=== PATIENT | male | born 1940 | race Caucasian/White ===

== ENCOUNTER 2017-08-30 12:01 | Observation (INO) | payer BC ==
[2017-08-30 12:25] LABS: #Basophils 0.1 thou/uL (0.0-0.2); #Eosinphils 0.2 thou/uL (0.0-0.7); #Monocytes 0.5 thou/uL (0.11-0.59); #Neutrophils 6.6 thou/uL (1.40-6.50); %Basophils 0.6 % (0.0-1.0); %Eosinophils 2.2 % (0.0-10.0); %Lymphocytes 21.6 % (21.0-51.0); %Monocytes 5.6 % (0.0-10.0); Hemoglobin 16.2 g/dL (14.0-18.0); Mean Corpuscular HGB CONC 33.7 g/dL (32.0-36.0); Mean Corpuscular Hemoglobin 30.6 pg (27.0-31.0); Mean Corpuscular Volume 90.7 fl (80.0-94.0); Mean Platelet Volume 7.7 fL (7.4-10.4); Platelet Count 285 thou/uL (130-400); Red Blood Cell (RBC) Count 5.31 mill/uL (4.70-6.10); White Blood Cell (WBC) Count 9.5 thou/uL (4.8-10.8)
[2017-08-30 12:39] LABS: ALT (SGPT) 15 U/L (8-55); AST (SGOT) 17 U/L (5-34); Albumin 4.5 g/dL (3.4-4.8); Alkaline Phosphatase 105 U/L (40-150); Anion Gap 14 mmol/L (10-20); BUN (Urea Nitrogen) 13 mg/dL (8.4-25.7); Bilirubin, Total 0.4 mg/dL (0.2-1.2); Calc. Creatinine Clearance 0 mL/min (70-130); Calcium 9.6 mg/dL (7.8-10.44); Carbon Dioxide 23 mmol/L (23-31); Chloride 103 mmol/L (98-107); Estimated GFR-MDRD 71; Globulin 2.9 g/dL (2.4-3.5); Glucose 206 mg/dL (83-110); Potassium 4.3 mmol/L (3.5-5.1); Protein, Total 7.4 g/dL (5.8-8.1); Sodium 136 mmol/L (136-145)
[2017-08-30 12:43] LABS: CKMB 0.6 ng/mL (0-6.6); Troponin I Less than 0.010 ng/mL (< 0.028)
--- NOTE | 2017-08-30 12:43 | RAD ---
CHEST 1 VIEW: HISTORY: Chest pain. FINDINGS: Cardiac silhouette and pulmonary vasculature are unremarkable. Mediastinum midline with aortic calci fication. No lobar consolidation or evidence of pneumothorax. activity therapist leads overlie the joanie st. IMPRESSION: Atherosclerosis. No active cardiopulmonary abnormalities are otherwise demonstrated. POS: H
--- NOTE | 2017-08-30 13:08 | CT ---
CT BRAIN: HISTORY: Left-sided chest pain, neck pain, tingling, and numbness. FINDINGS: Noncontrast-enhanced CT images of the brain were obtained. The brain is unremarkable. No evidence of intracranial masses, hemorrhages, strokes, or contusions s een. IMPRESSION: Normal CT brain. POS: ALEX
[2017-08-30] MEDS ORDERED: Mag-Al 1200 mg/1200 mg/30 ML UDCUP PO PRN (15:04)
[2017-08-30] MEDS ORDERED: Diabetic Tussin 200 MG/10 ML UDCUP PO PRN (15:04)
[2017-08-30] MEDS ORDERED: Loperamide HCl 2 MG CAP PO PRN (15:04)
[2017-08-30] MEDS ORDERED: hydrALAZINE 20 MG/ML VIAL SLOW IVP PRN (15:04)
[2017-08-30] MEDS ORDERED: Artificial Tears 18 DROP/0.9 ML EA EYE PRN (15:04)
[2017-08-30] MEDS ORDERED: Acetaminophen 325 MG TAB PO PRN (15:04)
[2017-08-30] MEDS ORDERED: Zolpidem Tartrate 5 MG TAB PO PRN (15:04)
[2017-08-30] MEDS ORDERED: Senokot 8.6 MG TAB PO PRN (15:04)
[2017-08-30] MEDS ORDERED: Sodium Chloride 0.65% Nasal 44 ML BOT EA NARE PRN (15:04)
[2017-08-30] MEDS ORDERED: Milk Of Magnesia 30 ML UDCUP PO PRN (15:04)
[2017-08-30] MEDS ORDERED: Ondansetron HCl/PF 4 MG/2 ML Vial IVP PRN (15:04)
[2017-08-30] MEDS ORDERED: Nitroglycerin 0.4 MG TAB (25 Tab Bottle) SL PRN (15:04)
[2017-08-30] MEDS ORDERED: Ondansetron ODT 4 MG TAB PO PRN (15:04)
[2017-08-30] MEDS ORDERED: Eucerin (Mineral Oil/Petrolatum,White) 30 gm Jar TOP PRN (15:04)
[2017-08-30] MEDS ORDERED: Loratadine 10 MG TAB PO PRN (15:04)
[2017-08-30] MEDS ORDERED: HYDROcodone/Acetaminophen 5/325 mg Tablet PO PRN (15:04)
--- NOTE | 2017-08-30 15:32 | HP ---
PRIMARY CARE PHYSICIAN: [facility] call admission. REASON FOR ADMISSION: Chest pain and paraesthesia left upper and lower extremity. HISTORY OF PRESENT ILLNESS: This is a 76-year-old male, who has no significant medical history, who has not seen doctors, never been hospitalized for the last 50 years. This morning around 10:00, he was at home, he was feeling weak. He started having occipital headache , throbbing in nature. Subsequently, he was experiencing left-sided chest pain with paresthesia in t he left upper extremity as well as left lower extremity. He denied any motor weakness. He denied an y facial asymmetry. He denied any associated nausea, vomiting, diaphoresis. He denies any fall, los s of consciousness, seizure, or speech problem. His chest pain subsided, but his paresthesia in left upper and lower extremity was persisted. His he adache intensity was also reduced. He never had this type of problem. He took 2 baby aspirin at [facility], and subsequently, he came to emergency room for evaluation. In the emergency room, he was still complaining of mild headache, paresthesia in left upper and lower extremity as well as some neck discomfort. He denies any right-sided symptoms. He denies any relat ion of chest pain with food, respiration, or activity. He denies any constipation, diarrhea, melena, or hematochezia. He denies any UTI symptoms. In the emergency room, this patient had CT brain and CT [place] both were negative. Routine blood test was also unremarkable. The patient was able to walk to the bathroom by himself. He was feeling some funny sensation on left upper and lower extremity. REVIEW OF SYSTEMS: The following complete review of systems was negative, unless otherwise mentioned in the HPI or below: Constitutional: Weight loss or gain, ability to conduct usual activities. Sk in: Rash, itching. Eyes: Double vision, pain. ENT/Mouth: Nose bleeding, neck stiffness, pain, te nderness. Cardiovascular: Palpitations, dyspnea on exertion, orthopnea. Respiratory: Shortness of breath, wheezing, cough, hemoptysis, fever, or night sweats. Gastrointestinal: Poor appetite, abdo mukul pain, heartburn, nausea, vomiting, constipation, or diarrhea. Genitourinary: Urgency, frequen cy, dysuria, nocturia. Musculoskeletal: Pain, swelling. Neurologic/Psychiatric: Anxiety, depressi on. Allergy/Immunologic: Skin rash, bleeding tendency. Please see my HPI for pertinent positive an d negative. All other review of systems reviewed and negative except as mentioned in the HPI. PAST MEDICAL HISTORY: The patient denies any previous medical history, never been in hospital, never been to the doctor's. Does not know his cholesterol status and never checked his blood pressure in the past. PAST SURGICAL HISTORY: Bilateral cataract surgery. PAST PSYCHIATRIC HISTORY: Reviewed and negative. SOCIAL HISTORY: Patient is and lives at home with family. He is still working with computer -related work. He denies any smoking. He denies any alcohol abuse. He denies any other illicit roland g abuse. He quit smoking 30 years ago. FAMILY HISTORY: Positive for hypertension, diabetes, heart disease among several family members incl uding brother and parents. ALLERGIES: Patient is not taking IBUPROFEN, NAPROXEN, because of hives. CURRENT HOME MEDICATIONS: Patient is not taking any prescribed or non-prescribed medication on regul ar basis. EMERGENCY ROOM COURSE: Reviewed. PHYSICAL EXAMINATION: VITAL SIGNS: On arrival, blood pressure 184/85, pulse 77, respiratory rate 17, temperature 97.5, sat uration 98% on room air, weight 80.2 kilograms. GENERAL: Patient is currently alert, awake, in no obvious acute distress. HEENT: Head: Normocephalic, atraumatic. Eyes: Pupils round, reactive to light. Extraocular muscl e intact. ENT: Oropharynx within normal limits. Moist mucous membranes, no oral lesion, no pharyng eal erythema, no exudate. NECK: Supple, no JVD, no thyromegaly, no carotid bruit, no jugular venous distention. LUNGS: Clear to auscultation without any rhonchi or rales. CARDIAC: S1 and S2 regular. No murmur, no gallop, no rub. ABDOMEN: Soft, bowel sounds present, nontender, nondistended. No organomegaly, no mass, no suprapub ic tenderness. BACK EXAMINATION: Unremarkable, no CVA tenderness. EXTREMITIES: Upper extremities, passive movement of all joints are normal. Lower extremities, no ed suzi. Good peripheral pulsation. SKIN: No skin rash. HEMATOLOGICAL SYSTEM: No lymphadenopathy. PSYCHIATRIC: Normal affect. NEUROLOGIC: The patient is alert, oriented x3. Cranial nerves II-XII intact. Speech, normal. Gait normal. Motor 5/5 in all 4 limbs. Sensation reduced on the left upper and lower extremity. No cer ebellar sign. Plantar bilateral flexor. IMAGING: EKG showing normal sinus rhythm without any ischemic changes. CT brain, based on my review , no acute intracranial process. CT cervical spine with a CT [place] negative for any abnor mality. Chest x-ray normal. SIGNIFICANT LABORATORY DATA: CBC: WBC 9.5, hemoglobin 16.2, platelet 285. BMP: Sodium 136, potass ium 4.3, chloride 103, carbon dioxide 23, anion gap 14, BUN 13, creatinine 1.02, glucose 206, calcium 9.6. LFT: AST 17, ALT 15, alkaline phosphatase 105, albumin 4.5. CK-MB 0.6, troponin I less than 0.010. ASSESSMENT AND PLAN: 1. Acute chest pain. Cardiac enzymes are negative. EKG is normal. Description is atypical. He green s new diagnosis of hypertension. We will keep this patient in the hospital for observation. We will do serial cardiac enzymes and rule out acute coronary syndrome. We will continue with aspirin 325 m g p.o. daily, nitro patch q.8 hourly, check lipid profile for risk stratification, and we will perfor m Cardiolite stress test tomorrow morning for diagnostic reason. 2. Left upper and lower extremity paraesthesia, rule out cerebrovascular accident. The patient's pr esentation with occipital headache and left-sided upper and lower extremity paraesthesia is not entir jen explained by one thing. We need to rule out cerebrovascular accident. We will do neuro check q. 4 hourly. We will keep him on stroke floor. We will obtain MRI brain, echocardiography, as a part o f stroke workup. We will also obtain carotid Doppler to rule out any carotid stenosis. We are going to check a lipid profile, homocysteine level tomorrow, and we will continue with Lipitor 20 mg p.o. at bedtime and we will start lisinopril 5 mg p.o. daily. 3. New onset hypertension, undiagnosed. We will start lisinopril 5 mg p.o. daily and we will monito r vital signs more frequently and adjust blood pressure medication. 4. Deep venous thrombosis prophylaxis. Lovenox 40 mg subcutaneous daily. 5. Gastrointestinal prophylaxis. Pepcid 20 mg p.o. b.i.d. 6. Code status: The patient is FULL CODE. The patient's is surrogate decision maker. Disposition plan based on clinical course. We are expecting patient's stay in hospital [address] of care discussed with the patient and family member at bedside in the emergency room. ADDENDUM: The patient had CT angio, head and neck, in the emergency room and that is why we will can subhash carotid Doppler.
[2017-08-30 16:13] LABS: Troponin I 0.017 ng/mL (< 0.028)
[2017-08-30] MEDS ORDERED: ISOVUE-370 76%-LOCM 1 ML ONE (16:39)
[2017-08-30 17:26] VITALS: BMI 26.6
[2017-08-30 18:58] LABS: Troponin I Less than 0.010 ng/mL (< 0.028)
[2017-08-30 20:01] LABS: Bilirubin Negative (Negative); Blood, Urine Negative (Negative); Clarity CLEAR (Clear); Glucose, Urine (Dipstick) 250 mg/dL (Negative); Leukocyte Negative (Negative); Nitrite Negative (Negative); Protein, Urine (Dipstick) Negative (Neg-Trace); Specific Gravity, Urine 1.015 (1.002-1.036)
[2017-08-30 20:03] LABS: Bacteria/HPF None Seen HPF (None Seen); Hyaline Casts/LPF 0-3 HYALINE CAST LPF (0-3 Hyaline); Pathc Cast-AUWi Flag 0.43 (0-2.49); RBC/HPF 0-3 HPF (0-3); Squamous Epithelial None Seen HPF (0-3); WBC/HPF 0-3 HPF (0-3)
[2017-08-30] MEDS: Nitroglycerin 2% Ointment 1 INCH/1 GM Packet TOP SCH (20:37)
[2017-08-30] MEDS: Famotidine 20 MG TAB PO SCH (20:37)
[2017-08-30] MEDS ORDERED: Atorvastatin Calcium 20 MG TAB PO SCH (21:00)
[2017-08-31 04:53] LABS: Hemoglobin A1c 8.2 % (4.0-6.0)
[2017-08-31 05:15] LABS: Cardiac Risk 4.8 (Less than 4.5)
[2017-08-31] MEDS ORDERED: Dextrose 5% in Water 1,000 ML IV PRN (06:04)
[2017-08-31] MEDS ORDERED: HumaLOG 300 UNITS/3 ML VIAL SC PRN ×2 (06:04)
[2017-08-31] MEDS ORDERED: Dextrose 50% Abboject 50 ML SYRINGE SLOW IVP PRN (06:04)
[2017-08-31] MEDS: Nitroglycerin 2% Ointment 1 INCH/1 GM Packet TOP SCH ×2 (06:23→14:04)
--- NOTE | 2017-08-31 08:21 | PDOC.PN ---
- Subjective Encounter Start Date: 08/31/17 Encounter Start Time: 06:40 -: old records requested/rev Patient seen and examined for parasthesia, no chest pain. No new complaints. No overnight events - Objective Resuscitation Status: Resuscitation Status FULL:Full Resuscitation MAR Reviewed: Yes Vital Signs & Weight: Vital Signs (12 hours) Temp Pulse Resp BP Pulse Ox 08/31/17 07:04 97 08/31/17 03:27 98.6 F 87 20 100/58 L 97 08/30/17 23:43 98.6 F 79 18 120/64 96 08/30/17 21:00 98.2 F 79 18 Weight Weight 180 lb 6.4 oz I&O: 08/30/17 08/31/17 09/01/17 06:59 06:59 06:59 Intake Total 10 Balance 10 Result Diagrams: 08/30/17 12:12 08/30/17 12:12 EKG Reviewed by me: Yes (nsr) Phys Exam - Physical Examination Constitutional: NAD HEENT: PERRLA, moist MMs, sclera anicteric Neck: no JVD, supple Respiratory: no wheezing, no rales, no rhonchi Cardiovascular: RRR, no significant murmur, no rub Gastrointestinal: soft, non-tender, no distention, positive bowel sounds Musculoskeletal: no edema, pulses present Neurological: non-focal, moves all 4 limbs Lymphatic: no nodes Psychiatric: normal affect, A&O x 3 Skin: no rash, normal turgor Dx/Plan (1) Arm paresthesia, left Code(s): R20.2 - PARESTHESIA OF SKIN Status: Acute (2) Chest pain Code(s): R07.9 - CHEST PAIN, UNSPECIFIED Status: Acute (3) Hypertension Code(s): I10 - ESSENTIAL (PRIMARY) HYPERTENSION Status: Acute (4) New onset type 2 diabetes mellitus Code(s): E11.9 - TYPE 2 DIABETES MELLITUS WITHOUT COMPLICATIONS Status: Acute (5) Dyslipidemia Code(s): E78.5 - HYPERLIPIDEMIA, UNSPECIFIED Status: Acute - Plan cont current plan of care, plan discussed w/ family * start metformin 1000 mg po bid * lisinopril, lipitor and aspirine on discharge * today MRI, echo and stress test, if all negative, will discharge later today * if e/o stroke or abnormal stress test, will change to inpt and monitor in hospital * start hyperglycemia protocol treatment * consult dietary for ada diet * discussed with . Review of Systems - Review of Systems Constitutional: negative: fever, chills, sweats, weakness, malaise, other Eyes: negative: Pain, Vision Change, Conjunctivae Inflammation, Eyelid Inflammation, Redness, Other ENT: negative: Ear Pain, Ear Discharge, Nose Pain, Nose Discharge, Nose Congestion, Mouth Pain, Mouth Swelling, Throat Pain, Throat Swelling, Other Respiratory: negative: Cough, Dry, Shortness of Breath, Hemoptysis, SOB with Excertion, Pleuritic Pain, Sputum, Wheezing Gastrointestinal: negative: Nausea, Vomiting, Abdominal Pain, Diarrhea, Constipation, Melena, Hematochezia, Other Genitourinary: negative: Dysuria, Frequency, Incontinence, Hematuria, Retention , Other Musculoskeletal: negative: Neck Pain, Shoulder Pain, Arm Pain, Back Pain, Hand Pain, Leg Pain, Foot Pain, Other Skin: negative: Rash, Lesions, Reza, Bruising, Other Neurological: Numbness. negative: Weakness, Incoordination, Change in Speech, Confusion, Seizures, Other - Medications/Allergies Allergies/Adverse Reactions: Allergies Allergy/AdvReac Type Severity Reaction Status Date / Time ibuprofen Allergy Verified 08/30/17 17:02 Medications: Current Medications Acetaminophen (Tylenol) 650 mg PO Q4H PRN PRN Reason: Headache/Fever or Pain Hydrocodone Bitart/Acetaminophen ([place] 5/325) 1 tab PO Q4H PRN PRN Reason: Moderate Pain (4-6) Al Hydroxide/Mg Hydroxide (Maalox) 30 ml PO Q6H PRN PRN Reason: Heartburn or Indigestion Artificial Tears (Tears Naturale) 0 drop EA EYE PRN PRN PRN Reason: Dry Eyes Aspirin (Ecotrin) 325 mg PO DAILY [facility] Atorvastatin Calcium (Lipitor) 20 mg PO HS [facility] Last Admin: 08/30/17 20:37 Dose: 20 mg Dextrose/Water (Dextrose 50%) 25 gm SLOW IVP PRN PRN PRN Reason: Hypoglycemia Enoxaparin Sodium (Lovenox) 40 mg SC 0900 [facility] Famotidine (Pepcid) 20 mg PO BID [facility] Last Admin: 08/30/17 20:37 Dose: 20 mg Glucagon (Glucagon) 1 mg IM PRN PRN PRN Reason: Hypoglycemia Guaifenesin (Robitussin Sf) 200 mg PO Q4H PRN PRN Reason: Cough Hydralazine HCl (Apresoline) 10 mg SLOW IVP Q4H PRN PRN Reason: Systolic BP > 180 Last Admin: 08/30/17 15:59 Dose: 10 mg Dextrose/Water (D5w) 1,000 mls @ 0 mls/hr IV .Q0M PRN; As Directed PRN Reason: Hypoglycemia Insulin Human Lispro (Humalog) 0 units SC .MODERATE SLIDING SC PRN PRN Reason: Moderate Correctional Scale Insulin Human Lispro (Humalog) 0 units SC .BEDTIME SLIDING SC PRN PRN Reason: Bedtime Correctional Scale Lisinopril (Zestril) 5 mg PO DAILY JAELYN Loperamide HCl (Imodium) 2 mg PO PRN PRN PRN Reason: Diarrhea/Loose Stools Loratadine (Claritin) 10 mg PO DAILYPRN PRN PRN Reason: Sinus Symptoms Magnesium Hydroxide (Milk Of Magnesium) 30 ml PO DAILYPRN PRN PRN Reason: Constipation Mineral Oil/White Petrolatum (Eucerin Cream) 0 gm TOP BIDPRN PRN PRN Reason: Dry Skin Nitroglycerin (Nitro-Bid 2% Ointment) 0.5 inch TOP Q8HR JAELYN Last Admin: 08/31/17 06:23 Dose: Not Given Nitroglycerin (Nitrostat) 0.4 mg SL Q5MIN PRN PRN Reason: Chest Pain Ondansetron HCl (Zofran Odt) 4 mg PO Q6H PRN PRN Reason: Nausea/Vomiting Ondansetron HCl (Zofran) 4 mg IVP Q6H PRN PRN Reason: Nausea/Vomiting Senna (Senokot) 2 tab PO HSPRN PRN PRN Reason: Constipation Sodium Chloride ([place] Nasal [place] 0.65%) 0 ml EA NARE QIDPRN PRN PRN Reason: Nasal Congestion Zolpidem Tartrate (Ambien) 5 mg PO HSPRN PRN PRN Reason: Insomnia
[2017-08-31] MEDS ORDERED: Aspirin 325 mg Enteric Coated Tablet PO SCH (09:00)
[2017-08-31] MEDS ORDERED: Enoxaparin Sodium 40 MG/0.4 ML SYRINGE SC SCH (09:00)
[2017-08-31] MEDS ORDERED: Lisinopril 5 MG TAB PO SCH (09:00)
[2017-08-31] MEDS ORDERED: ADENOSINE 60 MG/20 ML VIAL ONE (09:51)
--- NOTE | 2017-08-31 10:35 | MRI ---
NONCONTRAST ENHANCED MRI IMAGES BRAIN: HISTORY: Left-sided weakness since yesterday. FINDINGS: Multiplanar, multisequence noncontrast enhanced MRI images of the brain obtained. Images demonstrate diffuse cortical atrophy and deep white matter ischemic changes. The patient has had previous bilateral cataract surgeries. No evidence of acute intracranial masses, hemorrhages, st rokes, or contusions seen. Ventricles are of normal size. IMPRESSION: Unremarkable MRI of brain. POS: GREGORY
--- NOTE | 2017-08-31 10:37 | DIS ---
DATE OF ADMISSION: 08/30/2017 DATE OF DISCHARGE: 08/31/2017 PRIMARY CARE PHYSICIAN: [facility] call admission. DISCHARGE DISPOSITION: Home. PRIMARY DISCHARGE DIAGNOSES: 1. Chest pain, ruled out acute coronary syndrome. 2. Sensory paraesthesia, left upper and lower extremity. 3. New onset diabetes type 2. 4. Dyslipidemia. 5. Hypertension. PRIMARY PROCEDURE AND OPERATION: None. RADIOLOGICAL INVESTIGATION: CT [place] including CT angiography head and neck negative. CT brain negative. Chest x-ray normal. SIGNIFICANT LABORATORY DATA: WBC 9.5, hemoglobin 16.2, platelet 285. Sodium 136, creatinine 1.02. LFT normal. Cardiac enzymes negative. LDL 107. Homocysteine 10.12, hemoglobin A1c 8.2. Urinalysis , glucose present. DISCHARGE MEDICATIONS: Lisinopril 5 mg p.o. daily, aspirin 325 mg p.o. daily, metformin 1000 mg p.o. b.i.d. CONTRAINDICATIONS: None. CODE STATUS: FULL CODE. INPATIENT CONSULTANTS: None. ALLERGIES: IBUPROFEN. DISCHARGE PLAN: Post hospital, the patient will make appointment with primary care physician. He wa nts to make appointment with Dr. Cote. TEST RESULTS PENDING ON DISCHARGE: Echocardiography, stress test and MRI brain. HOSPITAL COURSE: A 76-year-old male with no medical problem who was admitted by me. Please see my H PI for further detail. He was having chest pain and subsequently he was experiencing left upper and lower extremity paraesthesia and that is why he was admitted to the hospital for observation. We did serial cardiac enzyme and ruled out acute coronary syndrome. We were suspecting stroke and that is why we did MRI brain. His initial CT brain and CT angiography head and neck was negative. MRI is pe nding by the time of dictation. He had chest pain and that is why we did stress test and the result is pending by the time of dictation. We are also doing echocardiography, result is pending by the ti me of dictation. He has new onset of diabetes and that is why we provided diabetes education and we started metformin therapy. We started lisinopril for hypertension, Lipitor for cholesterol and aspir in is instructed to take every day basis. Overall, this patient is stable for discharge if all investigation is negative later on today. Plan of care discussed with the family member. The patient is seen and examined at bedside today. Please see my progress note from today for further detail.
[2017-08-31] MEDS: Famotidine 20 MG TAB PO SCH (14:00)
--- NOTE | 2017-08-31 14:38 | NM ---
RADIONUCLIDE STRESS REST MYOCARDIAL PERFUSION SCAN WITH CT ATTENUATION CORRECTION AND SPECT IMAGING LEFT VENTRICULAR WALL MOTION EVALUATION AND EJECTION FRACTION: HISTORY: Chest pain. FINDINGS: Adenosine protocol was used. There is homogeneous uptake of radiotracer throughout the left ventricu lar myocardium. No focal perfusion defect or reversibility. QGS analysis of gated SPECT images show s no focal wall motion abnormalities. Ejection fraction is calculated at 70%. IMPRESSION: Normal myocardial perfusion scan. Normal left ventricular ejection fraction. POS: GREGORY
[2017-08-31 16:16] VITALS: BP 145/68; TEMP 98.4
--- NOTE | 2017-09-01 07:27 | CT ---
CT ARTERIOGRAM NECK WITH IV CONTRAST AND 3D MIP IMAGING CT ARTERIOGRAM HEAD WITH IV CONTRAST AND 3D MIP IMAGING CT BRAIN WITH IV CONTRAST: HISTORY: Headache. TIA. FINDINGS: Emphysematous changes are present at the lung apices. There are degenerative changes of the cervical spine. Calcification within the aortic arch with normal branching of the great vessels. Good flow into each carotid artery and vertebral artery with a dominant right vertebral artery. At each carotid bifurcation, there is mild plaque and calcification without significant stenosis. Pr ominent calcifications are present within each carotid siphon. No evidence of stenosis. [place] is patent. No focal aneurysm or filling defect. No abnormal areas of intracranial enhancement are evident. IMPRESSION: Atherosclerosis. No evidence of significant stenosis. No acute intracranial abnormalities are demon strated. POS: GREGORY
== END 2017-08-31 18:13 | disposition home or self-care (01) ==
LOC: ERS 12:01 → INTOOBSV 14:14 → 2SE 14:14
PROVIDERS: ADMIT Internal Medicine; ATTEND Internal Medicine
DX: R07.89 Other chest pain (principal); R20.2 Paresthesia of skin; R51 Headache; I10 Essential (primary) hypertension; E11.9 Type 2 diabetes mellitus without complications; E78.5 Hyperlipidemia, unspecified; Z87.891 Personal history of nicotine dependence; Z88.6 Allergy status to analgesic agent
CPT/HCPCS: 36415; 36416; 70450; 70496; 70498; 70551; 71045; 78452; 80053; 80061; 81001; 82553; 83036; 83090; 84484; 85025; 93005; 93017; 93306; 94760; 96372; 96374; A9500; G0378; J0153; J0360; J1650

== ENCOUNTER 2017-09-04 11:32 | Emergency (ER) | payer BC ==
[2017-09-04 12:14] LABS: #Basophils 0.1 thou/uL (0.0-0.2); #Eosinphils 0.1 thou/uL (0.0-0.7); #Lymphocytes 1.4 thou/uL (1.20-3.40); #Monocytes 0.7 thou/uL (0.11-0.59); #Neutrophils 10.8 thou/uL (1.40-6.50); %Basophils 0.5 % (0.0-1.0); %Eosinophils 0.5 % (0.0-10.0); %Lymphocytes 10.6 % (21.0-51.0); %Monocytes 5.5 % (0.0-10.0); Mean Corpuscular HGB CONC 35.1 g/dL (32.0-36.0); Mean Corpuscular Hemoglobin 31.4 pg (27.0-31.0); Mean Corpuscular Volume 89.4 fl (80.0-94.0); Mean Platelet Volume 7.3 fL (7.4-10.4); Platelet Count 283 thou/uL (130-400); RBC Distribution Width 11.9 % (11.5-14.5)
[2017-09-04 12:41] LABS: ALT (SGPT) 16 U/L (8-55); AST (SGOT) 21 U/L (5-34); Albumin 4.3 g/dL (3.4-4.8); Alkaline Phosphatase 75 U/L (40-150); Anion Gap 15 mmol/L (10-20); BUN (Urea Nitrogen) 16 mg/dL (8.4-25.7); Bilirubin, Total 0.8 mg/dL (0.2-1.2); CK (CPK) 122 U/L (30-200); Calc. Creatinine Clearance 0 mL/min (70-130); Calcium 9.5 mg/dL (7.8-10.44); Carbon Dioxide 20 mmol/L (23-31); Chloride 96 mmol/L (98-107); Estimated GFR-MDRD 70; Globulin 2.7 g/dL (2.4-3.5); Glucose 120 mg/dL (83-110); Potassium 4.4 mmol/L (3.5-5.1); Sodium 127 mmol/L (136-145)
[2017-09-04 12:42] LABS: CKMB 1.9 ng/mL (0-6.6); Troponin I Less than 0.010 ng/mL (< 0.028)
[2017-09-04 13:12] LABS: Bilirubin Negative (Negative); Blood, Urine Negative (Negative); Clarity CLEAR (Clear); Glucose, Urine (Dipstick) Negative (Negative); Leukocyte Negative (Negative); Nitrite Negative (Negative); Protein, Urine (Dipstick) Negative (Neg-Trace); Specific Gravity, Urine 1.024 (1.002-1.036); Urobilinogen 0.2 mg/dL (0.2-1.0)
== END 2017-09-04 16:54 | disposition home or self-care (01) ==
LOC: ERS 11:32
DX: E86.0 Dehydration (principal); E11.9 Type 2 diabetes mellitus without complications; I10 Essential (primary) hypertension; Z79.82 Long term (current) use of aspirin; Z79.899 Other long term (current) drug therapy; Z79.84 Long term (current) use of oral hypoglycemic drugs
CPT/HCPCS: 36416; 80053; 81003; 82553; 84484; 85025; 87086; 93005; 96360; 96361

== ENCOUNTER 2017-09-09 13:30 | Outpatient (CLI) | payer BC | END 2017-09-09 13:31 | disposition home or self-care (01) | LOC: MWLC DTY 13:30 | PROVIDERS: ATTEND Internal Medicine Geriatric Medicine | DX: E11.9 Type 2 diabetes mellitus without complications (principal); Z71.3 Dietary counseling and surveillance | CPT/HCPCS: 97802 ==

== ENCOUNTER 2019-10-22 23:28 | Inpatient (IN) | payer MEDICARE, OTHER ==
[2019-10-23 00:16] LABS: #Basophils 0.1 thou/uL (0.0-0.2); #Eosinphils 0.3 thou/uL (0.0-0.7); #Lymphocytes 1.1 thou/uL (1.20-3.40); #Monocytes 0.9 thou/uL (0.11-0.59); #Neutrophils 8.1 thou/uL (1.40-6.50); %Eosinophils 2.5 % (0.0-10.0); %Lymphocytes 10.8 % (21.0-51.0); %Monocytes 8.6 % (0.0-10.0); %Neutrophils 77.2 % (42.0-75.0); Hemoglobin 15.5 g/dL (14.0-18.0); Mean Corpuscular HGB CONC 36.3 g/dL (32.0-36.0); Mean Corpuscular Hemoglobin 31.8 pg (27.0-31.0); Mean Corpuscular Volume 87.7 fL (78.0-98.0); Mean Platelet Volume 7.8 fL (7.4-10.4); Platelet Count 254 thou/uL (130-400); RBC Distribution Width 11.5 % (11.5-14.5); Red Blood Cell (RBC) Count 4.87 mill/uL (4.70-6.10); White Blood Cell (WBC) Count 10.5 thou/uL (4.8-10.8)
[2019-10-23 00:42] LABS: ALT (SGPT) 21 U/L (8-55); AST (SGOT) 32 U/L (5-34); Albumin 4.2 g/dL (3.4-4.8); Alkaline Phosphatase 95 U/L (40-110); Anion Gap 13 mmol/L (10-20); BUN (Urea Nitrogen) 9 mg/dL (8.4-25.7); Calc. Creatinine Clearance 0 mL/min (70-130); Calcium 9.3 mg/dL (7.8-10.44); Carbon Dioxide 21 mmol/L (23-31); Chloride 78 mmol/L (98-107); Estimated GFR-MDRD Greater than 90; Globulin 2.5 g/dL (2.4-3.5); Glucose 150 mg/dL (83-110); Potassium 4.7 mmol/L (3.5-5.1); Protein, Total 6.7 g/dL (5.8-8.1)
[2019-10-23 00:56] LABS: Sodium 107 mmol/L (136-145)
[2019-10-23 01:05] LABS: Acetaminophen Less than 6.0 mcg/mL (10.0-30.0); Alcohol Less than 10 mg/dL (Less than 10); Salicylate Less than 8.0 mg/dL (15.0-30.0)
[2019-10-23 01:08] LABS: CKMB 9.4 ng/mL (0-6.6)
[2019-10-23 01:19] LABS: Bacteria/HPF None Seen HPF (None Seen); Bilirubin Negative (Negative); Blood, Urine 1+ (Negative); Clarity Clear (Clear); Glucose, Urine (Dipstick) 500 mg/dL (Negative); Ketone, Urine Trace mg/dL (Negative); Leukocyte 75 Leu/uL (Negative); Nitrite Negative (Negative); Protein, Urine (Dipstick) Negative (Neg-Trace); Specific Gravity, Urine 1.016 (1.002-1.036); Squamous Epithelial 0-3 HPF (0-3); Urobilinogen Normal mg/dL (Less than 2); pH, Urine 6.5 (5.0-9.0)
[2019-10-23 02:09] LABS: Amphetamine Not Detected (NotDetected); Barbiturates Screen Not Detected (NotDetected); Benzodiazepine Screen Not Detected (NotDetected); Cocaine Metabolite Screen Not Detected (NotDetected); Medtox Control Line Valid? VALID (VALID); Medtox Reader # READER 4; Methadone Not Detected (NotDetected); Methamphetamine Not Detected (NotDetected); Opiate Screen Not Detected (NotDetected); Oxycodone Screen Not Detected (NotDetected); Phencyclidine (PCP) Not Detected (NotDetected); THC/Cannabinoid Screen Not Detected (NotDetected); Tricyclic Screen Not Detected (NotDetected)
[2019-10-23] MEDS ORDERED: Guaifenesin DM 100-10/5 ML UDCUP PO PRN (03:24)
[2019-10-23] MEDS ORDERED: Labetalol HCl 100 MG/20 ML VIAL SLOW IVP PRN (03:24)
[2019-10-23] MEDS ORDERED: Ondansetron PF 4 MG/2 ML Vial IVP PRN (03:24)
[2019-10-23] MEDS ORDERED: cloNIDine 0.1 MG TAB PO PRN (03:24)
[2019-10-23] MEDS ORDERED: Promethazine HCl 12.5 MG in Sodium Chloride 0.9% 50 ML IVPB PRN (03:24)
[2019-10-23] MEDS ORDERED: Morphine 2 MG/ML VIAL SLOW IVP PRN (03:24)
[2019-10-23] MEDS ORDERED: HYDROcodone/Acetaminophen 5/325 mg Tablet PO PRN (03:24)
[2019-10-23] MEDS ORDERED: Bisacodyl 10 MG SUPP PR PRN (03:26)
--- NOTE | 2019-10-23 03:27 | PDOC.HHP ---
Hospitalist HPI - History of Present Illness Altered mental status History of Present Illness: Patient is a 78 year old male with PMH T2DM, HTN who presents to ED for weakness , altered mental status x 5-6 days. Patient reports he has become weaker, less able to ambulate (normally fully ambulatory), he reports fuzzy thinking, he fell in closet the other day, denies seizures, denies LOC or head trauma, he had a CT head in ED concerning for old stroke but no acute findings. In ED, sodium 107 which is new for patient. He reports attempts to stay hydrated and drinks a few water bottles a day, but is drinking much less than a gallon of water a day. UDS negative in ED. Denies fever, nausea, vomiting, covid exposure , no pain. he is slow to answer but talkative and oriented and able to answer questions. PAtient to be admitted for symptomatic hyponatremia. Hospitalist ROS - Review of Systems Constitutional: reports: other (altered mental status). denies: fever, chills, sweats, weakness, malaise Eyes: denies: pain, vision change, conjunctivae inflammation, eyelid inflammation, redness, other ENT: denies: ear pain, ear discharge, nose pain, nose discharge, nose congestion , mouth pain, mouth swelling, throat pain, throat swelling, other Respiratory: denies: cough, dry, shortness of breath, hemoptysis, SOB with excertion, pleuritic pain, sputum, wheezing, other Cardiovascular: denies: chest pain, palpitations, orthopnea, paroxysmal noc. dyspnea, edema, light headedness, other Gastrointestinal: denies: nausea, vomiting, abdominal pain, diarrhea, constipation, melena, hematochezia, other Genitourinary: denies: dysuria, frequency, incontinence, hematuria, retention, other Musculoskeletal: denies: neck pain, shoulder pain, arm pain, back pain, hand pain, leg pain, foot pain, other Skin: denies: rash, lesions, hortensia, bruising, other Neurological: reports: confusion. denies: weakness, numbness, incoordination, change in speech, seizures, other All other systems reviewed; all pertinent +/- noted in HPI/Subj - Medication Medications: metFORMIN Sat Oct 23, 2019 01:26 ANNABEL Morgan, Kelly TABLET : Strength - 1,000 mg : ORAL Patient Dose: 500 mg once a day (in the evening). atorvastatin Sat Oct 23, 2019 01:26 ANNABEL Morgan Amanda TABLET : Strength - 20 mg : ORAL Patient Dose: 1 tab(s) once a day (at bedtime). Vitamin D2 Sat Oct 23, 2019 01:27 ANNABEL Morgan Amanda capsule : Strength - 50,000 unit : ORAL Patient Dose: 1 tab(s) once a month. aspirin oral Sat Oct 23, 2019 01:30 ANNABEL Morgan Amanda tablet : Strength - 81 mg : ORAL Patient Dose: once a day. Hospitalist History - Past Medical History Other Medical History: T2DM, HTN - Past Surgical History Other Surgical History: cataract surgery - Family History Family History: reports: no pertinent history - Social History Smoking Status: Former smoker Alcohol: reports: None Drugs: reports: none - Exam General Appearance: NAD, awake alert General - other findings: altered mental status, confused Eye: PERRL, anicteric sclera ENT: normocephalic atraumatic, no oropharyngeal lesions, moist mucosa Neck: supple, symmetric, no JVD, no thyromegaly, no lymphadenopathy, no carotid bruit Heart: RRR, no murmur, no gallops, no rubs, normal peripheral pulses Respiratory: CTAB, no wheezes, no rales, no ronchi, normal chest expansion, no tachypnea, normal percussion Gastrointestinal: soft, non-tender, non-distended, normal bowel sounds, no palpable masses, no hepatomegaly, no splenomegaly, no bruit Extremities: no cyanosis, no clubbing, no edema Skin: normal turgor, no lesions, no rashes Neurological: cranial nerve grossly intact, normal sensation to touch, no weakness, no focal deficits, no new deficit Musculoskeletal: normal tone, normal strength, no muscle wasting Psychiatric: normal affect, normal behavior, A&O x 3 Hospitalist Results - Labs Result Diagrams: 10/23/19 04:16 10/23/19 00:07 Lab results: WBC 10.5 thou/uL (4.8-10.8) 10/23/19 00:07 Hgb 15.5 g/dL (14.0-18.0) 10/23/19 00:07 Hct 42.7 % (42.0-52.0) 10/23/19 00:07 MCV 87.7 fL (78.0-98.0) 10/23/19 00:07 Plt Count 254 thou/uL (130-400) 10/23/19 00:07 Neutrophils % 77.2 % (42.0-75.0) H 10/23/19 00:07 Sodium 107 mmol/L (136-145) L* 10/23/19 00:07 Potassium 4.7 mmol/L (3.5-5.1) 10/23/19 00:07 Chloride 78 mmol/L (98-107) L 10/23/19 00:07 Carbon Dioxide 21 mmol/L (23-31) L 10/23/19 00:07 BUN 9 mg/dL (8.4-25.7) 10/23/19 00:07 Creatinine 0.73 mg/dL (0.7-1.3) 10/23/19 00:07 Glucose 150 mg/dL (83-110) H 10/23/19 00:07 Lactic Acid 2.0 mmol/L (0.5-2.2) 10/23/19 00:22 Calcium 9.3 mg/dL (7.8-10.44) 10/23/19 00:07 Total Bilirubin 1.0 mg/dL (0.2-1.2) 10/23/19 00:07 AST 32 U/L (5-34) 10/23/19 00:07 ALT 21 U/L (8-55) 10/23/19 00:07 Alkaline Phosphatase 95 U/L (40-110) 10/23/19 00:07 CK-MB (CK-2) 9.4 ng/mL (0-6.6) H* 10/23/19 00:07 Troponin I 0.030 ng/mL (< 0.028) H 10/23/19 00:07 Serum Total Protein 6.7 g/dL (5.8-8.1) 10/23/19 00:07 Albumin 4.2 g/dL (3.4-4.8) 10/23/19 00:07 Urine Ketones Trace mg/dL (Negative) A 10/23/19 00:55 Urine Blood 1+ (Negative) A 10/23/19 00:55 Urine Nitrite Negative (Negative) 10/23/19 00:55 Ur Leukocyte Esterase 75 Rohith/uL (Negative) A 10/23/19 00:55 Urine RBC 7-10 HPF (0-3) A 10/23/19 00:55 Urine WBC 11-20 HPF (0-3) A 10/23/19 00:55 Ur Squamous Epith Cells 0-3 HPF (0-3) 10/23/19 00:55 Urine Bacteria None Seen HPF (None Seen) 10/23/19 00:55 Additional comment: VITAL SIGNS Sat Oct 23, 2019 02:50 ANNABEL Morgan, Nicasio BP: 147/89 MAP: 108 Pulse: 84 Resp: 21 Temp: 98.3 (Oral) Pain: 0 O2 sat: 99 on (Room Air) Time: 10/23/2019 02:50. Hospitalist H&P A/P - Plan Plan: 78M with PMH HTN, DM2 who presents to ED for AMS found to have profound hyponatremia # altered mental status # hyponatremia # UTI Patient presents for progressive confusion and altered mental status. Denies seizures. No focal neuro deficits appreciated on exam. Generally weak and slow to answer questions, but oriented X 4. Labs notable for marked hyponatremia. CT brain is unremarkable. IVF started in ED. No obvious polydyspsia or medication that would cause this. - admit to IMCU - BMP q6h - PT/OT consult - IVF - consult nephrology in AM - monitor mental status, neurochecks q8h - ceftriaxone for UTI, follow cultures # DM - SSI # HTN - PRNs ordered DVT/GI ppx Full code
[2019-10-23] MEDS ORDERED: Electrolyte Replacement Protoc 1 EACH EACH FS SCH (03:30)
[2019-10-23] MEDS ORDERED: Albuterol 200 PUFF (6.7GM INHALER) INH PRN (03:37)
[2019-10-23] MEDS: Sodium Chloride 0.9% 1,000 ML IV SCH ×2 (03:38→17:15)
[2019-10-23] MEDS ORDERED: Electrolyte Replacement Protocol FS PRN (03:45)
[2019-10-23 04:29] LABS: #Eosinphils 0.3 thou/uL (0.0-0.7); #Lymphocytes 1.3 thou/uL (1.20-3.40); #Neutrophils 6.4 thou/uL (1.40-6.50); %Basophils 0.5 % (0.0-1.0); %Lymphocytes 14.2 % (21.0-51.0); %Monocytes 11.6 % (0.0-10.0); %Neutrophils 70.8 % (42.0-75.0); Hemoglobin 13.1 g/dL (14.0-18.0); Mean Corpuscular Hemoglobin 30.4 pg (27.0-31.0); Mean Corpuscular Volume 86.7 fL (78.0-98.0); Mean Platelet Volume 7.8 fL (7.4-10.4); Platelet Count 238 thou/uL (130-400); RBC Distribution Width 11.5 % (11.5-14.5); Red Blood Cell (RBC) Count 4.33 mill/uL (4.70-6.10)
[2019-10-23 04:46] LABS: Magnesium 1.5 mg/dL (1.6-2.6); Phosphorus 2.4 mg/dL (2.3-4.7)
[2019-10-23] MEDS ORDERED: Dextrose 5% in Water 1,000 ML IV PRN (05:08)
[2019-10-23] MEDS ORDERED: Dextrose 50% Abboject 50 ML SYRINGE SLOW IVP PRN (05:08)
[2019-10-23] MEDS ORDERED: HumaLOG 300 UNITS/3 ML VIAL SC PRN (05:08)
[2019-10-23] MEDS ORDERED: Vancomycin 1 GM/200 ML BAG ONE (05:18)
[2019-10-23] MEDS: cefTRIAXone\\ROCEPHIN 1 GM in Sodium Chloride 0.9% 100 ML IVPB SCH (05:27)
[2019-10-23 06:34] LABS: Anion Gap 10 mmol/L (10-20); BUN (Urea Nitrogen) 8 mg/dL (8.4-25.7); Calc. Creatinine Clearance 0 mL/min (70-130); Calcium 8.2 mg/dL (7.8-10.44); Carbon Dioxide 20 mmol/L (23-31); Chloride 82 mmol/L (98-107); Estimated GFR-MDRD Greater than 90; Glucose 94 mg/dL (83-110); Potassium 4.2 mmol/L (3.5-5.1)
[2019-10-23 06:41] LABS: Sodium 108 mmol/L (136-145)
--- NOTE | 2019-10-23 07:39 | RAD ---
XR Chest 1 View Portable History: Weakness Comparison: Radiograph 2018 Findings: Lungs are clear. No pneumothorax or effusion. Cardiac silhouette and mediastinal contours a re within normal limits. Impression: No acute intrathoracic abnormality.
--- NOTE | 2019-10-23 07:51 | CT ---
PRELIMINARY REPORT/[facility]/EMERGENCY AFTER HOURS PROCEDURE EXAM: CT Head Without Intravenous Contrast. CLINICAL HISTORY: WEAKNESS X COUPLE DAYS AND PROGRESSIVELY GOTTEN WORSE. PT UNABLE TO STAND. TECHNIQUE: Axial computed tomography images of the head/brain without intravenous contrast. COMPARISON: None provided. FINDINGS: BRAIN: Moderate diffuse bilateral patchy periventricular and subcortical white matter low-density changes ar e present, without associated mass-effect; these are nonspecific, may likely be related to microvascular ischemic disease. 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 Consider MRI to exclude acute changes. VENTRICLES: No hydrocephalus. ORBITS: The orbits are unremarkable. SINUSES AND MASTOIDS: Mild sinus mucosal disease. SOFT TISSUES: No significant facial or scalp soft tissue swelling evident. No radiopaque foreign body is seen. BONES: No acute skull fracture. 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 Consider MRI to exclude acute changes. ELECTRONICALLY SIGNED BY: Nate Bowman MD Oct 23, 2019 1:48:07 AM CDT This report is intended for review by the ordering physician only, in accordance of law. If you recei ve this report in error, please call [facility] at [phone]. FINAL REPORT CT Brain WO Con History: Altered mental status Comparison: CT brain 2018 Findings/impression: Concordant with the preliminary report. Transcribed Date/Time: 10/23/2019 8:45 AM
[2019-10-23] MEDS ORDERED: Magnesium 2 GM/50 ML 2 GM in Premix Bag 1 BAG IVPB SCH (08:00)
[2019-10-23] MEDS ORDERED: Magnesium 2 GM/50 ML BAG (IN WATER) ONE (09:49)
[2019-10-23] MEDS ORDERED: Enoxaparin Sodium 40 MG/0.4 ML SYRINGE ONE (09:49)
[2019-10-23 10:17] LABS: Anion Gap 9 mmol/L (10-20); BUN (Urea Nitrogen) 6 mg/dL (8.4-25.7); Calc. Creatinine Clearance 0 mL/min (70-130); Calcium 8.2 mg/dL (7.8-10.44); Carbon Dioxide 22 mmol/L (23-31); Chloride 83 mmol/L (98-107); Estimated GFR-MDRD Greater than 90; Glucose 95 mg/dL (83-110); Potassium 4.3 mmol/L (3.5-5.1)
[2019-10-23 10:21] LABS: Sodium 110 mmol/L (136-145)
[2019-10-23] MEDS: Enoxaparin Sodium 40 MG/0.4 ML SYRINGE SC SCH (10:30)
[2019-10-23] MEDS ORDERED: hydrALAZINE 20 MG/ML VIAL ONE (10:54)
[2019-10-23] MEDS: hydrALAZINE 20 MG/ML VIAL SLOW IVP PRN ×2 (10:58→19:07)
[2019-10-23 12:30] LABS: Anion Gap 9 mmol/L (10-20); BUN (Urea Nitrogen) 6 mg/dL (8.4-25.7); Calc. Creatinine Clearance 0 mL/min (70-130); Carbon Dioxide 20 mmol/L (23-31); Chloride 83 mmol/L (98-107); Estimated GFR-MDRD Greater than 90; Glucose 96 mg/dL (83-110); Potassium 4.1 mmol/L (3.5-5.1)
[2019-10-23 12:33] LABS: Sodium 108 mmol/L (136-145)
[2019-10-23] MEDS: Polyethylene Glycol 3350 17 GM Packet PO SCH (12:44)
[2019-10-23] MEDS ORDERED: Tolvaptan 15 MG TAB PO SCH (13:00)
--- NOTE | 2019-10-23 14:34 | PDOC.HOSPP ---
- Subjective Encounter Date: 10/23/19 Encounter Time: 12:35 Subjective: Mr. Moore was seen today in follow-up of hyponatremia, and metabolic encephalopathy. He is awake and alert X4 when I went to see him. He says he has been fatigued over the past few days, and has had poor appetite. Prior to this he felt fine. He does not know of having a prior diagnosis of hyponatremia. - Objective Vital Signs & Weight: Vital Signs (12 hours) BP 10/23/19 10:58 188/80 H Result Diagrams: 10/23/19 04:16 10/23/19 12:03 Additional Labs: Accuchecks 10/23/19 10/23/19 10/23/19 09:36 06:13 00:01 POC Glucose 115 H 129 H 166 H Hospitalist ROS - Medication Medications: Active Medications Generic Name Dose Route Start Last Admin Trade Name Freq PRN Reason Stop Dose Admin Enoxaparin Sodium 40 mg 10/23/19 09:00 10/23/19 10:30 Lovenox SC 40 mg 0900 JAELYN Administration Hydralazine HCl 10 mg 10/23/19 03:24 10/23/19 10:58 Apresoline SLOW IVP 10 mg Q6H PRN Administration SBP GREATER THAN 160 Ceftriaxone Sodium 1 gm/ 100 mls @ 200 mls/hr 10/23/19 06:00 10/23/19 05:27 Sodium Chloride IVPB 100 mls 0600 JAELYN Administration Polyethylene Glycol 17 gm 10/23/19 09:00 10/23/19 12:44 Miralax PO 17 gm DAILY JAELYN Administration - Exam Eye: PERRL, anicteric sclera Heart: RRR, no murmur, no gallops, no rubs, normal peripheral pulses Respiratory: CTAB, no wheezes, no rales, no ronchi, normal chest expansion Gastrointestinal: soft, non-tender, non-distended, normal bowel sounds, no palpable masses, no hepatomegaly Extremities: no cyanosis, no edema Hosp A/P (1) Hyponatremia Code(s): E87.1 - HYPO-OSMOLALITY AND HYPONATREMIA Status: Acute (2) Dyslipidemia Code(s): E78.5 - HYPERLIPIDEMIA, UNSPECIFIED Status: Acute (3) Hypertension Code(s): I10 - ESSENTIAL (PRIMARY) HYPERTENSION Status: Acute (4) Hypomagnesemia Code(s): E83.42 - HYPOMAGNESEMIA Status: Acute (5) Metabolic encephalopathy Code(s): G93.41 - METABOLIC ENCEPHALOPATHY Status: Acute (6) Diabetes mellitus type 2 in nonobese Code(s): E11.9 - TYPE 2 DIABETES MELLITUS WITHOUT COMPLICATIONS Status: Chronic - Plan * Hyponatremia ( profound) with metabolic encephalopathy- 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 Nephrology is managing- will add urine and serum osmols * Hypomagensemia- possibly from poor oral intake- will replace * DM- blood glucose is stable- continue SSI * HTN- blood pressure is elevated- will need to reconcile and re-start home medications
[2019-10-23 15:34] LABS: SARS-CoV-2 MS2 Positive; SARS-CoV-2 N Gene Negative; SARS-CoV-2 S Gene Negative; SARS-CoV-2 by NAA Not Detected (NotDetected); SARS-CoV-2 orf1ab Negative
--- NOTE | 2019-10-23 18:22 | CON ---
DATE OF CONSULTATION: REASON FOR CONSULTATION: Hyponatremia. TIME OF CONSULTATION: 10 a.m. HISTORY OF PRESENT ILLNESS: This is a 78-year-old gentleman, presented to the hospital with weakness and fall. The patient was noted to have altered mental status and a sodium of 108, so I was consulted. The patient was given normal saline and the sodium has stayed at 108. The patient denies any diarrhea, vomiting, or weight loss. The patient denies any diuretic use. PAST MEDICAL HISTORY: Significant for hypertension, anemia, diabetes mellitus. The patient has had cataract surgery. SOCIAL HISTORY: No alcohol or drug abuse. FAMILY HISTORY: Negative for ESRD. ALLERGIES: REVIEWED. HOME MEDICATIONS: List reviewed. HOSPITAL MEDICATIONS: List reviewed. REVIEW OF SYSTEMS: A 15-point review of system was performed, negative except for positives noted above. HEENT: Eyes intact, no diplopia. Ears: No hearing loss or earache. Nose: No discharge or bleeding. Chest: No cough or phlegm. Abdomen: No nausea or vomiting. Genitourinary: No hematuria. No Boyle catheter. Musculoskeletal: No low back pain. No joint swelling or pain. Neurological: No syncope. No seizures. Skin: No complaints of rash or itching. Psychiatric: No depression. Constitutional: No weight loss or loss of appetite. PHYSICAL EXAMINATION: GENERAL: The patient is awake and alert. VITAL SIGNS: Afebrile, pulse 85, breathing at 16, blood pressure 188/80. HEENT: Head normocephalic and atraumatic. Eyes intact, no ulcers. Nose intact, no ulcers. Ears intact, no ulcers. Neck: Supple. No JVD. Chest: Symmetrical and clear. Cardiovascular: Shows S1 and S2, no rub, no murmur. Gastrointestinal: Abdomen is soft, bowel sounds positive. Extremities: Show no edema or ulcers. Skin: Shows no rash or petechiae. Musculoskeletal: Shows no joint swelling or stiffness. Genitourinary: Shows no Boyle or CVA tenderness. Neurologic: Motor intact. Cranial nerves intact. LABORATORY DATA: Show sodium is 108. ASSESSMENT AND RECOMMENDATIONS: 1. Hyponatremia, most likely due to excessive fluid intake as well as syndrome of inappropriate antidiuretic hormone secretion. We would recommend fluid restriction. 2. Anemia, stable. 3. Microscopic hematuria. I would recommend Urology consultation and renal imaging. Medication based on GFR, appropriate. I would recommend checking sodium every 4 hours and admit the patient to ICU. Job ID: [id number]
[2019-10-23 18:56] LABS: Anion Gap 10 mmol/L (10-20); BUN (Urea Nitrogen) 6 mg/dL (8.4-25.7); Calc. Creatinine Clearance 119 mL/min (70-130); Calcium 8.2 mg/dL (7.8-10.44); Carbon Dioxide 21 mmol/L (23-31); Chloride 83 mmol/L (98-107); Estimated GFR-MDRD Greater than 90; Glucose 90 mg/dL (83-110)
[2019-10-23 19:00] LABS: Sodium 110 mmol/L (136-145)
[2019-10-24 00:53] LABS: Anion Gap 12 mmol/L (10-20); BUN (Urea Nitrogen) 6 mg/dL (8.4-25.7); Calc. Creatinine Clearance 111 mL/min (70-130); Calcium 8.5 mg/dL (7.8-10.44); Carbon Dioxide 19 mmol/L (23-31); Chloride 85 mmol/L (98-107); Estimated GFR-MDRD Greater than 90; Glucose 90 mg/dL (83-110); Potassium 4.1 mmol/L (3.5-5.1)
[2019-10-24 01:04] LABS: Sodium 112 mmol/L (136-145)
[2019-10-24 04:01] LABS: #Eosinphils 0.4 thou/uL (0.0-0.7); #Lymphocytes 1.2 thou/uL (1.20-3.40); #Monocytes 1.1 thou/uL (0.11-0.59); %Basophils 0.5 % (0.0-1.0); %Eosinophils 4.1 % (0.0-10.0); %Lymphocytes 13.8 % (21.0-51.0); %Neutrophils 68.5 % (42.0-75.0); Hemoglobin 15.4 g/dL (14.0-18.0); Mean Corpuscular HGB CONC 34.5 g/dL (32.0-36.0); Mean Corpuscular Hemoglobin 30.1 pg (27.0-31.0); Mean Corpuscular Volume 87.2 fL (78.0-98.0); Platelet Count 260 thou/uL (130-400); RBC Distribution Width 11.7 % (11.5-14.5); Red Blood Cell (RBC) Count 5.13 mill/uL (4.70-6.10); White Blood Cell (WBC) Count 8.7 thou/uL (4.8-10.8)
[2019-10-24 04:56] LABS: Magnesium 2.1 mg/dL (1.6-2.6); Phosphorus 3.2 mg/dL (2.3-4.7)
[2019-10-24] MEDS: cefTRIAXone\\ROCEPHIN 1 GM in Sodium Chloride 0.9% 100 ML IVPB SCH (05:14)
[2019-10-24] MEDS: Enoxaparin Sodium 40 MG/0.4 ML SYRINGE SC SCH (09:33)
[2019-10-24] MEDS: Polyethylene Glycol 3350 17 GM Packet PO SCH (09:35)
--- NOTE | 2019-10-24 11:11 | PDOC.HOSPP ---
- Subjective Encounter Date: 10/24/19 Encounter Time: 11:10 Subjective: Mr. Moore was seen today in follow-up of hyponatremia. He says he is beginning to feel better. He does not have any new complaints. - Objective Vital Signs & Weight: Vital Signs (12 hours) Temp 10/24/19 11:06 97.2 F L 10/24/19 07:19 97.6 F 10/24/19 03:55 97.4 F L 10/23/19 23:34 97.4 F L Weight Weight 171 lb 1 oz Most Recent Monitor Data Heart Rate from ECG 82 NIBP 132/74 NIBP BP-Mean 93 Respiration from ECG 15 SpO2 100 I&O: 10/23/19 10/24/19 10/25/19 06:59 06:59 06:59 Intake Total 100 Output Total 775 Balance -675 Result Diagrams: 10/24/19 03:26 10/24/19 00:26 Additional Labs: Accuchecks 10/24/19 10/24/19 10/23/19 10:44 05:34 21:04 POC Glucose 108 95 102 10/23/19 15:59 POC Glucose 100 Hospitalist ROS - Medication Medications: Active Medications Generic Name Dose Route Start Last Admin Trade Name Freq PRN Reason Stop Dose Admin Enoxaparin Sodium 40 mg 10/23/19 09:00 10/24/19 09:33 Lovenox SC 40 mg 0900 JAELYN Administration Hydralazine HCl 10 mg 10/23/19 03:24 10/23/19 19:07 Apresoline SLOW IVP 10 mg Q6H PRN Administration SBP GREATER THAN 160 Ceftriaxone Sodium 1 gm/ 100 mls @ 200 mls/hr 10/23/19 06:00 10/24/19 05:14 Sodium Chloride IVPB 100 mls 0600 JAELYN Administration Polyethylene Glycol 17 gm 10/23/19 09:00 10/24/19 09:35 Miralax PO Not Given DAILY JAELYN - Exam Eye: PERRL, anicteric sclera Heart: RRR, no murmur, no gallops, no rubs, normal peripheral pulses Respiratory: CTAB, no wheezes, no rales, no ronchi, normal chest expansion Gastrointestinal: soft, non-tender, non-distended, normal bowel sounds, no palpable masses Extremities: no cyanosis, 1+ LE edema (trace pedal edema in both lower extemities) Hosp A/P (1) Hyponatremia Code(s): E87.1 - HYPO-OSMOLALITY AND HYPONATREMIA Status: Acute (2) Dyslipidemia Code(s): E78.5 - HYPERLIPIDEMIA, UNSPECIFIED Status: Acute (3) Hypertension Code(s): I10 - ESSENTIAL (PRIMARY) HYPERTENSION Status: Acute (4) Hypomagnesemia Code(s): E83.42 - HYPOMAGNESEMIA Status: Acute (5) Metabolic encephalopathy Code(s): G93.41 - METABOLIC ENCEPHALOPATHY Status: Acute (6) Diabetes mellitus type 2 in nonobese Code(s): E11.9 - TYPE 2 DIABETES MELLITUS WITHOUT COMPLICATIONS Status: Chronic - Plan * Hyponatremia ( profound) with metabolic encephalopathy-urine osmololality was lower than expected for SIADH- continue as per Nephrology Serum sodium is improving * Hypomagensemia- possibly from poor oral intake- will replace * DM- blood glucose is stable- continue SSI * HTN- blood pressure is stable
[2019-10-24 12:17] LABS: Anion Gap 11 mmol/L (10-20); BUN (Urea Nitrogen) 7 mg/dL (8.4-25.7); Calc. Creatinine Clearance 92 mL/min (70-130); Calcium 8.7 mg/dL (7.8-10.44); Carbon Dioxide 23 mmol/L (23-31); Chloride 85 mmol/L (98-107); Estimated GFR-MDRD Greater than 90; Glucose 110 mg/dL (83-110); Potassium 3.8 mmol/L (3.5-5.1)
[2019-10-24 12:27] LABS: Sodium 115 mmol/L (136-145)
--- NOTE | 2019-10-24 15:18 | PRG ---
DATE OF SERVICE: 10/24/2019 SUBJECTIVE: A 78-year-old gentleman, being seen for hyponatremia. The patient denies any nausea, vomiting, or chest pain. OBJECTIVE: General: The patient is awake and alert. Vital Signs: Afebrile, pulse 75, breathing 16, blood pressure 122/62. HEENT: Head normocephalic and atraumatic. Eyes intact, no ulcers. Nose intact, no ulcers. Ears intact, no ulcers. Neck: Supple. No JVD. Chest: Symmetrical and clear. Cardiovascular: Shows S1 and S2, no rub, no murmur. Gastrointestinal: Abdomen is soft, bowel sounds positive. Extremities: Show no edema or ulcers. Skin: Shows no rash or petechiae. Musculoskeletal: Shows no joint swelling or stiffness. Genitourinary: Shows no Boyle or CVA tenderness. Neurologic: Motor intact. Cranial nerves intact. LABORATORY DATA: Sodium is 115. ASSESSMENT AND PLAN: 1. Hyponatremia due to syndrome of inappropriate antidiuretic hormone secretion, improved. We will recheck labs again today. We will give Samsca as needed. 2. Metabolic acidosis, improved. 3. Medication based on GFR appropriate. 4. No indication for hypertonic saline. Job ID: [id number]
[2019-10-24 17:31] LABS: Anion Gap 10 mmol/L (10-20); BUN (Urea Nitrogen) 8 mg/dL (8.4-25.7); Calc. Creatinine Clearance 90 mL/min (70-130); Calcium 8.7 mg/dL (7.8-10.44); Carbon Dioxide 23 mmol/L (23-31); Chloride 87 mmol/L (98-107); Estimated GFR-MDRD Greater than 90; Glucose 99 mg/dL (83-110); Potassium 4.2 mmol/L (3.5-5.1)
[2019-10-24 17:37] LABS: Sodium 116 mmol/L (136-145)
[2019-10-24] MEDS ORDERED: Tolvaptan 15 MG TAB PO SCH (19:15)
[2019-10-24 21:26] LABS: Anion Gap 10 mmol/L (10-20); BUN (Urea Nitrogen) 8 mg/dL (8.4-25.7); Calc. Creatinine Clearance 90 mL/min (70-130); Calcium 8.7 mg/dL (7.8-10.44); Carbon Dioxide 25 mmol/L (23-31); Chloride 87 mmol/L (98-107); Estimated GFR-MDRD Greater than 90; Glucose 99 mg/dL (83-110); Potassium 4.2 mmol/L (3.5-5.1)
[2019-10-24 21:29] LABS: Sodium 118 mmol/L (136-145)
[2019-10-25 04:03] LABS: #Basophils 0.1 thou/uL (0.0-0.2); #Eosinphils 0.4 thou/uL (0.0-0.7); #Lymphocytes 1.4 thou/uL (1.20-3.40); #Monocytes 0.9 thou/uL (0.11-0.59); #Neutrophils 5.2 thou/uL (1.40-6.50); %Basophils 1.2 % (0.0-1.0); %Eosinophils 4.5 % (0.0-10.0); %Lymphocytes 18.1 % (21.0-51.0); %Monocytes 11.5 % (0.0-10.0); %Neutrophils 64.6 % (42.0-75.0); Hemoglobin 15.2 g/dL (14.0-18.0); Mean Corpuscular HGB CONC 36.2 g/dL (32.0-36.0); Mean Corpuscular Hemoglobin 31.8 pg (27.0-31.0); Mean Corpuscular Volume 87.8 fL (78.0-98.0); Mean Platelet Volume 7.8 fL (7.4-10.4); Platelet Count 287 thou/uL (130-400); RBC Distribution Width 11.6 % (11.5-14.5); Red Blood Cell (RBC) Count 4.77 mill/uL (4.70-6.10)
[2019-10-25 04:40] LABS: Magnesium 2.1 mg/dL (1.6-2.6); Phosphorus 4.7 mg/dL (2.3-4.7)
[2019-10-25] MEDS: cefTRIAXone\\ROCEPHIN 1 GM in Sodium Chloride 0.9% 100 ML IVPB SCH (05:03)
[2019-10-25 07:37] LABS: Anion Gap 12 mmol/L (10-20); BUN (Urea Nitrogen) 10 mg/dL (8.4-25.7); Calc. Creatinine Clearance 83 mL/min (70-130); Calcium 8.7 mg/dL (7.8-10.44); Carbon Dioxide 23 mmol/L (23-31); Chloride 89 mmol/L (98-107); Estimated GFR-MDRD Greater than 90; Glucose 95 mg/dL (83-110); Potassium 4.2 mmol/L (3.5-5.1); Sodium 120 mmol/L (136-145)
[2019-10-25] MEDS: Polyethylene Glycol 3350 17 GM Packet PO SCH (09:26)
[2019-10-25] MEDS: Enoxaparin Sodium 40 MG/0.4 ML SYRINGE SC SCH (09:26)
--- NOTE | 2019-10-25 09:36 | PDOC.HOSPP ---
- Subjective Encounter Date: 10/25/19 Encounter Time: 09:34 Subjective: Mr. Moore was seen today in follow-up of hyponatremia. He is feeling fine. He does not have any new complaints. - Objective Vital Signs & Weight: Vital Signs (12 hours) Temp Resp Pulse Ox 10/25/19 07:49 98 10/25/19 07:13 97.3 F L 10/25/19 04:26 12 10/25/19 03:41 97.9 F 10/25/19 00:03 12 10/24/19 23:30 97.4 F L Weight Weight 171 lb Most Recent Monitor Data Heart Rate from ECG 93 NIBP 104/60 NIBP BP-Mean 74 Respiration from ECG 16 SpO2 97 I&O: 10/24/19 10/25/19 10/26/19 06:59 06:59 06:59 Intake Total 100 480 Output Total 775 400 Balance -675 80 Result Diagrams: 10/25/19 03:11 10/25/19 07:04 Additional Labs: Accuchecks 10/24/19 10/24/19 10/24/19 20:27 16:54 10:44 POC Glucose 111 H 113 H 108 Hospitalist ROS - Medication Medications: Active Medications Generic Name Dose Route Start Last Admin Trade Name Freq PRN Reason Stop Dose Admin Enoxaparin Sodium 40 mg 10/23/19 09:00 10/25/19 09:26 Lovenox SC 40 mg 0900 JAELYN Administration Hydralazine HCl 10 mg 10/23/19 03:24 10/23/19 19:07 Apresoline SLOW IVP 10 mg Q6H PRN Administration SBP GREATER THAN 160 Ceftriaxone Sodium 1 gm/ 100 mls @ 200 mls/hr 10/23/19 06:00 10/25/19 05:03 Sodium Chloride IVPB 100 mls 0600 JAELYN Administration Polyethylene Glycol 17 gm 10/23/19 09:00 10/25/19 09:26 Miralax PO 17 gm DAILY JAELYN Administration Sodium Chloride 10 ml 10/25/19 09:00 10/25/19 09:26 Flush - Normal Saline IVF 10 ml Q12HR JAELYN Administration - Exam Eye: PERRL, anicteric sclera Heart: RRR, no murmur, no gallops, no rubs, normal peripheral pulses Respiratory: CTAB, no wheezes, no rales, no ronchi, normal chest expansion, no tachypnea Gastrointestinal: soft, non-tender, non-distended, normal bowel sounds, no palpable masses, no hepatomegaly Extremities: no cyanosis, no edema Hosp A/P (1) Hyponatremia Code(s): E87.1 - HYPO-OSMOLALITY AND HYPONATREMIA Status: Acute (2) Dyslipidemia Code(s): E78.5 - HYPERLIPIDEMIA, UNSPECIFIED Status: Acute (3) Hypertension Code(s): I10 - ESSENTIAL (PRIMARY) HYPERTENSION Status: Acute (4) Hypomagnesemia Code(s): E83.42 - HYPOMAGNESEMIA Status: Acute (5) Metabolic encephalopathy Code(s): G93.41 - METABOLIC ENCEPHALOPATHY Status: Acute (6) Diabetes mellitus type 2 in nonobese Code(s): E11.9 - TYPE 2 DIABETES MELLITUS WITHOUT COMPLICATIONS Status: Chronic - Plan * Hyponatremia -sodium is improving_ Tolvaptan has been ordered * Hypomagensemia- possibly from poor oral intake- will replace * DM- blood glucose is stable- continue SSI * HTN- blood pressure is stable * Can resume PT today * Hopefully home in a few days
--- NOTE | 2019-10-25 13:32 | PRG ---
DATE OF SERVICE: 10/25/2019 SUBJECTIVE: Patient was seen and examined at bedside and overnight events noted. Patient denies any shortness of breath or chest pain or palpitation. No history of nausea or vomiting or diarrhea or fever or chills or cramps. OBJECTIVE: GENERAL: This is a well-built male in no apparent distress. VITAL SIGNS: Temperature 96.6. Heart rate 91. Respiratory rate 18. Blood pressure 107/67. HEENT: Atraumatic, normocephalic. Oral mucosa is moist NECK: Supple. CARDIOVASCULAR: S1, S2 heard. Rate and rhythm regular. RESPIRATORY: Clear to auscultation. GASTROINTESTINAL: Abdomen is soft. MUSCULOSKELETAL: No tenderness. No edema. DERMATOLOGIC: No skin rash. NEUROLOGIC: Alert and awake and oriented X3. No focal neurologic deficits. Moving all the extremities. PSYCHIATRIC: Mood and affect normal. LABORATORY DATA: Sodium 120, potassium is 4.2, BUN is 10, creatinine is 0.8. ASSESSMENT AND PLAN: 1. Hyponatremia, most likely secondary to syndrome of inappropriate anti-diuretic hormone, status was Samsca. Sodium level is much better. Continue on fluid restriction and monitor. We will recommend age-appropriate cancer screening to rule out any cancer etiology. 2. Metabolic acidosis. 3. Hypertension, stable. 4. Anemia. Continue fluid restriction and monitor sodium. Job ID: [id number]
[2019-10-26] MEDS: cefTRIAXone\\ROCEPHIN 1 GM in Sodium Chloride 0.9% 100 ML IVPB SCH (05:59)
--- NOTE | 2019-10-26 07:25 | PDOC.HOSPP ---
- Subjective Encounter Date: 10/26/19 Encounter Time: 11:11 Subjective: Mr. Moore was doing better this morning. He had no new complaints and no overnight events. He reports some muscle weakness in the lower extremities and he has trouble with ambulation. His appetite continues to be suppressed, and he reports no bowel movement for 3-4 days. Patient denies headache, dizziness, lightheadedness, nausea, vomiting, muscle cramps. - Objective Vital Signs & Weight: Vital Signs (12 hours) Temp Pulse Resp BP Pulse Ox 10/26/19 07:10 97.7 F 89 16 120/64 97 10/26/19 04:00 97.7 F 92 16 108/57 L 10/25/19 20:00 98.1 F 99 16 120/58 L 94 L Weight Weight 168 lb Most Recent Monitor Data Heart Rate from ECG 96 NIBP 107/63 NIBP BP-Mean 77 Respiration from ECG 16 SpO2 100 I&O: 10/25/19 10/26/19 10/27/19 06:59 06:59 06:59 Intake Total 480 500 Output Total 400 450 Balance 80 50 Result Diagrams: 10/25/19 03:11 10/26/19 08:09 Additional Labs: Accuchecks 10/26/19 10/25/19 10/25/19 06:17 21:17 16:50 POC Glucose 110 113 H 135 H 10/25/19 10/25/19 10:48 05:45 POC Glucose 128 H 104 Hospitalist ROS - Review of Systems Constitutional: denies: fever, chills Eyes: denies: pain, vision change ENT: denies: ear pain, nose congestion Respiratory: denies: cough, shortness of breath Cardiovascular: denies: chest pain, palpitations, light headedness Gastrointestinal: denies: nausea, vomiting, abdominal pain Genitourinary: denies: dysuria, frequency All other systems reviewed; all pertinent +/- noted in HPI/Subj - Medication Medications: Active Medications Generic Name Dose Route Start Last Admin Trade Name Freq PRN Reason Stop Dose Admin Enoxaparin Sodium 40 mg 10/23/19 09:00 10/25/19 09:26 Lovenox SC 40 mg 0900 JAELYN Administration Hydralazine HCl 10 mg 10/23/19 03:24 10/23/19 19:07 Apresoline SLOW IVP 10 mg Q6H PRN Administration SBP GREATER THAN 160 Ceftriaxone Sodium 1 gm/ 100 mls @ 200 mls/hr 10/23/19 06:00 10/26/19 05:59 Sodium Chloride IVPB 100 mls 0600 JAELYN Administration Polyethylene Glycol 17 gm 10/23/19 09:00 10/25/19 09:26 Miralax PO 17 gm DAILY JAELYN Administration Sodium Chloride 10 ml 10/25/19 09:00 10/25/19 22:48 Flush - Normal Saline IVF Not Given Q12HR JAELYN - Exam General Appearance: NAD, awake alert Eye: PERRL, anicteric sclera ENT: normocephalic atraumatic, moist mucosa Neck: supple, symmetric Heart: RRR, no murmur, no gallops, no rubs, normal peripheral pulses Respiratory: CTAB, no wheezes, no rales, no ronchi Gastrointestinal: soft, non-tender, non-distended Extremities: no cyanosis, no edema Skin: normal turgor Neurological: normal sensation to touch, no new deficit Musculoskeletal: normal tone, normal strength Psychiatric - other findings: improved mentation Hosp A/P (1) Hyponatremia Code(s): E87.1 - HYPO-OSMOLALITY AND HYPONATREMIA Status: Acute (2) Dyslipidemia Code(s): E78.5 - HYPERLIPIDEMIA, UNSPECIFIED Status: Acute (3) Hypertension Code(s): I10 - ESSENTIAL (PRIMARY) HYPERTENSION Status: Acute (4) Hypomagnesemia Code(s): E83.42 - HYPOMAGNESEMIA Status: Acute (5) Metabolic encephalopathy Code(s): G93.41 - METABOLIC ENCEPHALOPATHY Status: Acute (6) Diabetes mellitus type 2 in nonobese Code(s): E11.9 - TYPE 2 DIABETES MELLITUS WITHOUT COMPLICATIONS Status: Chronic - Plan * Hyponatremia -sodium is improving, Na = 124 on 10/25,_ * He was given a dose of Tolvaptan * Hypomagensemia- possibly from poor oral intake- will replace * DM- blood glucose is stable- continue SSI * HTN- blood pressure is stable * Can resume PT today * Hopefully home in a few days * * Patient seen and examined and discussed with Javier Bentley MS-3, and agree with his assessment. Mr. Moore is slowly improving. His major complaint is constipation and some weakness. His exam is unremarkable. He has Hyponatremia due to SIADH. His serum sodium has improved to124. Anticipate home in a few days.
[2019-10-26 08:47] LABS: Anion Gap 13 mmol/L (10-20); BUN (Urea Nitrogen) 15 mg/dL (8.4-25.7); Calc. Creatinine Clearance 78 mL/min (70-130); Calcium 9.1 mg/dL (7.8-10.44); Carbon Dioxide 24 mmol/L (23-31); Chloride 92 mmol/L (98-107); Estimated GFR-MDRD 88; Glucose 114 mg/dL (83-110); Potassium 4.6 mmol/L (3.5-5.1); Sodium 124 mmol/L (136-145)
[2019-10-26] MEDS: Enoxaparin Sodium 40 MG/0.4 ML SYRINGE SC SCH (09:23)
[2019-10-26] MEDS: Polyethylene Glycol 3350 17 GM Packet PO SCH (09:24)
--- NOTE | 2019-10-26 17:08 | PRG ---
DATE OF SERVICE: 10/26/2019 SUBJECTIVE: Patient was seen and examined at bedside and overnight events noted. Patient denies any shortness of breath or chest pain or palpitation. No history of nausea or vomiting or diarrhea or fever or chills or cramps. OBJECTIVE: GENERAL: This is a well-built male, in no apparent distress. VITAL SIGNS: Temperature 97.7. Heart Rate 89. Respiratory rate 16. Blood pressure 120/64. HEENT: Atraumatic, normocephalic. Oral mucosa is moist. NECK: Supple. CARDIOVASCULAR: S1, S2 heard. Rate and rhythm regular. RESPIRATORY: Clear to auscultation. GASTROINTESTINAL: Abdomen is soft. MUSCULOSKELETAL: No tenderness. No edema. DERMATOLOGIC: No skin rash. NEUROLOGIC: Alert and awake and oriented x3. No focal neurologic deficits. Moving all the extremities. PSYCHIATRIC: Mood and affect normal. LABORATORY DATA: Potassium 4.6, BUN is 15, creatinine 0.84, sodium is 124. ASSESSMENT AND PLAN: 1. Hyponatremia, better. Continue fluid restriction. 2. Metabolic acidosis. 3. Hypertension. 4. Anemia of chronic disease. Sodium is getting better. Continue on fluid restriction. Job ID: [id number]
--- NOTE | 2019-10-27 07:39 | PDOC.HOSPP ---
- Subjective Encounter Date: 10/27/19 Encounter Time: 07:00 Subjective: Mr. Moore was doing well this morning. He had no overnight events and no new complaints this morning. He reports no muscle weakness or cramps, and he continues to have trouble with ambulation. Per nurse, patient became minimally lightheaded when attempting to ambulate with PT yesterday. His appetite is improving. He still reports no bowel movement. We will continue to follow sodium, which was 124 on 10/25. Patient denies headache, dizziness, lightheadedness, nausea, vomiting this morning. - Objective Vital Signs & Weight: Vital Signs (12 hours) Temp Pulse Resp BP Pulse Ox 10/27/19 07:17 97.9 F 93 16 122/66 97 10/27/19 04:00 97.5 F L 90 18 142/71 H 97 10/27/19 00:35 97.2 F L 88 18 163/82 H 94 L 10/26/19 21:00 98.3 F 89 20 132/63 96 10/26/19 20:00 97 Weight Weight 170 lb 6 oz Most Recent Monitor Data Heart Rate from ECG 96 NIBP 107/63 NIBP BP-Mean 77 Respiration from ECG 16 SpO2 100 I&O: 10/26/19 10/27/19 10/28/19 06:59 06:59 06:59 Intake Total 500 600 Output Total 450 1175 Balance 50 -575 Result Diagrams: 10/25/19 03:11 10/27/19 08:27 Additional Labs: Accuchecks 10/27/19 10/26/19 10/26/19 06:19 20:39 16:36 POC Glucose 111 H 117 H 140 H 10/26/19 10:38 POC Glucose 101 Hospitalist ROS - Review of Systems Constitutional: denies: fever, chills, weakness Eyes: denies: pain, vision change ENT: denies: ear pain, nose pain, throat pain Respiratory: denies: cough, shortness of breath Cardiovascular: denies: chest pain, palpitations, light headedness Gastrointestinal: denies: nausea, vomiting, abdominal pain, diarrhea, constipation Genitourinary: denies: dysuria, frequency Skin: denies: rash, lesions Neurological: denies: weakness, numbness All other systems reviewed; all pertinent +/- noted in HPI/Subj - Medication Medications: Active Medications Generic Name Dose Route Start Last Admin Trade Name Freq PRN Reason Stop Dose Admin Enoxaparin Sodium 40 mg 10/23/19 09:00 10/26/19 09:23 Lovenox SC 40 mg 0900 JAELYN Administration Hydralazine HCl 10 mg 10/23/19 03:24 10/23/19 19:07 Apresoline SLOW IVP 10 mg Q6H PRN Administration SBP GREATER THAN 160 Polyethylene Glycol 17 gm 10/23/19 09:00 10/26/19 09:24 Miralax PO Not Given DAILY JAELYN Sodium Chloride 10 ml 10/25/19 09:00 10/26/19 21:11 Flush - Normal Saline IVF 10 ml Q12HR JAELYN Administration - Exam General Appearance: NAD, awake alert Eye: PERRL, anicteric sclera ENT: normocephalic atraumatic, moist mucosa Neck: supple, symmetric Heart: RRR, no murmur, no gallops, no rubs, normal peripheral pulses Respiratory: CTAB, no wheezes, no rales, no ronchi Gastrointestinal: soft, non-tender, non-distended Extremities: no cyanosis, no edema Skin: normal turgor, no lesions Neurological: normal sensation to touch, no weakness, no new deficit Musculoskeletal: normal tone, normal strength Psychiatric: normal behavior, A&O x 3 Hosp A/P (1) Hyponatremia Code(s): E87.1 - HYPO-OSMOLALITY AND HYPONATREMIA Status: Acute (2) Dyslipidemia Code(s): E78.5 - HYPERLIPIDEMIA, UNSPECIFIED Status: Acute (3) Hypertension Code(s): I10 - ESSENTIAL (PRIMARY) HYPERTENSION Status: Acute (4) Hypomagnesemia Code(s): E83.42 - HYPOMAGNESEMIA Status: Acute (5) Metabolic encephalopathy Code(s): G93.41 - METABOLIC ENCEPHALOPATHY Status: Acute (6) Diabetes mellitus type 2 in nonobese Code(s): E11.9 - TYPE 2 DIABETES MELLITUS WITHOUT COMPLICATIONS Status: Chronic - Plan * Hyponatremia -sodium is improving, Na =is 126 today * DM- blood glucose is stable- continue SSI * HTN- blood pressure is stable * He has been evaluated by PT and inpatient Rehab was recommended. Will see how he does today, and will place a Case management Consult for Rehab * * Patient seen and examined and discussed with Javier Bentley MS-3, and agree with his assessment. Mr. Moore is slowly improving. His exam is unchanged. Will see how he does with PT. And screen for Rehab and custodial.
[2019-10-27 09:06] LABS: Anion Gap 14 mmol/L (10-20); BUN (Urea Nitrogen) 18 mg/dL (8.4-25.7); Calc. Creatinine Clearance 78 mL/min (70-130); Calcium 8.9 mg/dL (7.8-10.44); Carbon Dioxide 24 mmol/L (23-31); Chloride 93 mmol/L (98-107); Estimated GFR-MDRD 87; Glucose 124 mg/dL (83-110); Potassium 4.7 mmol/L (3.5-5.1); Sodium 126 mmol/L (136-145)
[2019-10-27] MEDS: Bisacodyl 5 MG TAB PO PRN (09:48)
[2019-10-27] MEDS: Polyethylene Glycol 3350 17 GM Packet PO SCH (09:49)
[2019-10-27] MEDS: Enoxaparin Sodium 40 MG/0.4 ML SYRINGE SC SCH (09:49)
--- NOTE | 2019-10-27 11:36 | PRG ---
DATE OF SERVICE: 10/27/2019 SUBJECTIVE: Patient was seen and examined at bedside and overnight events noted. Patient denies any shortness of breath or chest pain or palpitation. No history of nausea or vomiting or diarrhea or fever or chills or cramps. OBJECTIVE: GENERAL: This is a well-built male, in no apparent distress. VITAL SIGNS: Temperature 97.9. Heart Rate 93. Respiratory rate 16. Blood pressure 122/66. HEENT: Atraumatic, normocephalic. Oral mucosa is moist. NECK: Supple. CARDIOVASCULAR: S1, S2 heard. Rate and rhythm regular. RESPIRATORY: Clear to auscultation. GASTROINTESTINAL: Abdomen is soft. MUSCULOSKELETAL: No tenderness. No edema. DERMATOLOGIC: No skin rash. NEUROLOGIC: Alert and awake and oriented x3. No focal neurologic deficits. Moving all the extremities. PSYCHIATRIC: Mood and affect normal. LABORATORY DATA: Sodium 126, potassium 4.7, BUN is 18, creatinine is 0.8. ASSESSMENT AND PLAN: 1. Hyponatremia, improving. Continue on fluid restriction and encourage p.o. intake. Encourage protein intake. 2. Metabolic acidosis. 3. Hypertension. 4. Anemia of chronic disease. Sodium level is improving. Renal function is stable. Continue on fluid restriction. Job ID: [id number]
--- NOTE | 2019-10-28 07:32 | PDOC.HOSPP ---
- Subjective Encounter Date: 10/28/19 Encounter Time: 07:52 Subjective: Mr. Moore was seen today in follow-up of hyponatremia. He had no overnight events and no new complaints this morning. During PT evaluation yesterday, he became lightheaded with standing suggesting orthostasis. Appetite is improving. We will continue to follow sodium, which was 126 on 10/26. Patient currently denies headache, dizziness, lightheadedness, nausea, vomit. - Objective Vital Signs & Weight: Vital Signs (12 hours) Temp Pulse Resp BP Pulse Ox 10/28/19 07:23 98.9 F 92 16 140/68 97 10/28/19 04:00 98.9 F 92 20 135/63 97 10/27/19 20:44 98.9 F 92 18 139/64 96 Weight Weight 164 lb 6.4 oz Most Recent Monitor Data Heart Rate from ECG 96 NIBP 107/63 NIBP BP-Mean 77 Respiration from ECG 16 SpO2 100 I&O: 10/27/19 10/28/19 10/29/19 06:59 06:59 06:59 Intake Total 600 840 Output Total 1175 900 Balance -575 -60 Result Diagrams: 10/25/19 03:11 10/28/19 08:17 Additional Labs: Accuchecks 10/28/19 10/27/19 10/27/19 05:59 20:46 16:20 POC Glucose 113 H 137 H 135 H 10/27/19 11:13 POC Glucose 124 H Hospitalist ROS - Review of Systems Constitutional: denies: fever, chills Eyes: denies: pain, vision change ENT: denies: ear pain, nose pain, throat pain Respiratory: denies: cough, shortness of breath Cardiovascular: reports: light headedness (with standing during PT evaluation). denies: chest pain, palpitations Gastrointestinal: denies: nausea, vomiting, abdominal pain, diarrhea Genitourinary: denies: dysuria, frequency Skin: denies: rash, lesions Neurological: denies: weakness, numbness, change in speech All other systems reviewed; all pertinent +/- noted in HPI/Subj - Medication Medications: Active Medications Generic Name Dose Route Start Last Admin Trade Name Freq PRN Reason Stop Dose Admin Bisacodyl 10 mg 10/23/19 03:26 08/05/20 09:48 Dulcolax PO 10 mg DAILYPRN PRN Administration Constipation Enoxaparin Sodium 40 mg 10/23/19 09:00 10/27/19 09:49 Lovenox SC 40 mg 0900 JAELYN Administration Hydralazine HCl 10 mg 10/23/19 03:24 10/23/19 19:07 Apresoline SLOW IVP 10 mg Q6H PRN Administration SBP GREATER THAN 160 Polyethylene Glycol 17 gm 10/23/19 09:00 10/27/19 09:49 Miralax PO Not Given DAILY JAELYN Sodium Chloride 10 ml 10/25/19 09:00 10/27/19 23:19 Flush - Normal Saline IVF Not Given Q12HR JAELYN - Exam General Appearance: NAD, awake alert Eye: PERRL, anicteric sclera ENT: normocephalic atraumatic, moist mucosa Neck: supple, symmetric Heart: RRR, no murmur, no gallops, no rubs, normal peripheral pulses Respiratory: CTAB, no wheezes, no rales, no ronchi Gastrointestinal: soft, non-tender, non-distended Extremities: no cyanosis, no edema Skin: normal turgor, no lesions Neurological: normal sensation to touch, no weakness, no new deficit Musculoskeletal: normal tone, normal strength Psychiatric: normal behavior, A&O x 3 Hosp A/P (1) Hyponatremia Code(s): E87.1 - HYPO-OSMOLALITY AND HYPONATREMIA Status: Acute (2) Dyslipidemia Code(s): E78.5 - HYPERLIPIDEMIA, UNSPECIFIED Status: Acute (3) Hypertension Code(s): I10 - ESSENTIAL (PRIMARY) HYPERTENSION Status: Acute (4) Hypomagnesemia Code(s): E83.42 - HYPOMAGNESEMIA Status: Acute (5) Metabolic encephalopathy Code(s): G93.41 - METABOLIC ENCEPHALOPATHY Status: Acute (6) Diabetes mellitus type 2 in nonobese Code(s): E11.9 - TYPE 2 DIABETES MELLITUS WITHOUT COMPLICATIONS Status: Chronic - Plan * Hyponatremia -sodium has stalled a bit at 125 * DM- blood glucose is stable- continue SSI * HTN- blood pressure is stable * He has been evaluated by PT and inpatient Rehab was recommended, he was orthostatic with PT yesterday, will place a Case management Consult for Rehab * * Patient seen and examined and discussed with Javier Bentley MS-3, and agree with his assessment. Mr. Moore is slowly improving. His exam is unchanged. His serum sodium has stalled a bit at 125- he may have a new set point or may benefit from a repeat dose of Tolvaptan. Will defer to Nephrology. He continues to be extremely weak, and feel he would benefit from a Rehab stay
[2019-10-28 09:10] LABS: Anion Gap 16 mmol/L (10-20); BUN (Urea Nitrogen) 20 mg/dL (8.4-25.7); Calc. Creatinine Clearance 69 mL/min (70-130); Carbon Dioxide 20 mmol/L (23-31); Chloride 94 mmol/L (98-107); Estimated GFR-MDRD 79; Glucose 154 mg/dL (83-110); Potassium 5.1 mmol/L (3.5-5.1); Sodium 125 mmol/L (136-145)
[2019-10-28] MEDS: Bisacodyl 5 MG TAB PO PRN (09:33)
[2019-10-28] MEDS: Polyethylene Glycol 3350 17 GM Packet PO SCH (09:33)
[2019-10-28] MEDS: Enoxaparin Sodium 40 MG/0.4 ML SYRINGE SC SCH (09:33)
--- NOTE | 2019-10-28 11:54 | PRG ---
DATE OF SERVICE: 10/28/2019 SUBJECTIVE: Patient was seen and examined at bedside and overnight events noted. Patient denies any shortness of breath or chest pain or palpitation. No history of nausea or vomiting or diarrhea or fever or chills or cramps. OBJECTIVE: GENERAL: This is a well-built male, in no apparent distress. VITAL SIGNS: Temperature 98.9. Heart rate 92. Respiratory rate 16. Blood pressure 140/60. HEENT: Atraumatic, normocephalic. Oral mucosa is moist. NECK: Supple. CARDIOVASCULAR: S1, S2 heard. Rate and rhythm regular. RESPIRATORY: Clear to auscultation. GASTROINTESTINAL: Abdomen is soft. MUSCULOSKELETAL: No tenderness. No edema. DERMATOLOGIC: No skin rash. NEUROLOGIC: Alert and awake and oriented x3. No focal neurologic deficits. Moving all the extremities. PSYCHIATRIC: Mood and affect normal. LABORATORY DATA: Potassium 5.1, BUN is 20, creatinine 0.9, and sodium 125. ASSESSMENT AND PLAN: 1. Hyponatremia. 2. Metabolic acidosis. 3. Hypertension. 4. Anemia of chronic disease. Continue fluid restriction. Monitor sodium. Job ID: [id number]
[2019-10-28] MEDS: Sodium Chloride 1 GM TAB PO SCH ×2 (12:23→17:02)
[2019-10-29 05:45] LABS: Anion Gap 13 mmol/L (10-20); BUN (Urea Nitrogen) 22 mg/dL (8.4-25.7); Calc. Creatinine Clearance 71 mL/min (70-130); Carbon Dioxide 23 mmol/L (23-31); Chloride 98 mmol/L (98-107); Estimated GFR-MDRD 82; Potassium 4.7 mmol/L (3.5-5.1); Sodium 129 mmol/L (136-145)
[2019-10-29 05:46] LABS: Calcium 8.8 mg/dL (7.8-10.44); Glucose 111 mg/dL (83-110)
--- NOTE | 2019-10-29 07:35 | PDOC.HOSPP ---
- Subjective Encounter Date: 10/29/19 Encounter Time: 09:12 Subjective: Mr. Moore was seen today in follow-up of hyponatremia. He had no overnight events and no new complaints this morning. He is slowly improving, and his sodium is 129 today. He complains of weakness and dizziness when sitting up with PT. His appetite is improving and he had a BM yesterday. Patient denies new onset headache, nausea, vomit, fevers, chills, palpitations. - Objective Vital Signs & Weight: Vital Signs (12 hours) Temp Pulse Resp BP BP Pulse Ox 10/29/19 04:44 96 89/55 L 10/29/19 04:40 99 F 96 18 121/66 96 10/29/19 04:10 99.2 F 93 18 142/80 H 97 10/29/19 00:15 98.8 F 99 16 108/66 94 L Weight Weight 164 lb 6.4 oz Most Recent Monitor Data Heart Rate from ECG 96 NIBP 107/63 NIBP BP-Mean 77 Respiration from ECG 16 SpO2 100 I&O: 10/28/19 10/29/19 10/30/19 06:59 06:59 06:59 Intake Total 840 400 Output Total 900 Balance -60 400 Result Diagrams: 10/25/19 03:11 10/29/19 05:17 Additional Labs: Accuchecks 10/29/19 10/28/19 10/28/19 04:14 19:37 16:58 POC Glucose 109 125 H 132 H 10/28/19 11:03 POC Glucose 120 H Hospitalist ROS - Review of Systems Constitutional: reports: weakness. denies: fever, chills Eyes: denies: pain, vision change ENT: denies: ear pain, nose pain, throat pain Respiratory: denies: cough, shortness of breath Cardiovascular: reports: light headedness (with sitting up). denies: chest pain , palpitations Gastrointestinal: denies: nausea, vomiting, abdominal pain, diarrhea, constipation Genitourinary: denies: dysuria, frequency Skin: denies: rash, lesions Neurological: denies: weakness, numbness, seizures All other systems reviewed; all pertinent +/- noted in HPI/Subj - Medication Medications: Active Medications Generic Name Dose Route Start Last Admin Trade Name Freq PRN Reason Stop Dose Admin Bisacodyl 10 mg 10/23/19 03:26 10/28/19 09:33 Dulcolax PO 10 mg DAILYPRN PRN Administration Constipation Enoxaparin Sodium 40 mg 10/23/19 09:00 10/28/19 09:33 Lovenox SC 40 mg 0900 JAELYN Administration Hydralazine HCl 10 mg 10/23/19 03:24 10/23/19 19:07 Apresoline SLOW IVP 10 mg Q6H PRN Administration SBP GREATER THAN 160 Polyethylene Glycol 17 gm 10/23/19 09:00 10/28/19 09:33 Miralax PO 17 gm DAILY JAELYN Administration Sodium Chloride 10 ml 10/25/19 09:00 10/28/19 19:51 Flush - Normal Saline IVF 10 ml Q12HR JAELYN Administration Sodium Chloride 2 gm 10/28/19 12:00 10/28/19 17:02 Sodium Chloride PO 2 gm TID-WM JAELYN Administration - Exam General Appearance: NAD, awake alert Eye: PERRL, anicteric sclera ENT: normocephalic atraumatic, moist mucosa Neck: supple, symmetric Heart: RRR, no murmur, no gallops, no rubs, normal peripheral pulses Respiratory: CTAB, no wheezes, no rales, no ronchi Gastrointestinal: soft, non-tender, non-distended Extremities: no cyanosis, no edema Skin: normal turgor, no lesions Neurological: normal sensation to touch, no weakness, no new deficit Musculoskeletal: normal tone, normal strength Psychiatric: normal behavior, A&O x 3 Hosp A/P (1) Hyponatremia Code(s): E87.1 - HYPO-OSMOLALITY AND HYPONATREMIA Status: Acute (2) Dyslipidemia Code(s): E78.5 - HYPERLIPIDEMIA, UNSPECIFIED Status: Acute (3) Hypertension Code(s): I10 - ESSENTIAL (PRIMARY) HYPERTENSION Status: Acute (4) Hypomagnesemia Code(s): E83.42 - HYPOMAGNESEMIA Status: Acute (5) Metabolic encephalopathy Code(s): G93.41 - METABOLIC ENCEPHALOPATHY Status: Acute (6) Diabetes mellitus type 2 in nonobese Code(s): E11.9 - TYPE 2 DIABETES MELLITUS WITHOUT COMPLICATIONS Status: Chronic - Plan * Hyponatremia -sodium improved today at 129, continue to follow sodium and restrict fluids, giving salt tabs * DM- blood glucose is stable- continue SSI * HTN- blood pressure is stable * He has been evaluated by PT and inpatient Rehab was recommended, he was orthostatic with PT yesterday, will place a Case management Consult for Rehab * * Patient seen and examined and discussed with Javier Bentley MS-3, and agree with his assessment. Mr. Moore is slowly improving. His exam is unchanged. His serum sodium has stalled a bit at 125- he may have a new set point or may benefit from a repeat dose of Tolvaptan. Will defer to Nephrology. He continues to be extremely weak, and feel he would benefit from a Rehab stay
[2019-10-29] MEDS: Sodium Chloride 1 GM TAB PO SCH ×3 (08:17→17:49)
[2019-10-29] MEDS: Polyethylene Glycol 3350 17 GM Packet PO SCH (08:18)
[2019-10-29] MEDS: Enoxaparin Sodium 40 MG/0.4 ML SYRINGE SC SCH (08:18)
--- NOTE | 2019-10-29 11:38 | PRG ---
DATE OF SERVICE: 10/29/2019 SUBJECTIVE: Patient was seen and examined at bedside and overnight events noted. Patient denies any shortness of breath or chest pain or palpitation. No history of nausea or vomiting or diarrhea or fever or chills or cramps. OBJECTIVE: GENERAL: This is a well-built male, in no apparent distress. VITAL SIGNS: Temperature 98.2. Pulse 80. HEENT: Atraumatic, normocephalic. Oral mucosa is moist. NECK: Supple. CARDIOVASCULAR: S1, S2 heard. Rate and rhythm regular. RESPIRATORY: Clear to auscultation. GASTROINTESTINAL: Abdomen is soft. MUSCULOSKELETAL: No tenderness. No edema. DERMATOLOGIC: No skin rash. NEUROLOGIC: Alert and awake and oriented x3. No focal neurologic deficits. Moving all the extremities. PSYCHIATRIC: Mood and affect normal. LABORATORY DATA: Sodium 129, potassium 4.7. Creatinine is 0.9. ASSESSMENT AND PLAN: 1. Hyponatremia, getting better. Continue on salt tablet. 2. Metabolic acidosis. 3. Hypertension. 4. Anemia of chronic disease. Sodium getting better. Continue on salt tablet as tolerated. Job ID: [id number]
[2019-10-30 06:08] LABS: Anion Gap 13 mmol/L (10-20); BUN (Urea Nitrogen) 19 mg/dL (8.4-25.7); Calc. Creatinine Clearance 74 mL/min (70-130); Calcium 8.7 mg/dL (7.8-10.44); Carbon Dioxide 23 mmol/L (23-31); Chloride 99 mmol/L (98-107); Estimated GFR-MDRD 87; Glucose 106 mg/dL (83-110); Potassium 4.4 mmol/L (3.5-5.1); Sodium 131 mmol/L (136-145)
[2019-10-30] MEDS: Sodium Chloride 1 GM TAB PO SCH ×3 (09:16→17:06)
[2019-10-30] MEDS: Enoxaparin Sodium 40 MG/0.4 ML SYRINGE SC SCH (09:16)
[2019-10-30] MEDS: Polyethylene Glycol 3350 17 GM Packet PO SCH (09:17)
--- NOTE | 2019-10-30 12:06 | PRG ---
DATE OF SERVICE: 10/30/2019 SUBJECTIVE: Patient was seen and examined at bedside and overnight events noted. Patient denies any shortness of breath or chest pain or palpitation. No history of nausea or vomiting or diarrhea or fever or chills or cramps. OBJECTIVE: GENERAL: This is a well-built male, in no apparent distress. VITAL SIGNS: Temperature 98.3. Heart rate 80. Respiratory rate 16. Blood pressure 146/74. HEENT: Atraumatic, normocephalic. Oral mucosa is moist NECK: Supple. CARDIOVASCULAR: S1, S2 heard. Rate and rhythm regular. RESPIRATORY: Clear to auscultation. GASTROINTESTINAL: Abdomen is soft. MUSCULOSKELETAL: No tenderness. No edema. DERMATOLOGIC: No skin rash. NEUROLOGIC: Alert and awake and oriented X3. No focal neurologic deficits. Moving all the extremities. PSYCHIATRIC: Mood and affect normal. LABORATORY DATA: Potassium 4.4, BUN is 19, creatinine 0.8, sodium is 131. ASSESSMENT AND PLAN: 1. Hyponatremia secondary to syndrome of inappropriate antidiuretic hormone secretion. Continue on salt tablets. Sodium level is getting better. 2. Metabolic acidosis, stable. 3. History of hypertension. 4. Anemia of chronic disease. Sodium level is getting better. Continue to limit fluid intake. We will have salt tablet while he stays inpatient. Continue to monitor sodium. Job ID: [id number]
--- NOTE | 2019-10-30 12:44 | PDOC.HOSPP ---
- Subjective Encounter Date: 10/30/19 Encounter Time: 11:00 Subjective: Patient states that he finished his breakfast this morning without any trouble. He did not had any bowel movement today but had a yesterday. And no other complaints. He seems to be mentally at his baseline. His sodium level is 131. - Objective Vital Signs & Weight: Vital Signs (12 hours) Temp Pulse Resp BP Pulse Ox 10/30/19 08:00 97 10/30/19 07:18 98.3 F 80 16 146/74 H 97 Weight Weight 164 lb 6.4 oz Most Recent Monitor Data Heart Rate from ECG 96 NIBP 107/63 NIBP BP-Mean 77 Respiration from ECG 16 SpO2 100 I&O: 10/29/19 10/30/19 10/31/19 06:59 06:59 06:59 Intake Total 400 1160 Output Total 900 Balance 400 260 Result Diagrams: 10/25/19 03:11 10/30/19 05:27 Additional Labs: Accuchecks 10/30/19 10/30/19 10/29/19 11:35 04:41 21:31 POC Glucose 101 97 122 H 10/29/19 16:43 POC Glucose 158 H Hospitalist ROS - Medication Medications: Active Medications Generic Name Dose Route Start Last Admin Trade Name Freq PRN Reason Stop Dose Admin Bisacodyl 10 mg 10/23/19 03:26 10/28/19 09:33 Dulcolax PO 10 mg DAILYPRN PRN Administration Constipation Enoxaparin Sodium 40 mg 10/23/19 09:00 10/30/19 09:16 Lovenox SC 40 mg 0900 JAELYN Administration Hydralazine HCl 10 mg 10/23/19 03:24 10/23/19 19:07 Apresoline SLOW IVP 10 mg Q6H PRN Administration SBP GREATER THAN 160 Polyethylene Glycol 17 gm 10/23/19 09:00 10/30/19 09:17 Miralax PO Not Given DAILY JAELYN Sodium Chloride 10 ml 10/25/19 09:00 10/30/19 09:17 Flush - Normal Saline IVF 10 ml Q12HR JAELYN Administration Sodium Chloride 2 gm 10/28/19 12:00 10/30/19 09:16 Sodium Chloride PO 2 gm TID-WM JAELYN Administration - Exam General Appearance: NAD, awake alert Eye: PERRL ENT: normocephalic atraumatic Neck: supple Heart: RRR Respiratory: CTAB, normal chest expansion Gastrointestinal: soft, normal bowel sounds Neurological: cranial nerve grossly intact, no focal deficits, no new deficit Psychiatric: A&O x 3 Hosp A/P - Plan (1) Hyponatremia -Secondary to syndrome of inappropriate antidiuretic hormone -Sodium on 131. * - follow sodium and restrict fluids, giving salt tabs (2) Dyslipidemia Code(s): E78.5 - HYPERLIPIDEMIA, UNSPECIFIED Status: Acute (3) Hypertension Code(s): I10 - ESSENTIAL (PRIMARY) HYPERTENSION Status: Acute (4) Hypomagnesemia Code(s): E83.42 - HYPOMAGNESEMIA Status: Acute (5) Metabolic encephalopathy Code(s): G93.41 - METABOLIC ENCEPHALOPATHY Status: Acute (6) Diabetes mellitus type 2 in nonobese Code(s): E11.9 - TYPE 2 DIABETES MELLITUS WITHOUT COMPLICATIONS Status: Chronic Anemia of chronic disease stable Metabolic acidosis * DM- blood glucose is stable- continue SSI--BG < 150 * * * HTN- blood pressure is stable * * He has been evaluated by PT and inpatient Rehab was recommended, he was orthostatic with PT yesterday, will place a Case management Consult for Rehab * * Rehab stay *
[2019-10-30] MEDS ORDERED: Sodium Chloride 0.9% 1,000 ML IV SCH (18:15)
[2019-10-30] MEDS ORDERED: Sodium Chloride 0.9% 500 ML IVPB SCH (18:15)
[2019-10-30 21:58] LABS: #Eosinphils 0.3 thou/uL (0.0-0.7); #Lymphocytes 1.4 thou/uL (1.20-3.40); #Monocytes 0.8 thou/uL (0.11-0.59); #Neutrophils 7.6 thou/uL (1.40-6.50); %Basophils 0.3 % (0.0-1.0); %Eosinophils 2.9 % (0.0-10.0); %Lymphocytes 13.6 % (21.0-51.0); %Monocytes 7.7 % (0.0-10.0); %Neutrophils 75.5 % (42.0-75.0); Hemoglobin 13.7 g/dL (14.0-18.0); Mean Corpuscular HGB CONC 33.6 g/dL (32.0-36.0); Mean Corpuscular Hemoglobin 30.9 pg (27.0-31.0); Mean Corpuscular Volume 92.1 fL (78.0-98.0); Mean Platelet Volume 6.3 fL (7.4-10.4); Platelet Count 340 thou/uL (130-400); RBC Distribution Width 11.5 % (11.5-14.5); Red Blood Cell (RBC) Count 4.43 mill/uL (4.70-6.10)
[2019-10-30 22:20] LABS: Anion Gap 13 mmol/L (10-20); BUN (Urea Nitrogen) 15 mg/dL (8.4-25.7); Calc. Creatinine Clearance 74 mL/min (70-130); Calcium 8.4 mg/dL (7.8-10.44); Carbon Dioxide 21 mmol/L (23-31); Chloride 101 mmol/L (98-107); Estimated GFR-MDRD 87; Glucose 122 mg/dL (83-110); Potassium 4.3 mmol/L (3.5-5.1); Sodium 131 mmol/L (136-145)
[2019-10-30] MEDS: Piperacillin/Tazobactam 3.375 GM in Sodium Chloride 0.9% 100 ML IVPB SCH (23:13)
[2019-10-30] MEDS: Vancomycin 1.5 GRAM/300 ML BAG 1.5 GM in Premix Bag 1 BAG IVPB SCH (23:13)
[2019-10-31] MEDS: Acetaminophen 325 MG TAB PO PRN (00:46)
[2019-10-31 05:27] LABS: #Basophils 0.1 thou/uL (0.0-0.2); #Eosinphils 0.2 thou/uL (0.0-0.7); #Lymphocytes 1.4 thou/uL (1.20-3.40); #Monocytes 1.1 thou/uL (0.11-0.59); #Neutrophils 8.1 thou/uL (1.40-6.50); %Basophils 0.5 % (0.0-1.0); %Eosinophils 2.2 % (0.0-10.0); %Lymphocytes 12.7 % (21.0-51.0); %Neutrophils 74.5 % (42.0-75.0); Mean Corpuscular HGB CONC 33.3 g/dL (32.0-36.0); Mean Corpuscular Hemoglobin 30.4 pg (27.0-31.0); Mean Corpuscular Volume 91.4 fL (78.0-98.0); Mean Platelet Volume 6.5 fL (7.4-10.4); Platelet Count 341 thou/uL (130-400); RBC Distribution Width 11.5 % (11.5-14.5); Red Blood Cell (RBC) Count 4.27 mill/uL (4.70-6.10); White Blood Cell (WBC) Count 10.9 thou/uL (4.8-10.8)
[2019-10-31 05:46] LABS: Anion Gap 13 mmol/L (10-20); BUN (Urea Nitrogen) 16 mg/dL (8.4-25.7); Calc. Creatinine Clearance 68 mL/min (70-130); Calcium 8.2 mg/dL (7.8-10.44); Carbon Dioxide 20 mmol/L (23-31); Chloride 102 mmol/L (98-107); Estimated GFR-MDRD 78; Glucose 97 mg/dL (83-110); Potassium 4.4 mmol/L (3.5-5.1); Sodium 131 mmol/L (136-145)
[2019-10-31] MEDS: Piperacillin/Tazobactam 3.375 GM in Sodium Chloride 0.9% 100 ML IVPB SCH ×3 (06:07→21:23)
[2019-10-31] MEDS: Sodium Chloride 1 GM TAB PO SCH ×3 (07:49→17:11)
[2019-10-31] MEDS: Enoxaparin Sodium 40 MG/0.4 ML SYRINGE SC SCH (07:50)
[2019-10-31] MEDS: Polyethylene Glycol 3350 17 GM Packet PO SCH (07:50)
[2019-10-31] MEDS ORDERED: Cosyntropin 250 MCG VIAL SLOW IVP SCH (10:15)
--- NOTE | 2019-10-31 10:19 | RAD ---
Chest one view HISTORY: Fever. COMPARISON: 10/23/2019. FINDINGS: Cardiac silhouette is magnified by projection. Pulmonary vasculature is unremarkable. Mediastinum is midline with aortic calcification. Pulmonary markings slightly increased due to shallo w inspiration. No lobar consolidation or evidence of pneumothorax. IMPRESSION : Atherosclerosis. No active cardiopulmonary abnormalities are otherwise demonstrated.
[2019-10-31 10:22] LABS: Bilirubin Negative (Negative); Blood, Urine Negative (Negative); Clarity Clear (Clear); Glucose, Urine (Dipstick) Negative (Negative); Ketone, Urine 15 mg/dL (Negative); Leukocyte Negative (Negative); Nitrite Negative (Negative); Protein, Urine (Dipstick) Trace mg/dL (Neg-Trace); Specific Gravity, Urine 1.025 (1.005-1.030); Urobilinogen 0.2 mg/dL (Less than 2)
[2019-10-31] MEDS ORDERED: Sodium Chloride 0.9% 1,000 ML IV SCH (12:00)
--- NOTE | 2019-10-31 13:32 | PRG ---
DATE OF SERVICE: 10/31/2019 SUBJECTIVE: Patient was seen and examined at bedside and overnight events noted. Patient denies any shortness of breath or chest pain or palpitation. No history of nausea or vomiting or diarrhea or fever or chills or cramps. OBJECTIVE: GENERAL: This is a well-built male, in no apparent distress. VITAL SIGNS: Temperature 98.3. Pulse 97. Respiratory rate 16. Blood pressure 110/62 HEENT: Atraumatic, normocephalic. Oral mucosa is moist. NECK: Supple. CARDIOVASCULAR: S1, S2 heard. Rate and rhythm regular. RESPIRATORY: Clear to auscultation. GASTROINTESTINAL: Abdomen is soft. MUSCULOSKELETAL: No tenderness. No edema. DERMATOLOGIC: No skin rash. NEUROLOGIC: Alert and awake and oriented x3. No focal neurologic deficits. Moving all the extremities. PSYCHIATRIC: Mood and affect normal. LABORATORY DATA: Potassium 4.4, BUN is 16, and creatinine 0.9. ASSESSMENT AND PLAN: 1. Hyponatremia, stable. 2. Syndrome of inappropriate antidiuretic hormone secretion. 3. Metabolic acidosis. 4. Hypertension. 5. Anemia of chronic disease. 6. Labs are stable. We will follow. Job ID: [id number]
--- NOTE | 2019-10-31 13:57 | PDOC.HOSPP ---
- Subjective Encounter Date: 10/31/19 Encounter Time: 09:40 Subjective: Patient had severe orthostatic hypotension until yesterday evening. He also had low urine output. We gave some bolus fluid as well as maintenance fluid. His urine output is improving. He also had a fever and mild leukocytosis. Chest x-ray and urine analysis quite unremarkable. This morning his orthostasis is negative. His blood pressure is improving. TSH and random cortisol's are unremarkable. Due to his symptomatic orthostatic hypotension, will make sure there is no adrenal insufficiency. Stim test ordered. Will follow through the result. Patient feels fine this morning. He denies any abdominal pain or shortness of breath. Nursing nearby. We discussed the care plan for today. - Objective Vital Signs & Weight: Vital Signs (12 hours) Temp Pulse Resp BP BP Pulse Ox 10/31/19 11:56 98.7 F 101 H 18 117/59 L 94 L 10/31/19 08:00 98.3 F 97 16 110/62 123/74 94 L 10/31/19 05:15 98.6 F 95 18 108/62 115/69 96 Weight Weight 164 lb 6.4 oz Most Recent Monitor Data Heart Rate from ECG 96 NIBP 107/63 NIBP BP-Mean 77 Respiration from ECG 16 SpO2 100 I&O: 10/30/19 10/31/19 11/01/19 06:59 06:59 06:59 Intake Total 1160 2490 Output Total 900 1100 Balance 260 1390 Result Diagrams: 10/31/19 05:13 10/31/19 05:13 Additional Labs: Accuchecks 10/31/19 10/30/19 10/30/19 11:38 21:52 15:37 POC Glucose 119 H 121 H 110 Hospitalist ROS - Medication Medications: Active Medications Generic Name Dose Route Start Last Admin Trade Name Freq PRN Reason Stop Dose Admin Acetaminophen 650 mg 10/23/19 03:24 10/31/19 00:46 Tylenol PO 650 mg Q4H PRN Administration Headache/Fever/Mild Pain (1-3) Bisacodyl 10 mg 10/23/19 03:26 10/28/19 09:33 Dulcolax PO 10 mg DAILYPRN PRN Administration Constipation Cosyntropin 250 mcg 10/31/19 10:15 10/31/19 11:15 Cortrosyn SLOW IVP 250 mcg WILLCALL JAELYN Administration Enoxaparin Sodium 40 mg 10/23/19 09:00 10/31/19 07:50 Lovenox SC 40 mg 0900 JAELYN Administration Hydralazine HCl 10 mg 10/23/19 03:24 10/23/19 19:07 Apresoline SLOW IVP 10 mg Q6H PRN Administration SBP GREATER THAN 160 Piperacillin Sod/Tazobactam 100 mls @ 200 mls/hr 10/30/19 22:00 10/31/19 13: 13 Sod 3.375 gm/ Sodium Chloride IVPB 100 mls Q8HR AJELYN Administration Vancomycin HCl 1.5 gm/ Device 300 mls @ 200 mls/hr 10/30/19 23:00 10/30/19 23 :13 IVPB 300 mls 2300 JAELYN Administration Sodium Chloride 1,000 mls @ 75 mls/hr 10/31/19 12:00 10/31/19 13:14 Normal Saline 0.9% IV 11/01/19 01:19 1,000 mls .[id number] JAELYN Administration Polyethylene Glycol 17 gm 10/23/19 09:00 10/31/19 07:50 Miralax PO Not Given DAILY JAELYN Sodium Chloride 10 ml 10/25/19 09:00 10/31/19 07:50 Flush - Normal Saline IVF Not Given Q12HR JAELYN Sodium Chloride 2 gm 10/28/19 12:00 10/31/19 11:27 Sodium Chloride PO 2 gm TID-WM JAELYN Administration - Exam General Appearance: NAD, awake alert Eye: PERRL ENT: normocephalic atraumatic Neck: supple Heart: RRR Respiratory: CTAB, normal chest expansion Gastrointestinal: soft, normal bowel sounds Neurological: no focal deficits Psychiatric: A&O x 3 Hosp A/P - Plan (1) 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 * - follow sodium and restrict fluids, giving salt tabs (2) Dyslipidemia Code(s): E78.5 - HYPERLIPIDEMIA, UNSPECIFIED Status: Acute (3) Hypertension Code(s): I10 - ESSENTIAL (PRIMARY) HYPERTENSION Status: Acute (4) Hypomagnesemia Code(s): E83.42 - HYPOMAGNESEMIA Status: Acute (5) Metabolic encephalopathy Code(s): G93.41 - METABOLIC ENCEPHALOPATHY Status: Acute (6) Diabetes mellitus type 2 in nonobese Code(s): E11.9 - TYPE 2 DIABETES MELLITUS WITHOUT COMPLICATIONS Status: Chronic Anemia of chronic disease stable Metabolic acidosis * DM- blood glucose is stable- continue SSI--BG < 150 * * * HTN- blood pressure is stable * * He has been evaluated by PT and inpatient Rehab was recommended, he was orthostatic with PT yesterday, will place a Case management Consult for Rehab * * Rehab stay * SIRS syndrome, fever and mild leukocytosis without any sign of infection Possibly dehydration triggering orthostasis -Improving -TSH and cortisol level in the normal range -Get stim test for completion of the work-up Fever and leukocytosis -Infectious work-up is negative including chest x-ray and urine analysis -Blood cultures negative so far -Remained negative x48 hours then will de-escalate the antibiotics Hypovolemic hyponatremia -Sodium improving will monitor we will continue with Colin IV fluid for maintenance in addition to p.o. intake. A.m. labs. Continue with PT OT.
--- NOTE | 2019-10-31 21:58 | PDOC.EVN ---
Event Note - Event Note Event Note: Nursing called. irregular heart rate. HR 110s, VS stable. Asymptomatic. Reviewed meds and labs. Ordered mag level. echo. transfer to tele. LMWH 1mg/kg, ANDRAE score 4, HASBLED score 1, low risk. Creatinine WNL.
[2019-10-31] MEDS ORDERED: Enoxaparin Sodium 80 MG/0.8 ML SYRINGE SC SCH (22:30)
[2019-11-01] MEDS: Vancomycin 1.5 GRAM/300 ML BAG 1.5 GM in Premix Bag 1 BAG IVPB SCH (00:03)
[2019-11-01 03:46] LABS: Anion Gap 12 mmol/L (10-20); BUN (Urea Nitrogen) 14 mg/dL (8.4-25.7); Calc. Creatinine Clearance 75 mL/min (70-130); Calcium 8.1 mg/dL (7.8-10.44); Carbon Dioxide 18 mmol/L (23-31); Chloride 105 mmol/L (98-107); Estimated GFR-MDRD 88; Glucose 113 mg/dL (83-110); Potassium 4.2 mmol/L (3.5-5.1); Sodium 131 mmol/L (136-145)
[2019-11-01] MEDS: Piperacillin/Tazobactam 3.375 GM in Sodium Chloride 0.9% 100 ML IVPB SCH (06:37)
[2019-11-01] MEDS ORDERED: Magnesium 2 GM/50 ML 2 GM in Premix Bag 1 BAG IVPB SCH (07:15)
[2019-11-01] MEDS: Sodium Chloride 1 GM TAB PO SCH ×3 (10:06→18:14)
[2019-11-01] MEDS: Polyethylene Glycol 3350 17 GM Packet PO SCH (10:07)
[2019-11-01] MEDS: Enoxaparin Sodium 40 MG/0.4 ML SYRINGE SC SCH (10:07)
[2019-11-01] MEDS ORDERED: Iopamidol 370 76% 100 ML VIAL ONE (11:15)
[2019-11-01] MEDS ORDERED: Apixaban 5 MG TAB PO SCH (11:30)
--- NOTE | 2019-11-01 12:17 | CON ---
DATE OF CONSULTATION: 11/01/2019 REASON FOR CONSULT: Management of new onset atrial fibrillation and probable adrenal insufficiency. HISTORY OF PRESENT ILLNESS: Mr. Xavier Moore is a 79-year-old gentleman with history of diabetes and hyperlipidemia, was admitted for confusion, hyponatremia, and orthostatic hypotension. Mr. Moore was his usual self as recent as 6 months ago. He works full-time as a superintendent construction on construction site. He can walk through his construction site without any difficulty. He is able to go shopping with his at [employer] and walk around [facility] about 2 to 3 times. He does not have any limitation. He started feeling not well on October 20, 2019. He told his he felt weak, really did not want to get out of bed. Then his weakness intensified for the next several days. Then on 10 p.m. on October 21, he was stumbling. He said his leg was unable to move. The severe inability to move and his weakness caused his son to take him to [place]. He was seen at the ER about 1 a.m. on October 23, 2019. At that time, he was found to be severely hyponatremic with sodium of 107. 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 The patient said he did drink fluid at home a little bit more than usual. He said he was thirsty. However, he did not say that he urinated any more. This interview was also taken place with his . His did not notice that he had any change in the fluid habit. The patient also denied nausea, vomiting, or diarrhea. The patient also denied excessive urination. Since the hospitalization, he was fluid restricted with provisional diagnosis of SIADH. Sodium did rise but not to normal level. However, the patient was hydrated with normal saline. Hydration of normal saline seemed to help a bit too with increasing his sodium level. There was one bout of atrial fibrillation that occurred yesterday in the last few hours and then he spontaneously went back to sinus rhythm. PAST MEDICAL HISTORY: 1. Paroxysmal atrial fibrillation. 2. Severe hyponatremia. 3. Type 2 diabetes. 4. Dyslipidemia. SOCIAL HISTORY: He stopped smoking over 34 years ago, have not smoked since then. He denies alcohol use. He denies illicit drug use. He is for 35 years. FAMILY HISTORY: His father of stomach cancer at age 51. His mother of stroke at age 60. He has 6 brothers and 4 sisters. He believes some of them have cardiac disease. However, he cannot recall what their diseases were. REVIEW OF SYSTEMS: GENERAL: He was weak and confused at admission. Since then , he has more energy and feels better. HEENT: There is no change in vision, hearing, or swallowing. PULMONARY: He does not complain of shortness of breath. CARDIAC: He does not complain of chest pains or palpitation. GI: He denies nausea, vomiting, diarrhea, or blood in stool. : He does not complain of difficulty in urination. MUSCULOSKELETAL: He does not have any complaints. INTEGUMENT: There are no complaints. NEUROLOGIC: There are no complaints of focal deficits or weaknesses. CURRENT MEDICATIONS: That have cardiac effect include 1. enoxaparin 40 mg subcu at bedtime for DVT prophylaxis. 2. He has p.r.n. medications for hypertension PHYSICAL EXAMINATION: Telemetry and also ECG was reviewed. He did have a bout of atrial fibrillation yesterday. Since then, he is in sinus rhythm with occasional PVC. VITAL SIGNS: Heart rate 91, blood pressure 119/57. GENERAL: He is alert and conversational, reclining comfortably in bed. However , he has some confusion about why he was admitted. He is still not clear about what happened that night. It required conversations the to bring out the details. HEENT: EOMI. Oropharynx is benign with moist mucosa. NECK: His JVP is about 8 cm with positive hepatojugular reflux. LUNGS: Good air movement bilaterally, however he has the minute breath sounds with slight crackle at the right base. CARDIAC: Regular rate and rhythm, normal S1, S2. There are no discerning murmurs, gallops no rubs. ABDOMEN: Soft, nontender. Positive bowel sounds. EXTREMITIES: Lower extremity without edema. Positive dorsalis pedis pulses bilaterally. His Is and Os for the last day is 2280 in and 980 out. He is positive 1300. CURRENT LABORATORY DATA: White cell count 10.5, hemoglobin 13, and platelets at 341. His chemistries show sodium 131, potassium 4.2, bicarb at 18, creatinine 0.84 and magnesium at 1.8. Cortrosyn stimulation test was done yesterday. His baseline cortisol level was 10.2. 250 mcg of cortrosyn was administered. At 30 minutes later, it increased to 18; at 1 hour, it increased to 19.4. So he has net increase at 9.4 mcg/dL. This is about half of what it should be, so he has moderate adrenal insufficiency. Echocardiogram was also reviewed at bedside. Echocardiogram was done today, November 01, 2019. 1. Normal left ventricular size. 2. LV EF about 60%. 3. There is trivial mitral regurgitation. 4. There is normal diastolic function. 5. There is normal RV size and function. 6. Both left and right atria are normal size. In conclusion, he has remarkably well-appearing heart for 79 year old. ASSESSMENT: This 79-year-old gentleman has paroxysmal atrial fibrillation, moderate adrenal insufficiency, and unclear or mixed causes of severe hyponatremia. At his age and diabetes, he will need to be anticoagulated for AFIB, especially in light that he has high normal function. He will also need to least have rate control. Since he is adrenally insufficient, he will need to be supplemented. However, his profound hyponatremia down to 107 needs to be more carefully investigated. He does have decreased breath sounds and a chest x-ray finding with infiltrate in the right lung base, so he needs to have a contrasted CT scan to make sure he does not have a lung mass such as small-cell lung cancer. Furthermore, diabetes insipidus will also need to be investigated. Please see the following for my recommendations. RECOMMENDATIONS: 1. Start Toprol-XL 25 mg daily, this is for rate control. 2. Start Eliquis at 5 mg b.i.d. He is good size and normal renal function, so should be able to handle that. 3. Start hydrocortisone 20 mg in the morning, 10 mg in the afternoon. 4. Start fludrocortisone 0.1 mg daily. 5. Please do CT of the chest with contrast to look for lung mass. 6. Decrease IV fluids to 50 mL/hour, but leave it running for least [address] scan to clear the contrast. 7. [address] and after IV fluid, please start lisinopril at 2.5 mg daily. Because he does have diabetes with atrial fibrillation, he can use an MIROSLAVA inhibitor for his condition. It has been a pleasure taking care of Mr. Moore. If any questions, please give me a call. Job ID: [id number] MTDD
[2019-11-01] MEDS: Sodium Chloride 0.9% 1,000 ML IV SCH (13:23)
--- NOTE | 2019-11-01 13:43 | PDOC.HOSPP ---
- Subjective Encounter Date: 11/01/19 Encounter Time: 09:40 Subjective: Patient is doing well this morning me in the monitor he is in sinus rhythm. Overnight events noted. He had a short course of A. fib requiring transfer to the [facility]. Started on Eliquis. Cortisol stim test shows evidence s of adrenal insufficiency. Patient used to smoke 35 years ago. No alcohol use. No recent weight loss or appetite change. No cough or hemoptysis. Clinically he does not seem to have any obvious risk factors for occult malignancy. However he presented with severe hyponatremia concerning for possible small cell lung cancer versus adenocarcinoma and/or diabetes insipidus. Discussed with Dr. Howe. - Objective Vital Signs & Weight: Vital Signs (12 hours) Temp Pulse Pulse Pulse Pulse Pulse BP 11/01/19 11:05 92 94 90 89 89 145/67 H 11/01/19 11:00 98.6 F 11/01/19 07:28 98.8 F 11/01/19 03:43 99.2 F BP BP BP BP Pulse Ox Pulse Ox Pulse Ox 11/01/19 11:05 112/66 131/60 138/67 144/68 H 100 100 100 11/01/19 11:00 11/01/19 07:28 11/01/19 03:43 Pulse Ox Pulse Ox 11/01/19 11:05 100 100 11/01/19 11:00 11/01/19 07:28 11/01/19 03:43 Weight Weight 164 lb 6.4 oz Most Recent Monitor Data Heart Rate from ECG 82 NIBP 137/66 NIBP BP-Mean 89 Respiration from ECG 16 SpO2 100 I&O: 10/31/19 11/01/19 11/02/19 06:59 06:59 06:59 Intake Total 2490 2280 Output Total 1100 980 Balance 1390 1300 Result Diagrams: 10/31/19 05:13 11/01/19 03:03 Additional Labs: Accuchecks 11/01/19 11/01/19 10/31/19 10:51 05:37 19:42 POC Glucose 113 H 107 150 H 10/31/19 16:10 POC Glucose 136 H Hospitalist ROS - Medication Medications: Active Medications Generic Name Dose Route Start Last Admin Trade Name Freq PRN Reason Stop Dose Admin Acetaminophen 650 mg 10/23/19 03:24 10/31/19 00:46 Tylenol PO 650 mg Q4H PRN Administration Headache/Fever/Mild Pain (1-3) Apixaban 5 mg 11/01/19 11:30 11/01/19 13:24 Eliquis PO 11/01/19 14:00 5 mg NOW JAELYN Administration Bisacodyl 10 mg 10/23/19 03:26 10/28/19 09:33 Dulcolax PO 10 mg DAILYPRN PRN Administration Constipation Cosyntropin 250 mcg 10/31/19 10:15 10/31/19 11:15 Cortrosyn SLOW IVP 250 mcg WILLCALL JAELYN Administration Hydralazine HCl 10 mg 10/23/19 03:24 10/23/19 19:07 Apresoline SLOW IVP 10 mg Q6H PRN Administration SBP GREATER THAN 160 Sodium Chloride 1,000 mls @ 50 mls/hr 11/01/19 11:30 11/01/19 13:23 Normal Saline 0.9% IV 1,000 mls .Q20H JAELYN Administration Metoprolol Succinate 25 mg 11/01/19 11:30 11/01/19 13:24 Toprol Xl PO 11/01/19 14:00 25 mg NOW JAELYN Administration Polyethylene Glycol 17 gm 10/23/19 09:00 11/01/19 10:07 Miralax PO 17 gm DAILY JAEYLN Administration Sodium Chloride 10 ml 10/25/19 09:00 11/01/19 10:08 Flush - Normal Saline IVF 10 ml Q12HR JAELYN Administration Sodium Chloride 2 gm 10/28/19 12:00 11/01/19 13:24 Sodium Chloride PO 2 gm TID-WM JAELYN Administration - Exam General Appearance: NAD, awake alert Eye: PERRL ENT: normocephalic atraumatic Neck: supple Heart: RRR Respiratory: CTAB, normal chest expansion Gastrointestinal: soft, normal bowel sounds Neurological: cranial nerve grossly intact, no focal deficits Psychiatric: A&O x 3 Hosp A/P - Plan (1) 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 * - follow sodium and restrict fluids, giving salt tabs (2) Dyslipidemia Code(s): E78.5 - HYPERLIPIDEMIA, UNSPECIFIED Status: Acute (3) Hypertension Code(s): I10 - ESSENTIAL (PRIMARY) HYPERTENSION Status: Acute (4) Hypomagnesemia Code(s): E83.42 - HYPOMAGNESEMIA Status: Acute (5) Metabolic encephalopathy Code(s): G93.41 - METABOLIC ENCEPHALOPATHY Status: Acute (6) Diabetes mellitus type 2 in nonobese Code(s): E11.9 - TYPE 2 DIABETES MELLITUS WITHOUT COMPLICATIONS Status: Chronic Anemia of chronic disease stable Metabolic acidosis * DM- blood glucose is stable- continue SSI--BG < 150 * * * HTN- blood pressure is stable * * He has been evaluated by PT and inpatient Rehab was recommended, he was orthostatic with PT yesterday, will place a Case management Consult for Rehab * * Rehab stay * SIRS syndrome, fever and mild leukocytosis without any sign of infection Possibly dehydration triggering orthostasis -Improving -TSH and cortisol level in the normal range -Get stim test for completion of the work-up Fever and leukocytosis -Infectious work-up is negative including chest x-ray and urine analysis -Blood cultures negative so far -Remained negative x48 hours then will de-escalate the antibiotics Hypovolemic hyponatremia -Sodium improving will monitor we will continue with Colin IV fluid for maintenance in addition to p.o. intake. A.m. labs. Continue with PT OT. 10th Possible adrenal insufficiency -Started on hydrocortisone as well as fludrocortisone per Dr. Howe. Patient used to smoke 35 years ago. No alcohol use. No recent weight loss or appetite change. No cough or hemoptysis. Clinically he does not seem to have any obvious risk factors for occult malignancy. However he presented with severe hyponatremia concerning for possible small cell lung cancer versus adenocarcinoma and/or diabetes insipidus. Discussed with Dr. Howe. -Follow-up on CT chest Plan to start him on lisinopril [address] Atrial fibrillation, new onset -Started on Toprol-XL for rate control and Eliquis 5 twice daily for anticoagulation. cr ok. echo showed nl EF, nl LVSF.
--- NOTE | 2019-11-01 13:57 | CT ---
CT Chest W Con History: Lung mass Comparison: Radiograph prior day Findings: Severe background emphysema. Scarring in the lung bases, greatest in the right lung base. W ithin the anterior right upper lobe axial image 24 is a 4 mm nodule. No suspicious pulmonary nodule. No pneumothorax. Trace right pleural effusion. No significant pericardial fluid. Limited evaluation of the upper abdomen is unremarkable. Mild atherosclerotic plaque of the aorta. Th oracic spine is intact. Sternum and manubrium are intact. No displaced rib fracture. Impression: 1. No suspicious lung mass. 2. Severe background emphysema. 3. Small right effusion and right lower lobe scarring. 4. 4 mm nodule left upper lobe for which an optional CT at 12 months can be performed.
[2019-11-01] MEDS ORDERED: Hydrocortisone 10 mg Tablet PO SCH (21:00)
[2019-11-01] MEDS: Apixaban 5 MG TAB PO SCH (21:10)
[2019-11-02 03:57] LABS: Anion Gap 10 mmol/L (10-20); BUN (Urea Nitrogen) 15 mg/dL (8.4-25.7); Calc. Creatinine Clearance 88 mL/min (70-130); Carbon Dioxide 20 mmol/L (23-31); Chloride 105 mmol/L (98-107); Estimated GFR-MDRD Greater than 90; Glucose 103 mg/dL (83-110); Potassium 4.5 mmol/L (3.5-5.1); Sodium 130 mmol/L (136-145)
[2019-11-02] MEDS: Sodium Chloride 0.9% 1,000 ML IV SCH (05:41)
--- NOTE | 2019-11-02 06:48 | EKG ---
Test Reason : STAT Blood Pressure : / mmHG Vent. Rate : 114 BPM Atrial Rate : 326 BPM P-R Int : 000 ms QRS Dur : 090 ms QT Int : 330 ms P-R-T Axes : 000 051 070 degrees QTc Int : 454 ms Atrial fibrillation with rapid ventricular response inferior/lateral ST elevation cannot R/O acute CA Abnormal ECG When compared with ECG of 22-OCT-2019 23:48, (Unconfirmed) Atrial fibrillation has replaced Sinus rhythm Confirmed by DR. Eduar MENON (3) on 11/02/2019 6:48:33 AM Referred By: JES Confirmed By:DR. Eduar MENON
--- NOTE | 2019-11-02 07:06 | EKG ---
Test Reason : Blood Pressure : / mmHG Vent. Rate : 091 BPM Atrial Rate : 091 BPM P-R Int : 154 ms QRS Dur : 100 ms QT Int : 374 ms P-R-T Axes : 042 050 061 degrees QTc Int : 460 ms Normal sinus rhythm Widespread ST elevation. Cannot r/o acute changes, possible pericarditis, or normal variant Confirmed by DR. Eduar MENON (3) on 11/02/2019 7:06:16 AM Referred By: WILBER Confirmed By:DR. Eduar MENON
[2019-11-02 08:12] LABS: #Basophils 0.1 thou/uL (0.0-0.2); #Eosinphils 0.4 thou/uL (0.0-0.7); #Lymphocytes 1.5 thou/uL (1.20-3.40); #Monocytes 0.5 thou/uL (0.11-0.59); #Neutrophils 4.8 thou/uL (1.40-6.50); %Basophils 0.7 % (0.0-1.0); %Eosinophils 5.5 % (0.0-10.0); %Lymphocytes 20.9 % (21.0-51.0); %Monocytes 6.5 % (0.0-10.0); %Neutrophils 66.4 % (42.0-75.0); Hemoglobin 11.2 g/dL (14.0-18.0); Mean Corpuscular HGB CONC 34.2 g/dL (32.0-36.0); Mean Corpuscular Hemoglobin 31.5 pg (27.0-31.0); Mean Corpuscular Volume 92.3 fL (78.0-98.0); Mean Platelet Volume 6.6 fL (7.4-10.4); Platelet Count 332 thou/uL (130-400); RBC Distribution Width 11.3 % (11.5-14.5); Red Blood Cell (RBC) Count 3.56 mill/uL (4.70-6.10); White Blood Cell (WBC) Count 7.2 thou/uL (4.8-10.8)
[2019-11-02 08:27] LABS: Anion Gap 12 mmol/L (10-20); BUN (Urea Nitrogen) 14 mg/dL (8.4-25.7); Calc. Creatinine Clearance 92 mL/min (70-130); Carbon Dioxide 18 mmol/L (23-31); Chloride 104 mmol/L (98-107); Estimated GFR-MDRD Greater than 90; Glucose 85 mg/dL (83-110); Sodium 130 mmol/L (136-145)
[2019-11-02] MEDS ORDERED: Hydrocortisone 10 mg Tablet PO SCH (09:00)
[2019-11-02] MEDS: Apixaban 5 MG TAB PO SCH ×2 (09:30→21:13)
[2019-11-02] MEDS: Sodium Chloride 1 GM TAB PO SCH ×3 (09:30→17:32)
[2019-11-02] MEDS: Polyethylene Glycol 3350 17 GM Packet PO SCH (09:31)
--- NOTE | 2019-11-02 09:31 | PRG ---
DATE OF SERVICE: 11/02/2019 SUBJECTIVE: Mr. Xavier Moore had a good day. He was able to participate with PT/OT. However, initially he did have drop in blood pressure by 20. The orthostatics was done last night and then his orthostatic hypotension has decreased. It should get better with continued supplementation of the adrenal insufficiency. CT scan was done. This morning he says he is feeling well, breathing easy, he does not have any complaints. REVIEW OF SYSTEMS: GENERAL: There is no fever, chills, or productive cough. HEENT: There is no change in vision, hearing, or swallowing. PULMONARY: He is breathing easy. CARDIAC: There is no palpitation, chest pain, or syncope. GI: There is no nausea, vomiting, or diarrhea. : He is able to urinate on his own. MUSCULOSKELETAL: There is no new joint or muscle pain. INTEGUMENT: There is no new skin breakdown. NEUROLOGIC: There are no new focal deficits or weaknesses. CURRENT MEDICATIONS: Include: 1. Apixaban 5 mg twice a day. 2. Fludrocortisone 0.1 mg daily. 3. Hydrocortisone 20 mg a.m. and 10 mg in the afternoon. 4. Toprol-XL 25 mg daily. Telemetry was reviewed. He is predominantly in sinus rhythm. However, there is some PAC and there are a few short beat runs of junctional rhythm, which can be interpreted as a short few beats of AFib. PHYSICAL EXAMINATION: VITAL SIGNS: His current vitals are heart rate 78, blood pressure 158/87. GENERAL: He is alert, conversational, sitting comfortably in bed. HEENT: Show EOMI. Oropharynx benign with moist mucosa. NECK: His JVP is about 8 cm. Negative hepatojugular reflux. PULMONARY: There is good air movement bilaterally. However, there is velcro inspiratory and expiratory crackles at bases. This will correspond to chronic lung disease. CARDIAC: Regular rate and rhythm with normal S1 and S2. There are no murmurs or gallops. No rubs noted. ABDOMEN: Soft, nontender. Positive bowel sounds. EXTREMITIES: Lower extremities without edema. Positive dorsalis pedis pulses bilaterally. LABORATORY VALUES: Show chemistry; sodium 130, potassium 4.5, bicarb 20, BUN 15 , creatinine 0.72. The EKG was done and reviewed. The EKG from yesterday, heart rate about 90, sinus rhythm, normal axis, it is essentially a normal EKG. CT scan was also done. It did not find any lung mass. However, it did find 4 mm nodule in the left upper chest and then also showed surprisingly severe background emphysema and then small right effusion and right lower lobe scarring. The emphysema in the right lung scarring with a surprise. ASSESSMENT: 79-year-old gentleman has paroxysmal atrial fibrillation. However, he is currently in sinus rhythm. Providing rate control, electrolyte control, his atrial fibrillation should not occur. If it recurs again, then we can think about amiodarone at that time. But right now, there is no need for antiarrhythmic or rather increasing beta-blockade would help. He also has hyponatremia. This is likely due to adrenal insufficiency and there is also some component of SIADH. We need to see if the current oral medication is well enough to keep his sodium in correct range. He is hypertensive. With diabetes, MIROSLAVA inhibitor is needed. He also has hyperlipidemia, so his statin needs to be restarted. He will need PT/OT and he will also need continued management of orthostatic blood pressure until he reached normal point where he could be safely discharged. If rehab is desired that will be good too. Please see the following for my recommendations. RECOMMENDATIONS: 1. Continue to do orthostatic blood pressure measurements daily. 2. Start lisinopril 2.5 mg daily, first dose now. The reason why I am starting a low dose because he does have orthostatic hypotension. 3. Decrease hydrocortisone to 10 mg in the morning, 5 mg in the afternoon. This is the lowest dose. 4. Please check urine sodium osmolality and potassium. 5. Please check serum BMP, osmolality, and magnesium. 6. Please restart aspirin 81 mg daily, please restart atorvastatin 80 mg p.o. at bedtime today. 7. Please start Protonix 40 mg p.o. daily for GI protection. It has been a pleasure taking care of Mr. Xavier Moore. If you have any questions, please give me a call. Job ID: [id number] MTDD
[2019-11-02] MEDS ORDERED: Lisinopril 2.5 MG TAB PO SCH (10:15)
[2019-11-02] MEDS: Fludrocortisone Acetate 0.1 MG TAB PO SCH (11:05)
--- NOTE | 2019-11-02 11:32 | PDOC.HOSPP ---
- Subjective Encounter Date: 11/02/19 Encounter Time: 11:00 Subjective: His blood pressure is improving. He does have adrenal insufficiency. On low- dose hydrocortisone. He is able to work with physical therapy yesterday and he did not had any dizzy spells. I talked to the piano case and bench assembler it appears that try to approach the MVP but days she is not able to pill. I will try myself today. Patient needs little inpatient strength training is here is quite debilitated with being hospitalization for over 10 days. - Objective Vital Signs & Weight: Vital Signs (12 hours) Temp Pulse 11/02/19 11:07 77 11/02/19 07:15 98.4 F 11/02/19 04:00 98.7 F 11/01/19 23:35 97.7 F Weight Weight 164 lb 6.4 oz Most Recent Monitor Data Heart Rate from ECG 79 NIBP 165/82 NIBP BP-Mean 109 Respiration from ECG 6 SpO2 100 I&O: 11/01/19 11/02/19 11/03/19 06:59 06:59 06:59 Intake Total 2280 600 Output Total 980 750 Balance 1300 -150 Result Diagrams: 11/02/19 07:57 11/02/19 07:57 Additional Labs: Accuchecks 11/02/19 11/01/19 11/01/19 05:47 20:20 17:12 POC Glucose 94 118 H 107 Hospitalist ROS - Medication Medications: Active Medications Generic Name Dose Route Start Last Admin Trade Name Freq PRN Reason Stop Dose Admin Acetaminophen 650 mg 10/23/19 03:24 10/31/19 00:46 Tylenol PO 650 mg Q4H PRN Administration Headache/Fever/Mild Pain (1-3) Apixaban 5 mg 11/01/19 21:00 11/02/19 09:30 Eliquis PO 5 mg BID JAELYN Administration Bisacodyl 10 mg 10/23/19 03:26 10/28/19 09:33 Dulcolax PO 10 mg DAILYPRN PRN Administration Constipation Cosyntropin 250 mcg 10/31/19 10:15 10/31/19 11:15 Cortrosyn SLOW IVP 250 mcg WILLCALL JAELYN Administration Fludrocortisone Acetate 0.1 mg 11/02/19 09:00 11/02/19 11:05 Florinef PO 0.1 mg DAILY JAELYN Administration Hydralazine HCl 10 mg 10/23/19 03:24 10/23/19 19:07 Apresoline SLOW IVP 10 mg Q6H PRN Administration SBP GREATER THAN 160 Lisinopril 2.5 mg 11/02/19 10:15 11/02/19 11:07 Zestril PO 11/02/19 13:00 2.5 mg NOW JAELYN Administration Metoprolol Succinate 25 mg 11/02/19 09:00 11/02/19 11:04 Toprol Xl PO 25 mg DAILY JAELYN Administration Polyethylene Glycol 17 gm 10/23/19 09:00 11/02/19 09:31 Miralax PO 17 gm DAILY JAELYN Administration Sodium Chloride 10 ml 10/25/19 09:00 11/02/19 09:31 Flush - Normal Saline IVF 10 ml Q12HR JAELYN Administration Sodium Chloride 2 gm 10/28/19 12:00 11/02/19 11:08 Sodium Chloride PO 2 gm TID-WM JAELYN Administration - Exam General Appearance: NAD, awake alert Eye: PERRL ENT: normocephalic atraumatic Neck: supple Heart: RRR Respiratory: CTAB, normal chest expansion Gastrointestinal: soft, normal bowel sounds Neurological: cranial nerve grossly intact, no focal deficits Psychiatric: A&O x 3 Hosp A/P - Plan (1) Hyponatremia -Secondary to syndrome of inappropriate antidiuretic hormone -Sodium on 131. * - follow sodium and restrict fluids, giving salt tabs (2) Dyslipidemia Code(s): E78.5 - HYPERLIPIDEMIA, UNSPECIFIED Status: Acute (3) Hypertension Code(s): I10 - ESSENTIAL (PRIMARY) HYPERTENSION Status: Acute (4) Hypomagnesemia Code(s): E83.42 - HYPOMAGNESEMIA Status: Acute (5) Metabolic encephalopathy Code(s): G93.41 - METABOLIC ENCEPHALOPATHY Status: Acute (6) Diabetes mellitus type 2 in nonobese Code(s): E11.9 - TYPE 2 DIABETES MELLITUS WITHOUT COMPLICATIONS Status: Chronic Anemia of chronic disease stable Metabolic acidosis * DM- blood glucose is stable- continue SSI--BG < 150 * * * HTN- blood pressure is stable * * He has been evaluated by PT and inpatient Rehab was recommended, he was orthostatic with PT yesterday, will place a Case management Consult for Rehab * * Rehab stay * SIRS syndrome, fever and mild leukocytosis without any sign of infection Possibly dehydration triggering orthostasis -Improving -TSH and cortisol level in the normal range -Get stim test for completion of the work-up Fever and leukocytosis -Infectious work-up is negative including chest x-ray and urine analysis -Blood cultures negative so far -Remained negative x48 hours then will de-escalate the antibiotics Hypovolemic hyponatremia -Sodium improving will monitor we will continue with Colin IV fluid for maintenance in addition to p.o. intake. A.m. labs. Continue with PT OT. 10th Possible adrenal insufficiency -Started on hydrocortisone as well as fludrocortisone per Dr. Howe. Patient used to smoke 35 years ago. No alcohol use. No recent weight loss or appetite change. No cough or hemoptysis. Clinically he does not seem to have any obvious risk factors for occult malignancy. However he presented with severe hyponatremia concerning for possible small cell lung cancer versus adenocarcinoma and/or diabetes insipidus. Discussed with Dr. Howe. -Follow-up on CT chest Plan to start him on lisinopril [address] Atrial fibrillation, new onset -Started on Toprol-XL for rate control and Eliquis 5 twice daily for anticoagulation. cr ok. echo showed nl EF, nl LVSF. 11th He does have adrenal insufficiency. On low-dose hydrocortisone. He is able to work with physical therapy yesterday and he did not had any dizzy spells. I talked to the piano case and bench assembler it appears that try to approach the MVP but days she is not able to pill. I will try myself today. Patient needs little inpatient strength training is here is quite debilitated with being hospitalization for over 10 days. Phone number to call [phone] EN BP His at [phone]
--- NOTE | 2019-11-02 11:53 | PDOC.EVN ---
Event Note - Event Note Event Note: Called again [facility] at [phone] prior number and did they gave me a different number to call, [phone]. I gave all my information as well as patient information and that they gave me patient ID number [id number]. They got my phone number and likely they may call me after they review the case. We will update the at [phone] after I receive any communication from the [facility].
[2019-11-02] MEDS ORDERED: Magnesium 2 GM/50 ML 2 GM in Premix Bag 1 BAG IVPB SCH (12:45)
[2019-11-02 14:40] LABS: Potassium, Urine 13.8 mmol/L
[2019-11-02 15:18] LABS: Anion Gap 9 mmol/L (10-20); BUN (Urea Nitrogen) 13 mg/dL (8.4-25.7); Calc. Creatinine Clearance 90 mL/min (70-130); Calcium 7.8 mg/dL (7.8-10.44); Carbon Dioxide 22 mmol/L (23-31); Chloride 103 mmol/L (98-107); Estimated GFR-MDRD Greater than 90; Glucose 96 mg/dL (83-110); Magnesium 2.5 mg/dL (1.6-2.6); Potassium 3.7 mmol/L (3.5-5.1); Sodium 130 mmol/L (136-145)
[2019-11-02] MEDS: Atorvastatin Calcium 40 MG TAB PO SCH (21:13)
[2019-11-02] MEDS: Hydrocortisone 10 mg Tablet PO SCH (21:13)
[2019-11-02] MEDS: hydrALAZINE 20 MG/ML VIAL SLOW IVP PRN (21:19)
[2019-11-03 05:12] LABS: Anion Gap 13 mmol/L (10-20); BUN (Urea Nitrogen) 11 mg/dL (8.4-25.7); Calc. Creatinine Clearance 101 mL/min (70-130); Carbon Dioxide 19 mmol/L (23-31); Chloride 106 mmol/L (98-107); Estimated GFR-MDRD Greater than 90; Glucose 92 mg/dL (83-110); Sodium 134 mmol/L (136-145)
[2019-11-03] MEDS ORDERED: hydrALAZINE 20 MG/ML VIAL SLOW IVP PRN (07:43)
[2019-11-03] MEDS: Polyethylene Glycol 3350 17 GM Packet PO SCH (07:57)
[2019-11-03] MEDS: Sodium Chloride 1 GM TAB PO SCH ×3 (07:57→16:59)
[2019-11-03] MEDS: Aspirin Chewable 81 MG TAB PO SCH (07:58)
[2019-11-03] MEDS: Hydrocortisone 10 mg Tablet PO SCH ×2 (07:58→21:47)
[2019-11-03] MEDS: Apixaban 5 MG TAB PO SCH ×2 (07:58→21:46)
[2019-11-03] MEDS: Fludrocortisone Acetate 0.1 MG TAB PO SCH (07:58)
[2019-11-03] MEDS ORDERED: Lisinopril 5 MG TAB PO SCH (09:00)
[2019-11-03] MEDS ORDERED: Lisinopril 2.5 MG TAB PO SCH ×2 (09:00)
[2019-11-03] MEDS ORDERED: Carvedilol 6.25 MG TAB PO SCH ×2 (09:15→21:00)
[2019-11-03] MEDS ORDERED: Lisinopril 10 MG TAB PO SCH (09:15)
--- NOTE | 2019-11-03 10:25 | PRG ---
DATE OF SERVICE: 11/03/2019 SERVICE: [facility] Failure Cardiology Consulting Service. SUBJECTIVE: Mr. Xavier Moore had an excellent day. He was transferred from [facility] down to the telemetry unit. He said he felt good, did not have any problems. He was able to sleep well last night. He did not notice any orthostatic hypotension. However, his systolic heart pressures have been steadily declining. REVIEW OF SYSTEMS: GENERAL: There is no fever, chills, or productive cough. HEENT: There is no change in vision, hearing, or swallowing. PULMONARY: He is breathing easy. There is no complaint. CARDIAC: There is no chest pain, palpitation, or syncope. GI: There is no nausea, vomiting, or diarrhea. : He is urinating well. MUSCULOSKELETAL: There is no joint pain or muscle pain. INTEGUMENT: There is no skin breakdown. NEUROLOGIC: There are no new focal deficits or weaknesses. PHYSICAL EXAMINATION: VITAL SIGNS: Heart rate 78, blood pressure 184/86. This is much higher than yesterday. HEENT: Show EOMI. Oropharynx is benign with moist mucosa. NECK: JVP is about 8 cm with positive hepatojugular reflux. LUNGS: Good air movement bilaterally, however, there is velcro like crackles on bilateral bases. The breath sounds are diminished in the bases. CARDIAC: Regular rate and rhythm with normal S1 and S2. There is no discernible murmur, gallops, or rubs. ABDOMEN: Soft, nontender. Positive bowel sounds. EXTREMITIES: Lower extremity has slight edema only at his feet but not much. Telemetry was also reviewed. It shows sinus rhythm with some PACs. There is no concerning arrhythmia. CURRENT MEDICATIONS: Consist of: 1. Albuterol as needed. 2. Apixaban 5 mg twice a day. 3. Aspirin 81 mg daily. 4. Atorvastatin 80 mg p.o. at bedtime. 5. Fludrocortisone 0.1 mg daily. 6. Hydrocortisone 10 mg in a.m., 5 mg in p.m. 7. Lisinopril has been increased to 5 mg p.o. b.i.d., which is fine. LABORATORY VALUES: From this morning, sodium 134, potassium 4, bicarb at 19, BUN 11, creatinine 0.66. His serum osmolality is 274 yesterday at 2:00 p.m. His urine osmolality yesterday was 494 with sodium 100 and potassium 13.8. ASSESSMENT: 79-year-old gentleman has paroxysmal atrial fibrillation that is currently in sinus rhythm. He has normal cardiac structure and function. His hyponatremia is likely due to adrenal insufficiency. With initiation of adrenal supplementation, his sodium has trended back to normal nicely. However, his blood pressure also came up significantly too, so this will need to be addressed. His adrenal supplementation will need to be titrated slowly over time. We may be able to decrease, but at this point it is at initiation and we really cannot. Please see the following for my recommendations. RECOMMENDATIONS: 1. Stop Toprol-XL. 2. Start carvedilol 6.25 mg twice a day, this will be need to be titrated up in the hospital but to reach at least 12.5 mg twice a day, possibly 25 mg bid to control the blood pressure and prevent atrial fibrillation from occurring. I agree with increasing lisinopril to 10 mg total daily for now, then we will need to titrate this up as needed. The target systolic blood pressure will be about 120. Right now, this is too high. 3. Use labetalol 10 mg IV q.4 hours p.r.n. if systolic blood pressure goes above 180. 4. We will not change on adrenal supplementation for now. If the trend still close to high, then we can cut back on adrenal supplementation tomorrow. Need to see at least 3 days to see how this settles out. It has been a pleasure taking care of Mr. Moore. If you have any questions, please give me a call. Job ID: [id number] MTDD
--- NOTE | 2019-11-03 11:31 | PDOC.HOSPP ---
- Subjective Encounter Date: 11/03/19 Encounter Time: 11:00 Subjective: Patient is doing well he has no acute complaints he has no dizziness while he is ambulating with walker. Therapy is physical therapist followed with him. I have not received any phone calls from the Medicaid for the appeal for rehab placement. His blood pressure is still elevated. - Objective Vital Signs & Weight: Vital Signs (12 hours) Temp Pulse Resp BP BP Pulse Ox 11/03/19 07:58 97.9 F 74 16 177/79 H 96 11/03/19 05:16 184/86 H 11/03/19 04:03 98.9 F 78 20 184/86 H 99 11/02/19 23:45 86 158/72 H Weight Weight 171 lb Most Recent Monitor Data Heart Rate from ECG 79 NIBP 157/73 NIBP BP-Mean 101 Respiration from ECG 9 SpO2 100 I&O: 11/02/19 11/03/19 11/04/19 06:59 06:59 06:59 Intake Total 600 480 Output Total 750 1700 Balance -150 -1220 Result Diagrams: 11/02/19 07:57 11/03/19 04:12 Additional Labs: Accuchecks 11/03/19 11/03/19 11/02/19 10:49 05:45 21:15 POC Glucose 97 84 94 11/02/19 11/02/19 17:35 11:01 POC Glucose 103 112 H Hospitalist ROS - Medication Medications: Active Medications Generic Name Dose Route Start Last Admin Trade Name Freq PRN Reason Stop Dose Admin Acetaminophen 650 mg 10/23/19 03:24 10/31/19 00:46 Tylenol PO 650 mg Q4H PRN Administration Headache/Fever/Mild Pain (1-3) Apixaban 5 mg 11/01/19 21:00 11/03/19 07:58 Eliquis PO 5 mg BID JAELYN Administration Aspirin 81 mg 11/03/19 09:00 11/03/19 07:58 Aspirin Chewable PO 81 mg DAILY JAELYN Administration Atorvastatin Calcium 80 mg 11/02/19 21:00 11/02/19 21:13 Lipitor PO 80 mg HS JAELYN Administration Bisacodyl 10 mg 10/23/19 03:26 10/28/19 09:33 Dulcolax PO 10 mg DAILYPRN PRN Administration Constipation Carvedilol 6.25 mg 11/03/19 09:15 11/03/19 09:59 Coreg PO 11/03/19 11:30 6.25 mg NOW JAELYN Administration Fludrocortisone Acetate 0.1 mg 11/02/19 09:00 11/03/19 07:58 Florinef PO 0.1 mg DAILY JAELYN Administration Hydrocortisone 10 mg 11/03/19 09:00 11/03/19 07:58 Cortef PO 10 mg QAM JAELYN Administration Hydrocortisone 5 mg 11/02/19 21:00 11/02/19 21:13 Cortef PO 5 mg QPM JAELYN Administration Lisinopril 10 mg 11/03/19 09:15 11/03/19 09:16 Zestril PO 11/03/19 11:30 Not Given NOW JAELYN Pantoprazole Sodium 40 mg 11/03/19 09:00 11/03/19 07:59 Protonix PO 40 mg DAILY JAELYN Administration Polyethylene Glycol 17 gm 10/23/19 09:00 11/03/19 07:57 Miralax PO 17 gm DAILY JAELYN Administration Sodium Chloride 10 ml 10/25/19 09:00 11/03/19 08:02 Flush - Normal Saline IVF 10 ml Q12HR JAELYN Administration Sodium Chloride 2 gm 10/28/19 12:00 11/03/19 07:57 Sodium Chloride PO 2 gm TID-WM JAELYN Administration - Exam General Appearance: NAD, awake alert Eye: PERRL ENT: normocephalic atraumatic Neck: supple Heart: RRR Respiratory: CTAB, normal percussion Gastrointestinal: soft, normal bowel sounds Neurological: cranial nerve grossly intact, no focal deficits Psychiatric: normal affect, normal behavior, A&O x 3 Hosp A/P - Plan (1) 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 * - follow sodium and restrict fluids, giving salt tabs (2) Dyslipidemia Code(s): E78.5 - HYPERLIPIDEMIA, UNSPECIFIED Status: Acute (3) Hypertension Code(s): I10 - ESSENTIAL (PRIMARY) HYPERTENSION Status: Acute (4) Hypomagnesemia Code(s): E83.42 - HYPOMAGNESEMIA Status: Acute (5) Metabolic encephalopathy Code(s): G93.41 - METABOLIC ENCEPHALOPATHY Status: Acute (6) Diabetes mellitus type 2 in nonobese Code(s): E11.9 - TYPE 2 DIABETES MELLITUS WITHOUT COMPLICATIONS Status: Chronic Anemia of chronic disease stable Metabolic acidosis * DM- blood glucose is stable- continue SSI--BG < 150 * * * HTN- blood pressure is stable * * He has been evaluated by PT and inpatient Rehab was recommended, he was orthostatic with PT yesterday, will place a Case management Consult for Rehab * * Rehab stay * SIRS syndrome, fever and mild leukocytosis without any sign of infection Possibly dehydration triggering orthostasis -Improving -TSH and cortisol level in the normal range -Get stim test for completion of the work-up Fever and leukocytosis -Infectious work-up is negative including chest x-ray and urine analysis -Blood cultures negative so far -Remained negative x48 hours then will de-escalate the antibiotics Hypovolemic hyponatremia -Sodium improving will monitor we will continue with Colin IV fluid for maintenance in addition to p.o. intake. A.m. labs. Continue with PT OT. 10th Possible adrenal insufficiency -Started on hydrocortisone as well as fludrocortisone per Dr. Howe. Patient used to smoke 35 years ago. No alcohol use. No recent weight loss or appetite change. No cough or hemoptysis. Clinically he does not seem to have any obvious risk factors for occult malignancy. However he presented with severe hyponatremia concerning for possible small cell lung cancer versus adenocarcinoma and/or diabetes insipidus. Discussed with Dr. Howe. -Follow-up on CT chest Plan to start him on lisinopril [address] Atrial fibrillation, new onset -Started on Toprol-XL for rate control and Eliquis 5 twice daily for anticoagulation. cr ok. echo showed nl EF, nl LVSF. 11th He does have adrenal insufficiency. On low-dose hydrocortisone. He is able to work with physical therapy yesterday and he did not had any dizzy spells. I talked to the caser it appears that try to approach the MVP but days she is not able to pill. I will try myself today. Patient needs little inpatient strength training is here is quite debilitated with being hospitalization for over 10 days. Phone number to call [phone] EN BP His at [phone] Called again [facility] at [phone] prior number and did they gave me a different number to call, . I gave all my information as well as patient information and that they gave me patient ID number [id number]. They got my phone number and likely they may call me after they review the case. We will update the at [phone] after I receive any communication from the [facility]. 12th i updated , medicaid gave me pt's ID number, [id number] [id number] and said they will call me back i updated his at [phone] Patient is doing well in my opinion we just have to titrate his blood pressure medication and today and tomorrow if it is reasonably acceptable then home health with physical therapy is a alternative choice as well. is more concerned about physical therapy visiting him at home and overall general failure with the COVID risk.
[2019-11-03] MEDS: Labetalol HCl 100 MG/20 ML VIAL SLOW IVP PRN (17:25)
[2019-11-03] MEDS: Atorvastatin Calcium 40 MG TAB PO SCH (21:46)
[2019-11-04 04:42] LABS: Anion Gap 10 mmol/L (10-20); BUN (Urea Nitrogen) 9 mg/dL (8.4-25.7); Calc. Creatinine Clearance 101 mL/min (70-130); Calcium 7.9 mg/dL (7.8-10.44); Carbon Dioxide 20 mmol/L (23-31); Chloride 107 mmol/L (98-107); Estimated GFR-MDRD Greater than 90; Glucose 108 mg/dL (83-110); Sodium 133 mmol/L (136-145)
[2019-11-04] MEDS ORDERED: Lisinopril 10 MG TAB PO SCH ×3 (09:00→21:00)
[2019-11-04] MEDS ORDERED: Carvedilol 6.25 MG TAB PO SCH (09:00)
[2019-11-04] MEDS: Sodium Chloride 1 GM TAB PO SCH ×3 (09:23→17:43)
[2019-11-04] MEDS: Apixaban 5 MG TAB PO SCH ×2 (09:23→22:07)
[2019-11-04] MEDS: Aspirin Chewable 81 MG TAB PO SCH (09:24)
[2019-11-04] MEDS: Hydrocortisone 10 mg Tablet PO SCH (09:25)
[2019-11-04] MEDS: Polyethylene Glycol 3350 17 GM Packet PO SCH (09:25)
[2019-11-04] MEDS: Fludrocortisone Acetate 0.1 MG TAB PO SCH (09:25)
--- NOTE | 2019-11-04 09:56 | PRG ---
DATE OF SERVICE: 11/04/2019 SUBJECTIVE: Mr. Xavier Moore had a good day. He was able to walk with Physical Therapy without problems. He did not feel dizzy at all. He said he feels good and back to his normal baseline. Upon questioning about high blood pressure, he does have high blood pressures at home. He says his systolic blood pressures are above 156 at home. He is worried about the big bill that he is going to get from this hospital stay. He states he is worried about the bill. He believes his worry is causing high blood pressure in the hospital. REVIEW OF SYSTEMS: GENERAL: There is no fever, chills, or productive cough. HEENT: There is no change in vision, hearing, or swallowing. PULMONARY: There is no shortness of breath. CARDIAC: There are no chest pain, palpitations, syncope. GI: He does not have nausea, vomiting, diarrhea. : He is able to urinate without difficulty. MUSCULOSKELETAL: There is no complaint of joint pains or muscle pains. INTEGUMENT: There is no skin breakdown. NEUROLOGIC: There are no new focal deficits or weaknesses. MEDICATION: His medications have cardiac effect include: 1. Apixaban 5 mg twice a day. 2. Aspirin 81 mg daily. 3. Atorvastatin 80 mg at bedtime. 4. Carvedilol 6.25 mg twice a day. 5. Fludrocortisone 0.1 mg daily. 6. Hydralazine 10 mg q.4 hours p.r.n. 7. Hydrocortisone 10 mg in a.m. and 5 mg p.m. 8. Labetalol 10 mg IV q.4 hours for blood pressure greater than 180. 9. Lisinopril 10 mg daily. PHYSICAL EXAMINATION: Telemetry was reviewed. He is in sinus rhythm with occasional PAC. There is no atrial fibrillation. There is no ventricular tachycardia. VITAL SIGNS: His heart rate 72, blood pressure 175/80. GENERAL: He is alert, conversational, sitting comfortably in bed. HEENT: Show EOMI. Oropharynx is benign with moist mucosa. NECK: JVP is about 8 cm with positive hepatojugular reflux. PULMONARY: There is good air movement bilaterally; however, he has velcro crackle at the right base. This is corresponding to likely emphysema. HEART: Normal rate and rhythm. Normal S1, S2. There is no murmur, gallops, or rubs. ABDOMEN: Soft, nontender. Positive bowel sounds. EXTREMITIES: Lower extremities have slight edema around feet, but none above that. LABORATORY VALUES: Sodium 133, potassium 4, chloride 107, bicarb 20, BUN 9, creatinine 0.65. ASSESSMENT: 79-year-old has paroxysmal atrial fibrillation; howeer, his heart now resides with sinus rhythm. He also has hyponatremia due to most likely adrenal insufficiency. Right now, his sodium is about 133, which is sufficient. We need to see to make sure this stays above 130 on consistent basis. He also has [id number] hypertension. Since his adrenal insufficiency has corrected, now his baseline hypertension has returned. We will need to more aggressively address this. Once this hypertension is under better control and sodium remains stable, then he can be discharged. Please see the following for my recommendations. 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 This means he does not have active heart failure but has propensity for heart failure due to hypertension and diabetes. He actually had a quite normal heart. RECOMMENDATIONS: 1. Increase carvedilol to 12.5 mg twice a day, first dose now. I suspect he will need 25 mg twice a day. 2. Increase lisinopril to 10 mg twice a day. He may need 20 mg twice a day tomorrow. 3. Once his systolic blood pressure gets below 140 and stable sodium, then he can go home. 4. Please do PT, OT to help the patient to normalize. If he goes home, he will need close weekly followup to titrate his blood pressure medications. It has been a pleasure taking care of Mr. Xavier Moore. If you have any questions, please give me a call. Job ID: [id number] MTDD
--- NOTE | 2019-11-04 13:10 | PDOC.HOSPP ---
- Subjective Encounter Date: 11/04/19 Encounter Time: 09:50 Subjective: And is lying in the bed comfortable. I discussed his case with Dr. Howe. He still has orthostasis, his blood pressure systolic in 1 50-1 80 range currently. He continued to get low-dose hydrocortisone. Started on lisinopril 10 twice a day which can be titrated up to 20 twice a day and Coreg also started. Need to optimize his blood pressure medications prior to disposition. - Objective Vital Signs & Weight: Vital Signs (12 hours) Temp Pulse Resp BP BP BP BP 11/04/19 11:00 97.5 F L 72 14 188/77 H 11/04/19 09:32 151/55 H 153/70 H 180/78 H 11/04/19 07:54 97.9 F 77 12 186/89 H 11/04/19 04:49 98.4 F 72 18 175/80 H Pulse Ox 11/04/19 11:00 97 11/04/19 09:32 11/04/19 07:54 97 11/04/19 04:49 100 Weight Admit Weight 176 lb Weight 172 lb 11.2 oz Most Recent Monitor Data Heart Rate from ECG 79 NIBP 157/73 NIBP BP-Mean 101 Respiration from ECG 9 SpO2 100 I&O: 11/03/19 11/04/19 11/05/19 06:59 06:59 06:59 Intake Total 480 800 Output Total 1700 2350 Balance -1220 -1550 Result Diagrams: 11/02/19 07:57 11/04/19 03:52 Additional Labs: Accuchecks 11/04/19 11/04/19 11/03/19 10:52 05:49 20:47 POC Glucose 111 H 102 169 H 11/03/19 17:18 POC Glucose 120 H Hospitalist ROS - Medication Medications: Active Medications Generic Name Dose Route Start Last Admin Trade Name Freq PRN Reason Stop Dose Admin Acetaminophen 650 mg 10/23/19 03:24 10/31/19 00:46 Tylenol PO 650 mg Q4H PRN Administration Headache/Fever/Mild Pain (1-3) Apixaban 5 mg 11/01/19 21:00 11/04/19 09:23 Eliquis PO 5 mg BID JAELYN Administration Aspirin 81 mg 11/03/19 09:00 11/04/19 09:24 Aspirin Chewable PO 81 mg DAILY JAELYN Administration Atorvastatin Calcium 80 mg 11/02/19 21:00 11/03/19 21:46 Lipitor PO 80 mg HS JAELYN Administration Bisacodyl 10 mg 10/23/19 03:26 10/28/19 09:33 Dulcolax PO 10 mg DAILYPRN PRN Administration Constipation Carvedilol 12.5 mg 11/04/19 09:00 11/04/19 09:24 Coreg PO 12.5 mg Q12HR JAELYN Administration Fludrocortisone Acetate 0.1 mg 11/02/19 09:00 11/04/19 09:25 Florinef PO 0.1 mg DAILY JAELYN Administration Hydrocortisone 10 mg 11/03/19 09:00 11/04/19 09:25 Cortef PO 10 mg QAM JAELYN Administration Hydrocortisone 5 mg 11/02/19 21:00 11/03/19 21:47 Cortef PO 5 mg QPM JAELYN Administration Labetalol HCl 10 mg 11/03/19 09:08 11/03/19 17:25 Normodyne SLOW IVP 10 mg Q4H PRN Administration SBP>180 Pantoprazole Sodium 40 mg 11/03/19 09:00 11/04/19 09:25 Protonix PO 40 mg DAILY JAELYN Administration Polyethylene Glycol 17 gm 10/23/19 09:00 11/04/19 09:25 Miralax PO Not Given DAILY JAELYN Sodium Chloride 10 ml 10/25/19 09:00 11/04/19 09:25 Flush - Normal Saline IVF 10 ml Q12HR JAELYN Administration Sodium Chloride 2 gm 10/28/19 12:00 11/04/19 12:23 Sodium Chloride PO 2 gm TID-WM JAELYN Administration - Exam General Appearance: NAD, awake alert Eye: PERRL ENT: normocephalic atraumatic Neck: supple Heart: RRR Respiratory: CTAB Gastrointestinal: soft, normal bowel sounds Neurological: no new deficit Psychiatric: A&O x 3 Hosp A/P - Plan (1) 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 * - follow sodium and restrict fluids, giving salt tabs (2) Dyslipidemia Code(s): E78.5 - HYPERLIPIDEMIA, UNSPECIFIED Status: Acute (3) Hypertension Code(s): I10 - ESSENTIAL (PRIMARY) HYPERTENSION Status: Acute (4) Hypomagnesemia Code(s): E83.42 - HYPOMAGNESEMIA Status: Acute (5) Metabolic encephalopathy Code(s): G93.41 - METABOLIC ENCEPHALOPATHY Status: Acute (6) Diabetes mellitus type 2 in nonobese Code(s): E11.9 - TYPE 2 DIABETES MELLITUS WITHOUT COMPLICATIONS Status: Chronic Anemia of chronic disease stable Metabolic acidosis * DM- blood glucose is stable- continue SSI--BG < 150 * * * HTN- blood pressure is stable * * He has been evaluated by PT and inpatient Rehab was recommended, he was orthostatic with PT yesterday, will place a Case management Consult for Rehab * * Rehab stay * SIRS syndrome, fever and mild leukocytosis without any sign of infection Possibly dehydration triggering orthostasis -Improving -TSH and cortisol level in the normal range -Get stim test for completion of the work-up Fever and leukocytosis -Infectious work-up is negative including chest x-ray and urine analysis -Blood cultures negative so far -Remained negative x48 hours then will de-escalate the antibiotics Hypovolemic hyponatremia -Sodium improving will monitor we will continue with Colin IV fluid for maintenance in addition to p.o. intake. A.m. labs. Continue with PT OT. 10th Possible adrenal insufficiency -Started on hydrocortisone as well as fludrocortisone per Dr. Howe. Patient used to smoke 35 years ago. No alcohol use. No recent weight loss or appetite change. No cough or hemoptysis. Clinically he does not seem to have any obvious risk factors for occult malignancy. However he presented with severe hyponatremia concerning for possible small cell lung cancer versus adenocarcinoma and/or diabetes insipidus. Discussed with Dr. Howe. -Follow-up on CT chest Plan to start him on lisinopril [address] Atrial fibrillation, new onset -Started on Toprol-XL for rate control and Eliquis 5 twice daily for anticoagulation. cr ok. echo showed nl EF, nl LVSF. 11th He does have adrenal insufficiency. On low-dose hydrocortisone. He is able to work with physical therapy yesterday and he did not had any dizzy spells. I talked to the case management social worker it appears that try to approach the MVP but days she is not able to pill. I will try myself today. Patient needs little inpatient strength training is here is quite debilitated with being hospitalization for over 10 days. Phone number to call [phone] EN BP His at [phone] Called again [facility] at [phone] prior number and did they gave me a different number to call, . I gave all my information as well as patient information and that they gave me patient ID number [id number]. They got my phone number and likely they may call me after they review the case. We will update the at [phone] after I receive any communication from the [facility]. 12th i updated , medicaid gave me pt's ID number, [id number] [id number] and said they will call me back i updated his at [phone] Patient is doing well in my opinion we just have to titrate his blood pressure medication and today and tomorrow if it is reasonably acceptable then home health with physical therapy is a alternative choice as well. is more concerned about physical therapy visiting him at home and overall general failure with the COVID risk. 13th Suboptimally controlled blood pressure -Seems his blood pressure is trending up despite on medications -Blood pressure medications being titrated up. -Reduce the hydrocortisone dose to a lower level. He definitely has adrenal insufficiency as evidenced by the lab work, and even with his high blood pressure, he is orthostasis suggestive of autonomic dysfunction may be coexisting? Currently he is asymptomatic with physical therapy and using the walker for ambulation. -We will try to optimize his blood pressure medications. He may need to come off hydrocortisone in a very short. He needs to follow-up with his primary care physician as we send him home with a low-dose hydrocortisone as well as fluid fludrocortisone.
[2019-11-04] MEDS: Labetalol HCl 100 MG/20 ML VIAL SLOW IVP PRN (14:34)
[2019-11-04] MEDS ORDERED: Hydrocortisone 10 mg Tablet PO SCH ×2 (15:52)
--- NOTE | 2019-11-04 16:52 | EKG ---
Test Reason : Blood Pressure : / mmHG Vent. Rate : 093 BPM Atrial Rate : 093 BPM P-R Int : 148 ms QRS Dur : 090 ms QT Int : 370 ms P-R-T Axes : 044 049 066 degrees QTc Int : 460 ms Normal sinus rhythm Normal ECG Confirmed by COLIN CANTU ([id number]), news assignment editor PAULO LINO ([id number]) on 11/04/2019 4:50:40 PM Referred By: Confirmed By:COLIN Saez
[2019-11-04] MEDS ORDERED: hydrALAZINE 25 MG TAB PO SCH (21:00)
[2019-11-04] MEDS: Atorvastatin Calcium 40 MG TAB PO SCH (22:07)
[2019-11-04] MEDS: Carvedilol 6.25 MG TAB PO SCH (22:07)
[2019-11-04] MEDS: Lisinopril 10 MG TAB PO SCH (22:08)
[2019-11-05 07:20] LABS: #Eosinphils 0.4 thou/uL (0.0-0.7); #Lymphocytes 1.8 thou/uL (1.20-3.40); #Monocytes 0.6 thou/uL (0.11-0.59); #Neutrophils 5.4 thou/uL (1.40-6.50); %Basophils 0.5 % (0.0-1.0); %Lymphocytes 21.7 % (21.0-51.0); %Monocytes 6.8 % (0.0-10.0); Hemoglobin 11.6 g/dL (14.0-18.0); Mean Corpuscular HGB CONC 34.4 g/dL (32.0-36.0); Mean Corpuscular Hemoglobin 31.8 pg (27.0-31.0); Mean Corpuscular Volume 92.3 fL (78.0-98.0); Mean Platelet Volume 6.4 fL (7.4-10.4); Platelet Count 395 thou/uL (130-400); RBC Distribution Width 11.3 % (11.5-14.5); Red Blood Cell (RBC) Count 3.65 mill/uL (4.70-6.10); White Blood Cell (WBC) Count 8.1 thou/uL (4.8-10.8)
[2019-11-05 07:33] LABS: Anion Gap 9 mmol/L (10-20); BUN (Urea Nitrogen) 7 mg/dL (8.4-25.7); Calc. Creatinine Clearance 91 mL/min (70-130); Carbon Dioxide 23 mmol/L (23-31); Chloride 106 mmol/L (98-107); Estimated GFR-MDRD Greater than 90; Glucose 87 mg/dL (83-110); Magnesium 1.8 mg/dL (1.6-2.6); Potassium 3.7 mmol/L (3.5-5.1); Sodium 134 mmol/L (136-145)
[2019-11-05] MEDS ORDERED: Magnesium 2 GM/50 ML 2 GM in Premix Bag 1 BAG IVPB SCH (08:45)
[2019-11-05] MEDS: Sodium Chloride 1 GM TAB PO SCH ×3 (09:27→17:58)
[2019-11-05] MEDS: Lisinopril 10 MG TAB PO SCH ×2 (09:27→17:59)
[2019-11-05] MEDS: Carvedilol 6.25 MG TAB PO SCH (09:28)
[2019-11-05] MEDS: Apixaban 5 MG TAB PO SCH ×2 (09:28→20:24)
[2019-11-05] MEDS: Fludrocortisone Acetate 0.1 MG TAB PO SCH (09:29)
[2019-11-05] MEDS: Polyethylene Glycol 3350 17 GM Packet PO SCH (09:29)
[2019-11-05] MEDS: Aspirin Chewable 81 MG TAB PO SCH (09:29)
--- NOTE | 2019-11-05 09:35 | PRG ---
DATE OF SERVICE: 11/05/2019 SUBJECTIVE: Mr. Moore had a good day. He was able to walk down the [place] and come back with PT/OT without any difficulty. His medications were adjusted. Carvedilol was quickly titrated up to 25 mg by evening and the hydrocortisone was stopped due to rising blood pressure; however, the fludrocortisone was continued because that is necessary for holding his sodium. He underwent dose titration without any difficulty. His blood pressure is in the normal range this morning. REVIEW OF SYSTEMS: GENERAL: There is no fever, chills, or productive cough. HEENT: There is no change in vision, hearing, or swallowing. PULMONARY: He is not short of breath. CARDIAC: There is no palpitation, chest pains, or syncope. GI: There is no nausea, vomiting, or diarrhea. : He is urinating well. MUSCULOSKELETAL: There are no complaints of muscle or joint pains. INTEGUMENT: There are no complaints of skin breakdown. NEUROLOGIC: There are no new focal deficits or weaknesses. MEDICATIONS: That have cardiac effect include, 1. Apixaban 5 mg twice a day. 2. Aspirin 81 mg daily. 3. Atorvastatin 80 mg at bedtime. 4. Carvedilol is now at 25 mg q.12 hours. 5. Fludrocortisone 0.1 mg daily. 6. Hydralazine was started last night at 25 mg q.8 hours. 7. Lisinopril 20 mg twice per day. PHYSICAL EXAMINATION: Telemetry was reviewed. He is in sinus rhythm. Occasional PACs. There are no concerning arrhythmias. VITAL SIGNS: heart rate 72 and blood pressure 128/60. GENERAL: He is alert and conversational, reclining comfortably in bed. HEENT: Show EOMI. Oropharynx is benign with moist mucosa. NECK: His JVP is about 8 cm with positive hepatojugular reflux. PULMONARY: Lungs have good air movement bilateral. There are Velcro crackles at the right base. CARDIAC: Normal rate and rhythm. Normal S1 and S2. There may be very slight 1/ 6 holosystolic murmur at the left sternal border. There are no gallops, no rubs. ABDOMEN: Soft, nontender. Positive bowel sounds. EXTREMITIES: Lower extremities, minimal if any edema with positive dorsalis pedis pulses bilaterally. LABORATORY VALUES: There are no new laboratory values this morning. ASSESSMENT: 79-year-old gentleman has paroxysmal atrial fibrillation that has been well controlled. He has been in sinus rhythm for many days now. However, he will need to continue to need carvedilol and also anticoagulation with Eliquis. He has hyponatremia, most likely due to adrenal insufficiency. Adrenal insufficiency was confirmed by Cortrosyn stimulation test. Apparently, hydrocortisone and fludrocortisone combination caused too much hypertension. Right now, we are reducing down just to fludrocortisone. This mineralocorticoid is needed to hold his sodium values. He does have hypertension. We are in the process of finding a regimen for his hypertension. 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 Essentially, he has pre-heart failure stage. Please see the following for my recommendations. RECOMMENDATIONS: 1. Continue carvedilol at 25 mg twice a day. 2. Continue lisinopril 20 mg twice a day. 3. Stop hydralazine for now. Those two other medications were titrated up yesterday and hydrocodone was stopped. It will take two days to settle up. So adding hydralazine at this point, you could drop his blood pressure too much by tomorrow. 4. Continue fludrocortisone of 0.1 mg daily, this is needed to maintain his sodium and reduce orthostatic hypotension, 5. Please do stat labs now. We need to know what his sodium values and what his kidney functions are. He needs to demonstrate he has good lab values for three consecutive days before we can even think about discharge. If the sodium values are good this morning with good renal function and then his blood pressure is steady today and if the sodium value is still good tomorrow morning, then he can be discharged tomorrow. He will need close weekly followup for now and after that works, it can be lengthened. It has been a pleasure taking care of Mr. Moore. If you have any questions, please give me a call. Job ID: [id number] [facility]
--- NOTE | 2019-11-05 12:57 | PDOC.HOSPP ---
- Subjective Encounter Date: 11/05/19 Encounter Time: 10:15 Subjective: Seen this morning. His blood pressure all over the board. At 4 AM his systolic was 128. reading was 193/85 at 8 AM. aat 928 am, he recived coreg and lisinopril And then subsequently at 10:45 AM his vitals systolic 156/72 and 11:25 AM 117/56 , Suggesting that he does response to the blood pressure medications it has to be given on time I will adjust the timing of the blood pressure medications and monitor closely in the next 2 days and that gives a time also for placement issue that are still pending. Sodium is much better at 131 will DC the fludrocortisone. - Objective Vital Signs & Weight: Vital Signs (12 hours) Temp Pulse Resp BP BP Pulse Ox 11/05/19 11:25 97.6 F 67 16 117/56 L 97 11/05/19 09:45 69 156/72 H 11/05/19 07:50 97.2 F L 70 19 193/85 H 97 11/05/19 04:08 98.8 F 72 20 128/60 94 L Weight Admit Weight 176 lb Weight 172 lb 11.2 oz Most Recent Monitor Data Heart Rate from ECG 79 NIBP 157/73 NIBP BP-Mean 101 Respiration from ECG 9 SpO2 100 I&O: 11/04/19 11/05/19 11/06/19 06:59 06:59 06:59 Intake Total 800 1200 Output Total 2350 1605 Balance -1550 -405 Result Diagrams: 11/05/19 07:04 11/05/19 07:04 Additional Labs: Accuchecks 11/05/19 11/05/19 11/04/19 11:00 05:42 20:36 POC Glucose 115 H 91 124 H 11/04/19 16:59 POC Glucose 105 Hospitalist ROS - Medication Medications: Active Medications Generic Name Dose Route Start Last Admin Trade Name Freq PRN Reason Stop Dose Admin Acetaminophen 650 mg 10/23/19 03:24 10/31/19 00:46 Tylenol PO 650 mg Q4H PRN Administration Headache/Fever/Mild Pain (1-3) Apixaban 5 mg 11/01/19 21:00 11/05/19 09:28 Eliquis PO 5 mg BID JAELYN Administration Aspirin 81 mg 11/03/19 09:00 11/05/19 09:29 Aspirin Chewable PO 81 mg DAILY JAELYN Administration Atorvastatin Calcium 80 mg 11/02/19 21:00 11/04/19 22:07 Lipitor PO 80 mg HS JAELYN Administration Bisacodyl 10 mg 10/23/19 03:26 10/28/19 09:33 Dulcolax PO 10 mg DAILYPRN PRN Administration Constipation Carvedilol 25 mg 11/04/19 15:52 11/05/19 09:28 Coreg PO 25 mg Q12HR JAELYN Administration Fludrocortisone Acetate 0.1 mg 11/02/19 09:00 11/05/19 09:29 Florinef PO 0.1 mg DAILY JAELYN Administration Labetalol HCl 10 mg 11/03/19 09:08 11/04/19 14:34 Normodyne SLOW IVP 10 mg Q4H PRN Administration SBP>180 Lisinopril 20 mg 11/04/19 21:00 11/05/19 09:27 Zestril PO 20 mg Q12HR JAELYN Administration Pantoprazole Sodium 40 mg 11/03/19 09:00 11/05/19 09:29 Protonix PO 40 mg DAILY JAELYN Administration Polyethylene Glycol 17 gm 10/23/19 09:00 11/05/19 09:29 Miralax PO Not Given DAILY JAELYN Sodium Chloride 10 ml 10/25/19 09:00 11/05/19 09:30 Flush - Normal Saline IVF 10 ml Q12HR JAELYN Administration Sodium Chloride 2 gm 10/28/19 12:00 11/05/19 12:11 Sodium Chloride PO 2 gm TID-WM JAELYN Administration - Exam General Appearance: NAD, awake alert Eye: PERRL ENT: normocephalic atraumatic Neck: supple Heart: RRR Respiratory: CTAB Gastrointestinal: soft, normal bowel sounds Neurological: cranial nerve grossly intact, no focal deficits Psychiatric: A&O x 3 Hosp A/P - Plan (1) 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 * - follow sodium and restrict fluids, giving salt tabs (2) Dyslipidemia Code(s): E78.5 - HYPERLIPIDEMIA, UNSPECIFIED Status: Acute (3) Hypertension Code(s): I10 - ESSENTIAL (PRIMARY) HYPERTENSION Status: Acute (4) Hypomagnesemia Code(s): E83.42 - HYPOMAGNESEMIA Status: Acute (5) Metabolic encephalopathy Code(s): G93.41 - METABOLIC ENCEPHALOPATHY Status: Acute (6) Diabetes mellitus type 2 in nonobese Code(s): E11.9 - TYPE 2 DIABETES MELLITUS WITHOUT COMPLICATIONS Status: Chronic Anemia of chronic disease stable Metabolic acidosis * DM- blood glucose is stable- continue SSI--BG < 150 * * * HTN- blood pressure is stable * * He has been evaluated by PT and inpatient Rehab was recommended, he was orthostatic with PT yesterday, will place a Case management Consult for Rehab * * Rehab stay * SIRS syndrome, fever and mild leukocytosis without any sign of infection Possibly dehydration triggering orthostasis -Improving -TSH and cortisol level in the normal range -Get stim test for completion of the work-up Fever and leukocytosis -Infectious work-up is negative including chest x-ray and urine analysis -Blood cultures negative so far -Remained negative x48 hours then will de-escalate the antibiotics Hypovolemic hyponatremia -Sodium improving will monitor we will continue with Colin IV fluid for maintenance in addition to p.o. intake. A.m. labs. Continue with PT OT. 10th Possible adrenal insufficiency -Started on hydrocortisone as well as fludrocortisone per Dr. Howe. Patient used to smoke 35 years ago. No alcohol use. No recent weight loss or appetite change. No cough or hemoptysis. Clinically he does not seem to have any obvious risk factors for occult malignancy. However he presented with severe hyponatremia concerning for possible small cell lung cancer versus adenocarcinoma and/or diabetes insipidus. Discussed with Dr. Howe. -Follow-up on CT chest Plan to start him on lisinopril [address] Atrial fibrillation, new onset -Started on Toprol-XL for rate control and Eliquis 5 twice daily for anticoagulation. cr ok. echo showed nl EF, nl LVSF. Severe orthostatic hypotension Hyponatremia Probable transient adrenal insufficiency for more details pl my prior notes briefly-- stim test done due to orthostatic hypotension as well as hyponatremia and he showed adrenal insufficiency we started him on hydrocortisone as well as fludrocortisone his symptoms resolved in terms of dizziness. His sodium level also improved significantly at 131 today. He is having a good p.o. intake is and due to his labile and uptrending elevated blood pressure, discontinued both plus his sodium improved. Now trying to optimize his blood pressure with adjustment of the medications as given below. His blood pressure all over the board. At 4 AM his systolic was 128. reading was 193/85 at 8 AM. aat 928 am, he recived coreg and lisinopril And then subsequently at 10:45 AM his vitals systolic 156/72 and 11:25 AM 117/56 , Suggesting that he does response to the blood pressure medications it has to be given on time I will adjust the timing of the blood pressure medications and monitor closely in the next 2 days and that gives a time to work on placement issue that are still pending.
[2019-11-05] MEDS: Carvedilol 25 MG TAB PO SCH (17:59)
[2019-11-05] MEDS: Atorvastatin Calcium 40 MG TAB PO SCH (20:24)
[2019-11-06 05:26] LABS: Anion Gap 9 mmol/L (10-20); BUN (Urea Nitrogen) 7 mg/dL (8.4-25.7); Calc. Creatinine Clearance 99 mL/min (70-130); Carbon Dioxide 21 mmol/L (23-31); Chloride 106 mmol/L (98-107); Estimated GFR-MDRD Greater than 90; Glucose 87 mg/dL (83-110); Magnesium 1.9 mg/dL (1.6-2.6); Potassium 3.4 mmol/L (3.5-5.1); Sodium 133 mmol/L (136-145)
[2019-11-06 05:44] LABS: Band 2 % (5-11); Eosinophils 6 % (0-10); Hemoglobin 11.7 g/dL (14.0-18.0); Lymphocytes 24 % (21-51); MDiff Complete? YES; Mean Corpuscular HGB CONC 34.1 g/dL (32.0-36.0); Mean Corpuscular Hemoglobin 30.9 pg (27.0-31.0); Mean Corpuscular Volume 90.4 fL (78.0-98.0); Mean Platelet Volume 6.8 fL (7.4-10.4); Monocytes 7 % (0-10); Neutrophil 61 % (42-75); Platelet Count 422 thou/uL (130-400); Platelet Morphology Comment Appears Increased; RBC Distribution Width 11.4 % (11.5-14.5); Red Blood Cell (RBC) Count 3.81 mill/uL (4.70-6.10); White Blood Cell (WBC) Count 8.4 thou/uL (4.8-10.8)
[2019-11-06] MEDS: Carvedilol 25 MG TAB PO SCH ×2 (06:08→17:37)
[2019-11-06] MEDS: Lisinopril 10 MG TAB PO SCH ×2 (06:08→17:37)
[2019-11-06] MEDS ORDERED: Magnesium 2 GM/50 ML 2 GM in Premix Bag 1 BAG IVPB SCH (06:30)
[2019-11-06] MEDS ORDERED: Potassium Chloride 20 MEQ TAB PO SCH (07:00)
[2019-11-06] MEDS: Sodium Chloride 1 GM TAB PO SCH ×3 (09:14→17:36)
[2019-11-06] MEDS: Apixaban 5 MG TAB PO SCH ×2 (09:14→21:40)
[2019-11-06] MEDS: Aspirin Chewable 81 MG TAB PO SCH (09:14)
[2019-11-06] MEDS: Polyethylene Glycol 3350 17 GM Packet PO SCH (09:15)
[2019-11-06] MEDS ORDERED: Sodium Chloride 0.9% 500 ML IV SCH (11:15)
[2019-11-06] MEDS ORDERED: Fludrocortisone Acetate 0.1 MG TAB PO SCH (11:15)
--- NOTE | 2019-11-06 12:51 | PRG ---
DATE OF SERVICE: 11/06/2019 SUBJECTIVE: Mr. Moore had a good day yesterday. He was able to get up and walk. He said he was able to walk well all the way down far in the [place] and came back. He was looking forward to go home. However, his blood pressure has been variable and sometimes very high. He is currently on carvedilol 25 mg twice a day and lisinopril 20 mg twice a day. His fludrocortisone was stopped, so he did not get his fludrocortisone this morning. REVIEW OF SYSTEMS: GENERAL: There is no fever or chills, productive cough. HEENT: There is no change in vision, hearing, or swallowing. PULMONARY: There is no gross shortness of breath or cough. CARDIAC: There is no palpitation or chest pain or syncope. GI: There is no nausea, vomiting, or diarrhea. : He is urinating well. MUSCULOSKELETAL: There are no muscular joint pains. INTEGUMENT: There is no skin breakdown. NEUROLOGIC: There is no new focal deficits or weaknesses. Telemetry was reviewed. He is in sinus rhythm. There is occasional PVC. There is no concerning arrhythmia. MEDICATIONS: His cardiac medication includes 1. Apixaban which is Eliquis 5 mg twice a day. 2. Aspirin 81 mg daily. 3. Atorvastatin 80 mg at bedtime. 4. Carvedilol 25 mg twice per day. 5. Lisinopril 20 mg twice per day. PHYSICAL EXAMINATION: VITAL SIGNS: Heart rate between 60 to 70, measured supine. Blood pressure 3 times, first time it is 162/72, the next time 148/72, the third time it is 157/72. Then I sit him up for over 2 minutes. Around 2.5 minutes, he was found to lean over, his systolic blood pressure about 67/42, then I put him back down supine. He recovered quickly after 2 minutes or so. After 5 minutes, I sat him back up in a sitting position. Again this vanessa at 2 minutes his sitting blood pressure is 132/62. After Mr. Moore feeling well, I had him stand up while holding on his walker. About a minute, he became quite dizzy, looking faint. He could not stand for more than 1 minute. I quickly sat him down and in the sitting position systolic blood pressure was 70/45. Then, I quickly laid him back down, so after a minute, his supine blood pressure is back up to 138/67. Thus he has severe orthostatic hypotension this morning. GENERAL: He is alert, conversational, while reclining in bed. HEENT: EOMI. Oropharynx is benign with moist mucosa. NECK: JVP is only about 7 cm. LUNGS: There is good air movement bilaterally, however, there is Velcro like crackles on the right base, likely to be emphysema. HEART: Regular rate and rhythm with normal S1, S2. There is no discernible murmur, gallops no rubs. ABDOMEN: Soft, nontender. Positive bowel sounds. EXTREMITIES: His bilateral lower extremities are without edema, positive DPs bilaterally. LABORATORY DATA: Sodium 133, potassium 3.4, chloride 106, bicarb 21, BUN 7, creatinine 0.6. ASSESSMENT: 79-year-old gentleman has a complex set of problems. He has paroxysmal atrial fibrillation. However, this is well under control. He is in sinus rhythm right now. He has been anticoagulated with Eliquis, so it currently is not an issue. He does have adrenal insufficiency. This is shown by a Cortrosyn response test done on October 31, 2019. His baseline value was 10.2; at 60 minutes, it only increased to 19.4, so the delta which is the response is only 9.2. Consequently, this 9.2 response is very much less than the expected 20 or more. Consequently, he has adrenal insufficiency by Cortrosyn stimulation test. He also has hyponatremia. His hyponatremia was corrected by a combination of careful fluid management including hydration and supplementations of fludrocortisone and hydrocortisone at one time. Thus, the fludrocortisone will likely need to be continued. His severe orthostatic hypotension has returned. This is likely due to a combination of sudden cessation of fludrocortisone and somewhat volume depleted. He is net negative over the last 3 days. However, given his age and high cholesterol, the carotid stenosis may be playing a role in this lack of probable autonomic response. We may need to titrate down some on his other medications. Please see the following for my recommendation. RECOMMENDATION: 1. Resume fludrocortisone at 0.1 mg daily, first dose now. 2. Please give normal free saline 500 mL over period of 5 hours. This should normalize volume and provide quick mitigation to the severe orthostatic hypotension. 3. Please perform carotid ultrasounds bilaterally to make sure there is no carotid stenosis that is causing these problems. The episodic high blood pressure can be due to Amol response of insufficient blood flow getting through the carotids. 4. Please loosen the fluid restriction to least 2 L per day and encourage the patient to drink up to 2 L per day. I believe that his volume depletion is playing a role in this orthostatic hypotension also. 5. We had a long conversation about his problems. He will need a long-term Endocrinology followup. He also needs combination Rheumatology and Pulmonary followup. This is because he has an emphysema more prominent in the right lower base. This is quite unusual for nonsmoker. Autoimmune disease such as mixed connective tissue disease can cause this. So he will need to closely follow up this. After this discussion, his and him will rather go to [place] instead of [place], [place] for these specialty consults. I will make initial contact with Dr. Minaya at [facility] and [facility] in [place] and also all Dr. Morris to make a contact for long-term pulmonary followup. It has been a pleasure taking care of Mr. Moore. If you have any questions, please give me a call. This has been an extended visit using about 70 minutes. This includes making multiple orthostatic measurements, ensuring that the patient has a good recovery , and conducting family meeting. Job ID: [id number] [facility]
--- NOTE | 2019-11-06 13:54 | ULT ---
BILATERAL CAROTID DUPLEX ULTRASOUND: HISTORY: Possible carotid stenosis TECHNIQUE: Grayscale, color-flow and spectral Doppler ultrasound imaging of the extracranial carotid artery syst ems and vertebral arteries was performed bilaterally. FINDINGS: Intimal thickening involving bilateral carotid arteries. Small focus of calcified plaque in the right carotid bifurcation/proximal internal carotid artery. Additional calcified plaque is noted in the left carotid bifurcation. The peak systolic velocity in the right ICA measures 131.2 cm/s. The peak systolic velocity in the r ight CCA measures 156.7 cm/s. The peak systolic velocity in the left ICA measures 97.7 cm/s. The peak systolic velocity in the l eft CCA measures 71.1 cm/s. The right IC/CC ration is0.84. The left IC/CC ratio is 1.4. Vertebral flow: antegrade, bilaterally. . IMPRESSION: 1. Intimal thickening and small foci of calcified plaque in both carotid bifurcation. Despite absence of grayscale atherosclerotic burden, the peak systolic velocity of the right common carotid artery and intrapulmonary raising the positive moderate (50-69%) stenosis. Correlation made with a CT angiog megha of the head and neck on 08/30/2017 does not demonstrate any significant stenosis based upon NASCET criteria. 2. Additional imaging if clinically warranted.
--- NOTE | 2019-11-06 18:37 | PDOC.HOSPP ---
- Subjective Encounter Date: 11/06/19 Encounter Time: 11:00 Subjective: no overnight events. This morning, significant orthostatic hypotension. Resumed fludrocortisone as per Cardiology. On encounter, patient endorses smoking history of about 12 years, approximately a pack a week. - Objective Vital Signs & Weight: Vital Signs (12 hours) Temp Pulse Resp BP BP BP BP 11/06/19 17:37 167/59 H 11/06/19 16:26 122/86 122/86 126/88 11/06/19 15:22 98 F 70 16 11/06/19 11:26 97.5 F L 67 16 11/06/19 10:49 11/06/19 10:45 11/06/19 07:55 98.2 F 67 18 BP BP BP BP Pulse Ox 11/06/19 17:37 11/06/19 16:26 11/06/19 15:22 174/74 H 105/52 L 97 11/06/19 11:26 140/65 97 11/06/19 10:49 132/62 148/70 H 11/06/19 10:45 67/42 L 162/72 H 11/06/19 07:55 129/60 96 Weight Admit Weight 176 lb Weight 169 lb 1.6 oz Most Recent Monitor Data Heart Rate from ECG 79 NIBP 157/73 NIBP BP-Mean 101 Respiration from ECG 9 SpO2 100 I&O: 11/05/19 11/06/19 11/07/19 06:59 06:59 06:59 Intake Total 1200 1115 1750 Output Total 1605 900 975 Balance -405 215 775 Result Diagrams: 11/06/19 04:42 11/06/19 04:42 Additional Labs: Accuchecks 11/06/19 11/06/19 11/06/19 17:04 10:50 06:02 POC Glucose 94 123 H 84 11/05/19 20:30 POC Glucose 125 H Hospitalist ROS - Review of Systems Constitutional: denies: fever, chills, sweats Respiratory: denies: cough, dry, shortness of breath Cardiovascular: denies: chest pain, palpitations, orthopnea Gastrointestinal: denies: nausea, vomiting, abdominal pain - Medication Medications: Active Medications Generic Name Dose Route Start Last Admin Trade Name Freq PRN Reason Stop Dose Admin Acetaminophen 650 mg 10/23/19 03:24 10/31/19 00:46 Tylenol PO 650 mg Q4H PRN Administration Headache/Fever/Mild Pain (1-3) Apixaban 5 mg 11/01/19 21:00 11/06/19 09:14 Eliquis PO 5 mg BID JAELYN Administration Aspirin 81 mg 11/03/19 09:00 11/06/19 09:14 Aspirin Chewable PO 81 mg DAILY JAELYN Administration Atorvastatin Calcium 80 mg 11/02/19 21:00 11/05/19 20:24 Lipitor PO 80 mg HS JAELYN Administration Bisacodyl 10 mg 10/23/19 03:26 10/28/19 09:33 Dulcolax PO 10 mg DAILYPRN PRN Administration Constipation Carvedilol 25 mg 11/05/19 18:00 11/06/19 17:37 Coreg PO 25 mg 0600,1800 JAELYN Administration Labetalol HCl 10 mg 11/03/19 09:08 11/04/19 14:34 Normodyne SLOW IVP 10 mg Q4H PRN Administration SBP>180 Lisinopril 20 mg 11/05/19 18:00 11/06/19 17:37 Zestril PO 20 mg 0600,1800 JAELYN Administration Pantoprazole Sodium 40 mg 11/03/19 09:00 11/06/19 09:14 Protonix PO 40 mg DAILY JAELYN Administration Polyethylene Glycol 17 gm 10/23/19 09:00 11/06/19 09:15 Miralax PO Not Given DAILY JAELYN Sodium Chloride 10 ml 10/25/19 09:00 11/06/19 09:14 Flush - Normal Saline IVF 10 ml Q12HR JAELYN Administration Sodium Chloride 2 gm 10/28/19 12:00 11/06/19 17:36 Sodium Chloride PO 2 gm TID-WM JAELYN Administration - Exam General Appearance: NAD, awake alert Neck: no JVD Heart: RRR, no murmur, no gallops, no rubs Respiratory: CTAB, no wheezes, no rales, no ronchi Gastrointestinal: soft, non-tender, non-distended, normal bowel sounds Extremities: no edema Psychiatric: normal affect, normal behavior, A&O x 3 Hosp A/P - Plan #orthostatic hypotension -severe symptomatic per Dr. Howe this morning -possible etiologies: age, autonomic neuropathy (diabetic), polypharmacy ( antiHTN, previously administered promethazine), volume depletion (which could' ve also resulted in appropriate ADH on presentation and hyponatremia), anemia; cardiology onboard and suspecting adrenal insufficiency -echo done, no valvulopathy or heart failure -resumed fludrocortisone, bolus fluids, carotid US, less strict fluid restriction as per cardiology -head of bed 30 degrees reduce supine HTN -reapeat orthostatic blood pressure measurements #subacute normocytic anemia -Hgb down by approximately 4g in the past 13 days -patient on apixaban for p. afib -FOBT Disposition/PPx Full code GI PPx: No Ix DVT PPx: Lovenox
[2019-11-06 20:31] LABS: Eosinophils 6 % (0-10); Hemoglobin 11.2 g/dL (14.0-18.0); Lymphocytes 11 % (21-51); MDiff Complete? YES; Mean Corpuscular HGB CONC 34.4 g/dL (32.0-36.0); Mean Corpuscular Hemoglobin 31.4 pg (27.0-31.0); Mean Corpuscular Volume 91.2 fL (78.0-98.0); Mean Platelet Volume 6.7 fL (7.4-10.4); Monocytes 9 % (0-10); Neutrophil 74 % (42-75); Platelet Count 395 thou/uL (130-400); RBC Distribution Width 11.5 % (11.5-14.5); Red Blood Cell (RBC) Count 3.57 mill/uL (4.70-6.10); White Blood Cell (WBC) Count 8.6 thou/uL (4.8-10.8)
[2019-11-06] MEDS: Atorvastatin Calcium 40 MG TAB PO SCH (21:40)
[2019-11-07 04:55] LABS: Hemoglobin 11.1 g/dL (14.0-18.0)
[2019-11-07 05:16] LABS: Anion Gap 10 mmol/L (10-20); BUN (Urea Nitrogen) 8 mg/dL (8.4-25.7); Calc. Creatinine Clearance 96 mL/min (70-130); Calcium 7.6 mg/dL (7.8-10.44); Carbon Dioxide 20 mmol/L (23-31); Chloride 104 mmol/L (98-107); Estimated GFR-MDRD Greater than 90; Glucose 76 mg/dL (83-110); Potassium 3.5 mmol/L (3.5-5.1); Sodium 130 mmol/L (136-145)
[2019-11-07] MEDS: Lisinopril 10 MG TAB PO SCH ×3 (06:21→21:05)
[2019-11-07] MEDS: Carvedilol 25 MG TAB PO SCH (06:30)
[2019-11-07] MEDS ORDERED: Potassium Chloride 20 MEQ TAB PO SCH (06:45)
[2019-11-07] MEDS: Aspirin Chewable 81 MG TAB PO SCH (09:33)
[2019-11-07] MEDS: Carvedilol 6.25 MG TAB PO SCH ×2 (09:33→21:05)
[2019-11-07] MEDS: Apixaban 5 MG TAB PO SCH ×2 (09:34→21:04)
[2019-11-07] MEDS: Sodium Chloride 1 GM TAB PO SCH ×3 (09:34→17:35)
[2019-11-07] MEDS: Fludrocortisone Acetate 0.1 MG TAB PO SCH (09:34)
[2019-11-07] MEDS: Potassium Chloride 20 MEQ TAB PO SCH ×2 (09:35→21:04)
[2019-11-07] MEDS: Polyethylene Glycol 3350 17 GM Packet PO SCH (09:35)
--- NOTE | 2019-11-07 09:53 | PRG ---
DATE OF SERVICE: 11/07/2019 SUBJECTIVE: Mr. Moore had a good day. He had orthostatic hypotension yesterday morning. 500 mL of normal saline was given and fludrocortisone 0.1 mg was restarted and after that he was able to sustain blood pressure. In afternoon, he was able to stand up and walk down the length of the hallway and be back, so he had a good day. Overnight, he had good blood pressure. In the morning, he had systolic hypertension about 180s while either supine or head tilted up. He also had orthostatic hypotension. When he stands up, the blood pressure systolic was 97, so overnight the person stopped carvedilol, but continued the lisinopril. Lisinopril 20 mg was given at 6:00 am. REVIEW OF SYSTEMS: GENERAL: There is no fever, chills, or productive cough. HEENT: There is no change in vision, hearing, or swallowing. He does need hearing aid to hear well. PULMONARY: There is no shortness of breath. CARDIAC: There are no palpitation or chest pains. GI: He has some slight occasional gas. : He is urinating normal. MUSCULOSKELETAL: He does not complain of musculoskeletal pain. INTEGUMENT: There is no skin breakdown. NEUROLOGIC: There are no focal deficits or weaknesses. MEDICATIONS: Medications that have cardiac effects include: 1. Apixaban 5 mg twice a day. 2. Aspirin 81 mg daily. 3. Carvedilol was at 25 mg twice per day, but did not receive the morning dose. 4. Fludrocortisone 0.1 mg daily. 5. Lisinopril 20 mg twice a day. Telemetry was reviewed. The patient is in sinus rhythm, so there is no concerning arrhythmia. PHYSICAL EXAMINATION: VITALS: These were taken at about 7:30, which is about an hour and half after he took the lisinopril. His lean back blood pressure was 186/64. His blood pressure sitting is 155/72 and his standing blood pressure after about a minute and half he did not feel good and needed to sit down, his standing blood pressure was 66/37. After I sat him back down and rested for about 3 minutes his blood pressure went back up to about 189/84. So withholding the carvedilol did not help rather with lisinopril on board it really exacerbated his orthostatic hypotension. GENERAL: He is alert, conversational. There is no acute distress. Resting comfortably in bed while reclined. HEENT: EOMI. Oropharynx is benign with moist mucosa. JVP is about 7 cm with positive hepatojugular reflux. PULMONARY: There is good air movement bilaterally, however, he has velcro-like crackles at the right base. This is chronic. CARDIAC: Regular rate and rhythm. Normal S1, S2. There are no additional murmurs, gallops, or rubs. ABDOMEN: Soft, nontender. Positive bowel sounds. EXTREMITIES: Lower extremities, either no or minimal edema. LABORATORY VALUES: This morning, sodium 130, potassium 3.5, BUN 8, creatinine is 0.68. His hemoglobin is 11, hematocrit is 33.2. Bilateral carotid ultrasounds were done yesterday. Carotid Doppler showed there is a moderate right carotid stenosis between 50%-69% in correlation of both Doppler and prior CT. Thus, he has moderate carotid disease, but not critical. ASSESSMENT: This is a 79-year-old gentleman who has a complex set of problems. He did have paroxysms of atrial fibrillation. Consequently, he is being anticoagulated with Eliquis and he has remained in sinus rhythm for many days now. However, he will need to continue to have a beta-blockade to keep him in rhythm. A sudden cessation of beta-naseem can cause rebound tachycardia and rebound supine hypertension, so this should not be done. If carvedilol needs to be titrated down, but not suddenly stopped. The patient does have orthostatic hypotension, likely due to autonomic dysfunction. This is very difficult to treat problem, so we need to find a combination of arterial dilator to make sure that he has a good supine blood pressure and volume that he does not become orthostatic when he stands. At this point, it is better to decrease the lisinopril and use arterial dilator such as amlodipine, that way his supine blood pressure would be lowered and then we will need to use volume control with fludrocortisone and to maintain his orthostasis. He also has adrenal insufficiency as seen by a Cortrosyn stimulation test. Consequently for the time being, he will need continued supplementation of fludrocortisone. Fludrocortisone would also help with our orthostatic hypotension too. This may need to be titrated up; however , we will do the blood pressure medication first. We will consider titrating up the next day. The patient stopped smoking in 1984. He has not smoked for over 35 years. So consequently, he is essentially a nonsmoker. The emphysema he has in the right lung is unusual. So this needs further investigation. It does not have to be done in this hospitalization, will need to be followed. Please see my note from yesterday for this. RECOMMENDATIONS: 1. Decrease carvedilol to 12.5 mg q.12 hours. 2. Decrease lisinopril to 10 mg q.12 hours. 3. Start amlodipine 5 mg p.o. daily at noon. The idea for this is to decrease his supine hypertension. 4. Continue to use fludrocortisone 0.1 mg daily. This is to ensure he has enough sodium, enough volume, so he will be less likely to be orthostatic when he is set up in stance. This may need to be titrated up tomorrow. 5. Please ensure magnesium is checked everyday because if magnesium drops too low, he can have recurrent atrial fibrillation. 6. Please do supplement potassium that you are to keep the potassium at least 4.0 if at all possible, so he may need potassium twice a day. Of note, the low potassium will also cause hypertension. It has been a pleasure taking care of Mr. Moore. If you have any questions, please give me a call. Job ID: [id number] MTD[facility]
[2019-11-07] MEDS: Amlodipine 5 MG TAB PO SCH (11:58)
[2019-11-07] MEDS ORDERED: Magnesium 2 GM/50 ML 2 GM in Premix Bag 1 BAG IVPB SCH (13:15)
--- NOTE | 2019-11-07 16:51 | PDOC.HOSPP ---
- Subjective Encounter Date: 11/07/19 Encounter Time: 08:00 Subjective: no ovenright events. this morning, significant orthostatic hypotension. Per cardiology, adjusted antihypertensives - Objective Vital Signs & Weight: Vital Signs (12 hours) Temp Pulse Resp BP BP BP BP 11/07/19 15:19 98.3 F 74 14 150/66 H 11/07/19 11:56 98.1 F 72 18 159/55 H 11/07/19 08:25 98.7 F 67 18 155/72 H 66/37 L 11/07/19 06:21 183/80 H 11/07/19 06:15 183/80 H 97/52 L BP Pulse Ox 11/07/19 15:19 96 11/07/19 11:56 97 11/07/19 08:25 186/64 H 97 11/07/19 06:21 11/07/19 06:15 184/81 H Weight Admit Weight 176 lb Weight 170 lb 8 oz Most Recent Monitor Data Heart Rate from ECG 79 NIBP 157/73 NIBP BP-Mean 101 Respiration from ECG 9 SpO2 100 I&O: 11/06/19 11/07/19 11/08/19 06:59 06:59 06:59 Intake Total 1115 2710 Output Total 900 1780 Balance 215 930 Result Diagrams: 11/07/19 04:27 11/07/19 04:27 Additional Labs: Accuchecks 11/07/19 11/07/19 11/06/19 10:55 06:04 21:41 POC Glucose 80 75 100 11/06/19 17:04 POC Glucose 94 Hospitalist ROS - Review of Systems Constitutional: denies: chills, sweats Respiratory: denies: cough, shortness of breath, hemoptysis Cardiovascular: denies: chest pain, palpitations, orthopnea, paroxysmal noc. dyspnea, edema Gastrointestinal: denies: nausea, vomiting, diarrhea, melena, hematochezia Genitourinary: denies: dysuria, frequency, hematuria - Medication Medications: Active Medications Generic Name Dose Route Start Last Admin Trade Name Freq PRN Reason Stop Dose Admin Acetaminophen 650 mg 10/23/19 03:24 10/31/19 00:46 Tylenol PO 650 mg Q4H PRN Administration Headache/Fever/Mild Pain (1-3) Amlodipine Besylate 5 mg 11/07/19 12:00 08/16/20 11:58 Norvasc PO 5 mg 1200 JAELYN Administration Apixaban 5 mg 11/01/19 21:00 11/07/19 09:34 Eliquis PO 5 mg BID JAELYN Administration Aspirin 81 mg 11/03/19 09:00 11/07/19 09:33 Aspirin Chewable PO 81 mg DAILY JAELYN Administration Atorvastatin Calcium 80 mg 11/02/19 21:00 11/06/19 21:40 Lipitor PO 80 mg HS JAELYN Administration Bisacodyl 10 mg 10/23/19 03:26 10/28/19 09:33 Dulcolax PO 10 mg DAILYPRN PRN Administration Constipation Carvedilol 12.5 mg 11/07/19 09:00 11/07/19 09:33 Coreg PO 12.5 mg Q12HR JAELYN Administration Fludrocortisone Acetate 0.1 mg 11/07/19 09:00 11/07/19 09:34 Florinef PO 0.1 mg DAILY JAELYN Administration Labetalol HCl 10 mg 11/03/19 09:08 11/04/19 14:34 Normodyne SLOW IVP 10 mg Q4H PRN Administration SBP>180 Lisinopril 10 mg 11/07/19 09:00 11/07/19 09:35 Zestril PO Not Given Q12HR [facility] Pantoprazole Sodium 40 mg 11/03/19 09:00 11/07/19 09:34 Protonix PO 40 mg DAILY JAELYN Administration Polyethylene Glycol 17 gm 10/23/19 09:00 11/07/19 09:35 Miralax PO Not Given DAILY JAELYN Potassium Chloride 20 meq 11/07/19 09:00 11/07/19 09:35 K-Dur PO Not Given BID JAELYN Sodium Chloride 10 ml 10/25/19 09:00 11/07/19 09:36 Flush - Normal Saline IVF 10 ml Q12HR JAELYN Administration Sodium Chloride 2 gm 10/28/19 12:00 11/07/19 11:58 Sodium Chloride PO 2 gm TID-WM JAELYN Administration - Exam General Appearance: NAD, awake alert Neck: no JVD Heart: RRR, no gallops, no rubs Respiratory: CTAB, no wheezes, no rales, no ronchi Gastrointestinal: soft, non-tender, non-distended, normal bowel sounds Extremities: no edema Psychiatric: normal affect, normal behavior, A&O x 3 Hosp A/P - Plan #orthostatic hypotension -reduced dose and spaced out antihtn as per cardiology -head of bed 30 degrees reduce supine HTN -reapeat orthostatic blood pressure measurements daily -maintain Mg > 2 and K > 4 -if no improvement, may attempt to increase fludrocortisone in addition to antiHTN if becomes HTN; defer to cardiology #subacute normocytic anemia -Hgb down by approximately 4g in the past 13 days -patient on apixaban for p. afib -FOBT -ve but sensitivity limited #Emphysema #pulmonary nodule -no symptoms of airway obstruction -follow as outpatient Disposition/PPx Full code GI PPx: No Ix DVT PPx: Lovenox
[2019-11-07] MEDS: Atorvastatin Calcium 40 MG TAB PO SCH (21:04)
[2019-11-08 04:38] LABS: #Eosinphils 0.5 thou/uL (0.0-0.7); #Lymphocytes 1.7 thou/uL (1.20-3.40); #Neutrophils 6.7 thou/uL (1.40-6.50); %Basophils 0.4 % (0.0-1.0); %Eosinophils 5.4 % (0.0-10.0); %Lymphocytes 17.2 % (21.0-51.0); %Monocytes 10.4 % (0.0-10.0); %Neutrophils 66.7 % (42.0-75.0); Hemoglobin 11.3 g/dL (14.0-18.0); Mean Corpuscular HGB CONC 33.7 g/dL (32.0-36.0); Mean Corpuscular Hemoglobin 30.9 pg (27.0-31.0); Mean Corpuscular Volume 91.7 fL (78.0-98.0); Mean Platelet Volume 7.1 fL (7.4-10.4); Platelet Count 411 thou/uL (130-400); RBC Distribution Width 11.7 % (11.5-14.5); Red Blood Cell (RBC) Count 3.66 mill/uL (4.70-6.10)
[2019-11-08 04:59] LABS: Anion Gap 9 mmol/L (10-20); BUN (Urea Nitrogen) 10 mg/dL (8.4-25.7); Calc. Creatinine Clearance 95 mL/min (70-130); Calcium 7.7 mg/dL (7.8-10.44); Carbon Dioxide 21 mmol/L (23-31); Chloride 100 mmol/L (98-107); Estimated GFR-MDRD Greater than 90; Glucose 81 mg/dL (83-110); Magnesium 1.9 mg/dL (1.6-2.6); Potassium 4.1 mmol/L (3.5-5.1); Sodium 126 mmol/L (136-145)
[2019-11-08] MEDS ORDERED: Magnesium 2 GM/50 ML 2 GM in Premix Bag 1 BAG IVPB SCH (05:30)
[2019-11-08] MEDS: Magnesium Oxide 400 MG TAB PO SCH ×2 (08:56→21:09)
[2019-11-08] MEDS: Hydrocortisone 10 mg Tablet PO SCH ×2 (08:56→21:09)
[2019-11-08] MEDS: Aspirin Chewable 81 MG TAB PO SCH (08:56)
[2019-11-08] MEDS: Apixaban 5 MG TAB PO SCH ×2 (08:56→21:09)
[2019-11-08] MEDS: Lisinopril 10 MG TAB PO SCH ×2 (08:56→21:09)
[2019-11-08] MEDS: Potassium Chloride 20 MEQ TAB PO SCH ×2 (08:57→21:12)
[2019-11-08] MEDS: Fludrocortisone Acetate 0.1 MG TAB PO SCH (08:58)
[2019-11-08] MEDS: Polyethylene Glycol 3350 17 GM Packet PO SCH (08:58)
[2019-11-08] MEDS: Tolvaptan 15 MG TAB PO SCH (08:59)
[2019-11-08] MEDS ORDERED: Sodium Bicarbonate Tab 325 MG TAB PO SCH (09:00)
[2019-11-08] MEDS: Carvedilol 6.25 MG TAB PO SCH ×2 (09:03→21:08)
[2019-11-08] MEDS: Sodium Chloride 1 GM TAB PO SCH ×2 (09:13→16:16)
--- NOTE | 2019-11-08 10:19 | PRG ---
DATE OF SERVICE: 11/08/2019 SERVICE: [facility]ing [facility]. SUBJECTIVE: Mr. Park had a quiet day. No one came to walk with him yesterday. So consequently, he remained in bed most of the day. He was able to go to the bathroom and have a bowel movement walking by himself. Other than that, there has not been a major movement. His medications were changed yesterday. With that change, that seemed to have brought his reclining blood pressure down to the range of mid 120s to mid 130s. With the fludrocortisone on board, he was able to stand up last night. As of this morning, he has not had any medication yet when I saw him. REVIEW OF SYSTEMS: GENERAL: There is no fever, chills, or productive cough. HEENT: There is no change in vision, hearing, or swallowing. He does wear a hearing aid. PULMONARY: There is no shortness of breath. CARDIAC: There is no palpitation or chest pains. GI: There is no nausea, vomiting, or diarrhea. : He is urinating normally, as he believes he is. MUSCULOSKELETAL: There are no complaints of muscle pains or joint pains. INTEGUMENT: There is no new breakdown. NEUROLOGIC: There are no new focal deficits or weaknesses. CURRENT MEDICATIONS: His current medications that have cardiac effect include: 1. Amlodipine 5 mg daily at noon time. 2. Apixaban 5 mg twice a day. 3. Aspirin 81 mg daily. 4. Atorvastatin 80 mg nightly. 5. Carvedilol 12.5 mg every 12 hours. 6. Fludrocortisone 0.1 mg in the morning at 9 a.m. 7. Lisinopril 10 mg twice a day with carvedilol. 8. Potassium chloride (K-Dur) 20 mEq twice a day. 9. Sodium chloride tablet 2 g three times a day. Telemetry is reviewed, he is in sinus rhythm, there is no arrhythmia. PHYSICAL EXAMINATION: VITAL SIGNS: He reclining blood pressure is 134/65. I sat him up for about 2 to 3 minutes; after 3 minutes, his sitting blood pressure is 120/57. I stood him up with him holding on his walker, about 2 minutes, he began to feel very faint. I quickly sat him down and the blood pressure was 91/55. LABORATORY DATA: His chemistry was reviewed. Sodium 126, it is down from 130 yesterday, potassium 4.1, chloride 100, bicarb 21, BUN 10, creatinine 0.69. His last 24-hour input and output, 1700 in and 1215 out. ASSESSMENT: 79-year-old gentleman who has a vexing set of problems. He continued to have orthostatic hypotension. This seems to be helped with fludrocortisone. He is able to stand after taking fludrocortisone, but not before. However, this is in direct opposition to his hyponatremia. With increasing volume, he is more hyponatremic. He does have adrenal insufficiency. He is currently being supplemented with fludrocortisone only. Perhaps, hydrocortisone at low dose will need to be restarted. He still is on sodium 2 g three times a day. This was to correct his initial severe hyponatremia. It could be one of the reasons why he has such a high supine hypertension at times. This will need to be eventually titrated down. He did have atrial fibrillation. However, he has been in sinus rhythm for many days now. Carvedilol controlled the rate and decreased his chance of atrial fibrillation happening again and he is on Eliquis to prevent stroke. At this point, we need to find a combination that would retain sodium while providing him enough volume to give him enough blood pressure where he does not go orthostatic. Please see the following for my recommendations. RECOMMENDATIONS: 1. Start tolvaptan at 15 mg daily. 2. Please provide sodium bicarb 650 mg daily. This is because he has low bicarb. 3. Decrease sodium chloride to 2 g twice a day instead of 3 times a day. 4. Continue with fludrocortisone at 0.1 mg daily. 5. I will compensate today with starting of chronic adrenal insufficiency treatment, so this also will help him to retain the sodium. 6. He has such amount of ADH response. Perhaps, there is a tumor about the hypothalamus region perhaps, but this region of the brain needs to be imaged. I will speak with radiologist to find the proper imaging modality for this. It has been a pleasure taking care of Mr. Moore. If you have any questions, please give me a call. Job ID: [id number] [facility]
--- NOTE | 2019-11-08 11:16 | MRI ---
Exam: Brain MRI with and without contrast HISTORY: Severe hyponatremia. COMPARISON: 10/03/2014 FINDINGS: Brain MRI: Hemorrhage: No parenchymal hemorrhage or extra-axial hematoma Calvarium: Appropriate T1 marrow signal intensity Midline brain parenchyma: Unremarkable Cerebrum:No parenchymal mass, mass effect or midline shift. Brain volume, age-appropriate. Cortical g ray-white matter differentiation is preserved. T2 and FLAIR white matter hyperintensities, similar to the previous examination and are felt to represent chronic small vessel ischemic change. Ventricles: No evidence of hydrocephalus. Sinuses and mastoid air cells: Minimal mucous retention cyst in the left and right maxillary sinus. P artial opacification of the bilateral mastoid air cells, right greater than left Diffusion: Central arterial flow is maintained. Absent restricted diffusion. Postcontrast images: No pathologic enhancement of the brain parenchyma. Pituitary MRI: Precontrast images demonstrate no abnormal signal intensity in the pituitary gland. Postcontrast imag es demonstrate homogeneous enhancement. No evidence of a microadenoma. Pituitary gland is not expanded. No evidence of a macroadenoma. Midline pituitary stalk. No mass effect upon the optic chiasm or prechiasmatic nerves IMPRESSION: 1. Absent restricted diffusion. No acute infarct. 2. Stable chronic small vessel ischemic changes of the white matter. 3. Homogeneous enhancement of the pituitary gland. No MR evidence of a microadenoma or macroadenoma.
[2019-11-08] MEDS: Amlodipine 5 MG TAB PO SCH (11:35)
--- NOTE | 2019-11-08 13:02 | PDOC.HOSPP ---
- Subjective Encounter Date: 11/08/19 Encounter Time: 12:50 Subjective: Patient reports he is feeling well. States he just had a bowel movement and was able to walk to the bathroom with assistance from the RN. States he was told he did well with mobility. Denies any lightheadedness or dizziness when standing. Denies any complaints at this time. Reports eating less than usual due to not liking the meals but denies any nausea or vomiting. He forced himself eat half of his meal. Denies any complaints at this time. Per Dr. Vogel note patient did become orthostatic during assessment. He felt faint after standing for some time and repeat BP showed orthostasis (Lyin/ 65, Sitting 120/57, Standing after 2 min: 91/55). - Objective Vital Signs & Weight: Vital Signs (12 hours) Temp Pulse Resp BP BP BP BP 11/08/19 11:06 98.1 F 72 16 148/67 H 11/08/19 07:34 98.1 F 71 20 120/57 L 91/55 L 134/65 11/08/19 03:57 99 F 76 18 122/56 L Pulse Ox 11/08/19 11:06 96 11/08/19 07:34 95 11/08/19 03:57 93 L Weight Admit Weight 176 lb Weight 172 lb 4.8 oz Most Recent Monitor Data Heart Rate from ECG 79 NIBP 157/73 NIBP BP-Mean 101 Respiration from ECG 9 SpO2 100 I&O: 11/07/19 11/08/19 11/09/19 06:59 06:59 06:59 Intake Total 2710 1700 Output Total 1780 1215 Balance 930 485 Result Diagrams: 11/08/19 04:17 11/08/19 04:17 Additional Labs: Accuchecks 11/08/19 11/08/19 11/07/19 12:06 05:40 20:10 POC Glucose 93 83 118 H 11/07/19 16:33 POC Glucose 91 Radiology Reviewed by me: Yes (s/p MRI brain) Hospitalist ROS - Review of Systems Constitutional: denies: fever, chills, sweats, weakness, malaise, other Eyes: denies: pain, vision change, conjunctivae inflammation, eyelid inflammation, redness, other ENT: denies: ear pain, ear discharge, nose pain, nose discharge, nose congestion , mouth pain, mouth swelling, throat pain, throat swelling, other Respiratory: denies: cough, dry, shortness of breath, hemoptysis, SOB with excertion, pleuritic pain, sputum, wheezing, other Cardiovascular: denies: chest pain, palpitations, orthopnea, paroxysmal noc. dyspnea, edema, light headedness, other Gastrointestinal: denies: nausea, vomiting, abdominal pain, diarrhea, constipation, melena, hematochezia, other Genitourinary: denies: dysuria, frequency, incontinence, hematuria, retention, other - Medication Medications: Active Medications Generic Name Dose Route Start Last Admin Trade Name Freq PRN Reason Stop Dose Admin Acetaminophen 650 mg 10/23/19 03:24 10/31/19 00:46 Tylenol PO 650 mg Q4H PRN Administration Headache/Fever/Mild Pain (1-3) Amlodipine Besylate 5 mg 11/07/19 12:00 11/08/19 11:35 Norvasc PO 5 mg 1200 JAELYN Administration Apixaban 5 mg 11/01/19 21:00 11/08/19 08:56 Eliquis PO 5 mg BID JAELYN Administration Aspirin 81 mg 11/03/19 09:00 11/08/19 08:56 Aspirin Chewable PO 81 mg DAILY JAELYN Administration Atorvastatin Calcium 80 mg 11/02/19 21:00 11/07/19 21:04 Lipitor PO 80 mg HS JAELYN Administration Bisacodyl 10 mg 10/23/19 03:26 10/28/19 09:33 Dulcolax PO 10 mg DAILYPRN PRN Administration Constipation Carvedilol 12.5 mg 11/07/19 09:00 11/08/19 09:03 Coreg PO 12.5 mg Q12HR JAELYN Administration Fludrocortisone Acetate 0.1 mg 11/07/19 09:00 11/08/19 08:58 Florinef PO 0.1 mg DAILY JAELYN Administration Hydrocortisone 10 mg 11/08/19 09:00 11/08/19 08:56 Cortef PO 10 mg QAM JAELYN Administration Labetalol HCl 10 mg 11/03/19 09:08 11/04/19 14:34 Normodyne SLOW IVP 10 mg Q4H PRN Administration SBP>180 Lisinopril 10 mg 11/07/19 09:00 11/08/19 08:56 Zestril PO 10 mg Q12HR JAELYN Administration Magnesium Oxide 400 mg 11/08/19 09:00 11/08/19 08:56 Magnesium Oxide PO 400 mg BID JAELYN Administration Pantoprazole Sodium 40 mg 11/03/19 09:00 11/08/19 08:57 Protonix PO 40 mg DAILY JAELYN Administration Polyethylene Glycol 17 gm 10/23/19 09:00 11/08/19 08:58 Miralax PO 17 gm DAILY JAELYN Administration Potassium Chloride 20 meq 11/07/19 09:00 11/08/19 08:57 K-Dur PO 20 meq BID JAELYN Administration Sodium Bicarbonate 650 mg 11/08/19 09:00 11/08/19 08:57 Bicarbonate, Sodium PO 650 mg DAILY JAELYN Administration Sodium Chloride 10 ml 10/25/19 09:00 11/08/19 09:01 Flush - Normal Saline IVF 10 ml Q12HR JAELYN Administration Tolvaptan 15 mg 11/08/19 09:00 11/08/19 08:59 Samsca PO 15 mg DAILY JAELYN Administration - Exam General Appearance: NAD Eye: PERRL, anicteric sclera ENT: normocephalic atraumatic Neck: supple, no lymphadenopathy Heart: RRR Respiratory: CTAB, no wheezes, no rales, no ronchi, normal chest expansion, no tachypnea Gastrointestinal: soft, non-tender, non-distended, normal bowel sounds Extremities: no edema Skin: normal turgor, no lesions, no rashes Neurological: no focal deficits Psychiatric: A&O x 3 Hosp A/P (1) Orthostatic hypotension Code(s): I95.1 - ORTHOSTATIC HYPOTENSION Status: Chronic Plan: As per Dr. Howe. Recent adjustments made to meds. (2) Normocytic anemia Code(s): D64.9 - ANEMIA, UNSPECIFIED Status: Chronic Plan: FOBT negative, continue to monitor H/H. He is on anticoagulation for afib. (3) Emphysema lung Code(s): J43.9 - EMPHYSEMA, UNSPECIFIED Status: Chronic (4) Hyponatremia Code(s): E87.1 - HYPO-OSMOLALITY AND HYPONATREMIA Status: Acute - Plan S/p MRI Brain showing no acute infarct, stable chronic small vessel ischemic changes of the white matter and no evidence of microadenoma or macroadenoma. This was obtained by Dr. Howe due to suspicion of tumor causing ADH response. Patient started on Tolvaptan and sodium bicarb. Remains on fludrocortisone. S/p Echo: EF of 60/65%, otherwise unremarkable. S/p Carotid US: Intimal thickening and small foci of calcified plaque in both carotid bifurcation with moderate stenosis in the right common carotid artery ( 50-69%). Continue to monitor Na+, patient on fluid restrictions. Monitor BP. Continue orthostatic BPs. Further recommendations/management as per Dr. Howe.
[2019-11-08] MEDS ORDERED: Magnevist 469MG/ML 20 ML VIAL ONE (15:58)
[2019-11-08] MEDS: Atorvastatin Calcium 40 MG TAB PO SCH (21:10)
[2019-11-09 04:31] LABS: #Eosinphils 0.1 thou/uL (0.0-0.7); #Lymphocytes 1.4 thou/uL (1.20-3.40); #Monocytes 0.8 thou/uL (0.11-0.59); #Neutrophils 5.1 thou/uL (1.40-6.50); %Basophils 0.5 % (0.0-1.0); %Eosinophils 1.2 % (0.0-10.0); %Lymphocytes 18.3 % (21.0-51.0); %Monocytes 10.5 % (0.0-10.0); %Neutrophils 69.5 % (42.0-75.0); Mean Corpuscular HGB CONC 33.9 g/dL (32.0-36.0); Mean Corpuscular Volume 91.2 fL (78.0-98.0); Mean Platelet Volume 7.3 fL (7.4-10.4); Platelet Count 463 thou/uL (130-400); RBC Distribution Width 11.7 % (11.5-14.5); Red Blood Cell (RBC) Count 3.86 mill/uL (4.70-6.10); White Blood Cell (WBC) Count 7.4 thou/uL (4.8-10.8)
[2019-11-09 05:26] LABS: Anion Gap 10 mmol/L (10-20); BUN (Urea Nitrogen) 10 mg/dL (8.4-25.7); Calc. Creatinine Clearance 89 mL/min (70-130); Calcium 8.2 mg/dL (7.8-10.44); Carbon Dioxide 21 mmol/L (23-31); Chloride 108 mmol/L (98-107); Estimated GFR-MDRD Greater than 90; Glucose 103 mg/dL (83-110); Magnesium 2.3 mg/dL (1.6-2.6); Potassium 4.4 mmol/L (3.5-5.1); Sodium 135 mmol/L (136-145)
[2019-11-09] MEDS ORDERED: Sodium Chloride 0.9% 750 ML IV SCH (09:00)
[2019-11-09] MEDS: Sodium Chloride 1 GM TAB PO SCH (09:23)
[2019-11-09] MEDS: Apixaban 5 MG TAB PO SCH ×2 (09:27→21:01)
[2019-11-09] MEDS: Aspirin Chewable 81 MG TAB PO SCH (09:27)
[2019-11-09] MEDS: Carvedilol 6.25 MG TAB PO SCH ×2 (09:28→21:02)
[2019-11-09] MEDS: Fludrocortisone Acetate 0.1 MG TAB PO SCH (09:28)
[2019-11-09] MEDS: Potassium Chloride 20 MEQ TAB PO SCH ×2 (09:28→21:03)
[2019-11-09] MEDS: Sodium Bicarbonate Tab 325 MG TAB PO SCH ×2 (09:28→21:02)
[2019-11-09] MEDS: Magnesium Oxide 400 MG TAB PO SCH ×2 (09:28→21:01)
[2019-11-09] MEDS: Lisinopril 10 MG TAB PO SCH ×2 (09:28→21:01)
[2019-11-09] MEDS: Polyethylene Glycol 3350 17 GM Packet PO SCH (09:29)
[2019-11-09] MEDS: Tolvaptan 15 MG TAB PO SCH (09:29)
[2019-11-09] MEDS: Hydrocortisone 10 mg Tablet PO SCH ×2 (09:29→21:02)
--- NOTE | 2019-11-09 09:59 | PRG ---
DATE OF SERVICE: 11/09/2019 SUBJECTIVE: Mr. Xavier Moore had a good day. Apparently after fludrocortisone and steroid supplementation of hydrocortisone, he was able to sustain his blood pressure. He was able to walk to the bathroom himself and had a bowel movement by himself. He was able to do this without being orthostatic. Since the start of tolvaptan, he had a large amount of urine output. He said that he ever since then been passing clear urine. He had a large amount of urine output yesterday. He also had a bowel movement. He said he feels pretty good this morning. REVIEW OF SYSTEMS: GENERAL: There is no fever, chills, or productive cough. HEENT: There is no changing in vision, hearing or swallowing. He does wear hearing aid. He is hard of hearing. PULMONARY: There is no shortness of breath. CARDIAC: There is no palpitations, shortness of breath, or syncope. GI: There is no nausea or vomiting. Please see HPI about the bowel movement. : Please see HPI. MUSCULOSKELETAL: There are no new muscle or joint pains. INTEGUMENT: There is no skin breakdown. NEUROLOGIC: There are no new focal deficits. MEDICATIONS: Medications to have cardiac effect include 1. Amlodipine 5 mg daily. 2. Apixaban 5 mg twice a day. 3. Aspirin 81 mg daily. 4. Atorvastatin 80 mg at bedtime. 5. Carvedilol at 12.5 mg q.12 hours. 6. Fludrocortisone 0.1 mg daily. 7. Hydrocortisone 10 mg in the morning and 5 mg in the afternoon. 8. Lisinopril at 10 mg every 12 hours. 9. Magnesium oxide 400 mg twice a day. 10. Potassium chloride 20 mEq twice a day. 11. Sodium bicarb 650 mg daily. 12. Sodium chloride salt tablets 2 g b.i.d. 13. Also tolvaptan 15 mg daily. Telemetry: Telemetry was reviewed. He is in sinus rhythm. Has occasional PVC other than there is no concerning arrhythmia. PHYSICAL EXAMINATION: VITAL SIGNS: Heart rate 75, blood pressure 142/63, one set of orthostatics was done. His resting heart rate was 74. Blood pressure 143/65. After sitting up for about 2 minutes, his blood pressure dropped down to 116/54. His input and output yesterday was 1070 input and 3375 output, so he is net negative at 2305 mL. GENERAL: He is alert and conversational, resting comfortably in bed. HEENT: EOMI. Oropharynx is benign with moist mucosa. NECK: His JVP is about 7 cm. Negative hepatojugular reflux. PULMONARY: There is good air movement bilaterally. However, he has chronic right basilar Velcro crackles corresponding to emphysema. CARDIAC: Regular rate and rhythm. Normal S1, S2. There is no discernible murmurs, gallops, no rubs. ABDOMEN: Soft, nontender. Positive bowel sounds. EXTREMITIES: Lower extremity are without edema. LABORATORY DATA: His laboratory values include white cell count 7.4, hemoglobin 12, hematocrit 35, and platelets 463. His chemistry values show sodium 135, that is increased from 126 yesterday, chloride 108, bicarb still lower at 21, but he still has a bit of metabolic acidosis. BUN 10, creatinine at 0.74. MRI was done yesterday. It showed chronic age-related small-vessel ischemic changes. There is no acute infarct and there is also no concerning pituitary adenoma or hypothalamus mass. 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 ASSESSMENT: 79-year-old gentleman is making progress in terms of hyponatremia. Combination of supplementation for his adrenal insufficiency and anti-diuretic hormone therapy with tolvaptan has increased his sodium value back in the normal range. At this point, we need to titrate off the sodium chloride tablets that he has been getting since October 27. However, due to ongoing metabolic acidosis, we will still need to have sodium bicarb supplementation. Currently he is volume depleted, he is still orthostatic. If he drops 30 mm systolic blood pressure from reclining to sitting, so he is still orthostatic and would need some volume replacement. Another possibility is to provide compression stocking that would help too. He will need to have to continue carvedilol and also Eliquis for his paroxysmal atrial fibrillation. Right now, he is well controlled. There is no recurrence of atrial fibrillation. So overall he is making good progress. So I am hoping that we can find a set of medication that would help him to be able to stand up and walk. Long-term lópez, he will still need Endocrinology and Pulmonary for followup. Please see the following for my recommendations. RECOMMENDATIONS: 1. Please give normal saline IV fluids 75 mL/hour for 10 hours, so that will be 750 mL volume. 2. Stop sodium chloride. 3. Increase the amount of frequency of sodium bicarbonate 650 mg to two tablets twice a day. 4. Ensure BMP and magnesium labs are done continuously. 5. Make no fluid restriction for now. We need to see what he will do if he is drinking on his own and off volume repletion for 2 days before we can make a judgment to see that current regimen will work or not. 6. Please provide compression stockings about 20 mmHg range. If there is no compression stocking available, then please use CLAUDE hoses. 7. Please ask PT and OT to work with patient for him to regain function. It has been a pleasure taking care of Mr. Moore. If you have any questions, please give me a call. Job ID: [id number] MTDD
[2019-11-09] MEDS: Amlodipine 5 MG TAB PO SCH (11:50)
--- NOTE | 2019-11-09 15:29 | PDOC.HOSPP ---
- Subjective Encounter Date: 11/09/19 Encounter Time: 08:00 Subjective: no overnight events. this morning, feeling well and has no complaints. Gross orthostatic hypotension persists even with sitting, though he endorses no symptoms - Objective Vital Signs & Weight: Vital Signs (12 hours) Temp Pulse Resp BP BP BP Pulse Ox 11/09/19 11:29 98.7 F 70 17 135/62 104/51 L 70/44 L 94 L 11/09/19 07:26 98.1 F 74 20 143/65 H 116/54 L 96 11/09/19 04:00 98.5 F 75 17 142/63 H 94 L Weight Admit Weight 176 lb Weight 172 lb 4.8 oz Most Recent Monitor Data Heart Rate from ECG 79 NIBP 157/73 NIBP BP-Mean 101 Respiration from ECG 9 SpO2 100 I&O: 11/08/19 11/09/19 11/10/19 06:59 06:59 06:59 Intake Total 1700 1070 Output Total 1215 3375 Balance 485 -2305 Result Diagrams: 11/09/19 04:00 11/09/19 04:00 Additional Labs: Accuchecks 11/09/19 11/08/19 11/08/19 06:00 20:27 16:12 POC Glucose 99 131 H 106 Hospitalist ROS - Review of Systems Constitutional: denies: chills, sweats Respiratory: denies: cough, shortness of breath Cardiovascular: denies: chest pain, palpitations, orthopnea, paroxysmal noc. dyspnea, edema Gastrointestinal: denies: nausea, vomiting, abdominal pain, diarrhea Genitourinary: denies: dysuria, frequency, hematuria - Medication Medications: Active Medications Generic Name Dose Route Start Last Admin Trade Name Freq PRN Reason Stop Dose Admin Acetaminophen 650 mg 10/23/19 03:24 10/31/19 00:46 Tylenol PO 650 mg Q4H PRN Administration Headache/Fever/Mild Pain (1-3) Amlodipine Besylate 5 mg 11/07/19 12:00 11/09/19 11:50 Norvasc PO 5 mg 1200 JAELYN Administration Apixaban 5 mg 11/01/19 21:00 11/09/19 09:27 Eliquis PO 5 mg BID JAELYN Administration Aspirin 81 mg 11/03/19 09:00 11/09/19 09:27 Aspirin Chewable PO 81 mg DAILY JAELYN Administration Atorvastatin Calcium 80 mg 11/02/19 21:00 11/08/19 21:10 Lipitor PO 80 mg HS JAELYN Administration Bisacodyl 10 mg 10/23/19 03:26 10/28/19 09:33 Dulcolax PO 10 mg DAILYPRN PRN Administration Constipation Carvedilol 12.5 mg 11/07/19 09:00 11/09/19 09:28 Coreg PO 12.5 mg Q12HR JAELYN Administration Fludrocortisone Acetate 0.1 mg 11/07/19 09:00 11/09/19 09:28 Florinef PO 0.1 mg DAILY JAELYN Administration Hydrocortisone 10 mg 11/08/19 09:00 11/09/19 09:29 Cortef PO 10 mg QAM JAELYN Administration Hydrocortisone 5 mg 11/08/19 21:00 11/08/19 21:09 Cortef PO 5 mg QPM JAELYN Administration Sodium Chloride 750 mls @ 75 mls/hr 11/09/19 09:00 11/09/19 09:34 Normal Saline 0.9% IV 11/09/19 18:59 750 mls .Q10H JAELYN Administration Labetalol HCl 10 mg 11/03/19 09:08 11/04/19 14:34 Normodyne SLOW IVP 10 mg Q4H PRN Administration SBP>180 Lisinopril 10 mg 11/07/19 09:00 11/09/19 09:28 Zestril PO 10 mg Q12HR JAELYN Administration Magnesium Oxide 400 mg 11/08/19 09:00 11/09/19 09:28 Magnesium Oxide PO 400 mg BID JAELYN Administration Pantoprazole Sodium 40 mg 11/03/19 09:00 11/09/19 09:28 Protonix PO 40 mg DAILY JAELYN Administration Polyethylene Glycol 17 gm 10/23/19 09:00 11/09/19 09:29 Miralax PO 17 gm DAILY JAELYN Administration Potassium Chloride 20 meq 11/07/19 09:00 11/09/19 09:28 K-Dur PO 20 meq BID JAELYN Administration Sodium Bicarbonate 650 mg 11/09/19 09:00 11/09/19 09:28 Bicarbonate, Sodium PO 650 mg BID JAELYN Administration Sodium Chloride 10 ml 10/25/19 09:00 11/09/19 09:33 Flush - Normal Saline IVF 10 ml Q12HR JAELYN Administration Tolvaptan 15 mg 11/08/19 09:00 11/09/19 09:29 Samsca PO 15 mg DAILY JAELYN Administration - Exam General Appearance: NAD, awake alert Eye: PERRL, anicteric sclera Neck: no JVD Heart: RRR, no murmur, no gallops, no rubs Respiratory: CTAB, no wheezes, no rales, no ronchi Gastrointestinal: soft, non-tender, non-distended, normal bowel sounds Extremities: no edema Psychiatric: normal affect, normal behavior, A&O x 3 Hosp A/P - Plan #orthostatic hypotension -reduced dose and spaced out antihtn as per cardiology -head of bed 30 degrees reduce supine HTN -reapeat orthostatic blood pressure measurements daily -maintain Mg > 2 and K > 4 -administer 750cc NS, stop NaCl, and increase sodium bicarb; continue hydrocortisone and tolvaptan as per cardiology #subacute normocytic anemia -Hgb down by approximately 4g in the past 13 days -patient on apixaban for p. afib -FOBT -ve but sensitivity limited #Emphysema #pulmonary nodule -no symptoms of airway obstruction -follow as outpatient Disposition/PPx Full code GI PPx: No Ix DVT PPx: Lovenox
[2019-11-09] MEDS: Atorvastatin Calcium 40 MG TAB PO SCH (21:02)
[2019-11-09] MEDS: Acetaminophen 325 MG TAB PO PRN (21:03)
[2019-11-10 03:57] LABS: #Eosinphils 0.1 thou/uL (0.0-0.7); #Lymphocytes 1.1 thou/uL (1.20-3.40); #Monocytes 0.6 thou/uL (0.11-0.59); #Neutrophils 4.3 thou/uL (1.40-6.50); %Basophils 0.7 % (0.0-1.0); %Eosinophils 1.6 % (0.0-10.0); %Lymphocytes 17.8 % (21.0-51.0); %Neutrophils 69.9 % (42.0-75.0); Hemoglobin 11.5 g/dL (14.0-18.0); Mean Corpuscular HGB CONC 32.2 g/dL (32.0-36.0); Mean Corpuscular Hemoglobin 29.8 pg (27.0-31.0); Mean Corpuscular Volume 92.6 fL (78.0-98.0); Mean Platelet Volume 7.2 fL (7.4-10.4); Platelet Count 512 thou/uL (130-400); RBC Distribution Width 11.8 % (11.5-14.5); Red Blood Cell (RBC) Count 3.86 mill/uL (4.70-6.10); White Blood Cell (WBC) Count 6.1 thou/uL (4.8-10.8)
[2019-11-10 04:23] LABS: ALT (SGPT) 15 U/L (8-55); AST (SGOT) 15 U/L (5-34); Albumin 2.9 g/dL (3.4-4.8); Alkaline Phosphatase 63 U/L (40-110); Bilirubin, Direct 0.2 mg/dL (0.1-0.3); Bilirubin, Total 0.4 mg/dL (0.2-1.2)
[2019-11-10 04:28] LABS: Anion Gap 10 mmol/L (10-20); BUN (Urea Nitrogen) 11 mg/dL (8.4-25.7); Calc. Creatinine Clearance 89 mL/min (70-130); Calcium 8.1 mg/dL (7.8-10.44); Carbon Dioxide 23 mmol/L (23-31); Chloride 110 mmol/L (98-107); Estimated GFR-MDRD Greater than 90; Glucose 115 mg/dL (83-110); Magnesium 2.3 mg/dL (1.6-2.6); Potassium 4.4 mmol/L (3.5-5.1); Sodium 139 mmol/L (136-145)
[2019-11-10] MEDS: Potassium Chloride 20 MEQ TAB PO SCH ×2 (08:26→21:19)
[2019-11-10] MEDS: Apixaban 5 MG TAB PO SCH ×2 (08:28→21:19)
[2019-11-10] MEDS: Carvedilol 6.25 MG TAB PO SCH ×2 (08:29→21:19)
[2019-11-10] MEDS: Hydrocortisone 10 mg Tablet PO SCH ×2 (08:29→21:18)
[2019-11-10] MEDS: Aspirin Chewable 81 MG TAB PO SCH (08:29)
[2019-11-10] MEDS: Sodium Bicarbonate Tab 325 MG TAB PO SCH ×2 (08:29→21:18)
[2019-11-10] MEDS: Magnesium Oxide 400 MG TAB PO SCH ×2 (08:30→21:18)
[2019-11-10] MEDS: Fludrocortisone Acetate 0.1 MG TAB PO SCH (08:31)
[2019-11-10] MEDS: Polyethylene Glycol 3350 17 GM Packet PO SCH (08:32)
[2019-11-10] MEDS: Lisinopril 10 MG TAB PO SCH ×2 (08:46→21:18)
--- NOTE | 2019-11-10 09:07 | PRG ---
DATE OF SERVICE: 11/10/2019 SUBJECTIVE: Mr. Xavier Moore had a pretty good day. He has felt good. He was asymptomatic. However, PT and OT did not work with him, said that his blood pressure was too low. This occurred before he has a CLAUDE hose that was put on. With the ongoing tolvaptan, he continued to urinate a large amount of fluid that is over 3 L per day. This morning, he feels well. REVIEW OF SYSTEMS: GENERAL: There is no fever, chills, or productive cough. HEENT: There is no change in vision, hearing, or swallowing. He does have chronic hard of hearing. PULMONARY: There is no shortness of breath. CARDIAC: There is no chest pain, palpitations. GI: There is no nausea, vomiting, or diarrhea. : Please see HPI. MUSCULOSKELETAL: There are no complaints of muscle or joint pains. INTEGUMENT: No new skin breakdown. NEUROLOGIC: There are no new focal deficits or weaknesses. MEDICATIONS: Medications to have cardiac effects include, 1. Amlodipine 5 mg daily. 2. Apixaban 5 mg b.i.d. 3. Aspirin 81 mg daily. 4. Atorvastatin 80 mg q.h.s. 5. Carvedilol 12.5 mg q.12 hours. 6. Fludrocortisone 0.1 mg daily. 7. Hydrocortisone 10 mg in the morning, 5 mg in the afternoon. 8. Lisinopril 10 mg q.12 hours. 9. Magnesium oxide 400 mg b.i.d. 10. Potassium chloride 20 mEq b.i.d. 11. Sodium bicarb 600 mg p.o. b.i.d. 12. Tolvaptan 15 mg daily, he took it for 2 days. Telemetry was reviewed. He is in sinus rhythm. There was no concerning arrhythmia. PHYSICAL EXAMINATION: VITAL SIGNS: Reclining, his heart rate is 70, blood pressure 151/68. A set of orthostatics were measured. Recllining at 30 degrees, heart rate 71, blood pressure 177/79. After sitting up for 2 minutes, his heart rate remains 71, blood pressure 171/ 76. Consequently, there is no orthostatic hypotension from reclined to sitting. He stood up for about 2 minutes. His heart rate did not change, it is 72. His blood pressure dropped down to 94/50. He still has orthostatic hypotension, but as blood pressure over 90, he seemed to be asymptomatic. GENERAL: alert and conversational, comfortable reclining in bed HEENT: EOMI, oropharynx is benign, moist mucosa NECK : JVP at 8 cm with positive hepatojugular reflux LUNG: good air movement top 3/4 lung shabazz, chronic bibasilar velcro-like crackles due to emphysema CARDIAC: regular rate and rhythm, normal S1/S2, soft 1/6 holosystolic murmur at left sternal border, no gallop or rubs ABD: soft, non tender, positive bowel sounds LOWER EXTREMITIES: no edema, in CLAUDE hoses LABORATORY VALUES: Hemoglobin 11.5 and platelets 512. His chemistry showed sodium 139, potassium 4.4, chloride 110, bicarb 23, BUN 11, creatinine 0.74. Thus, his sodium has corrected. ASSESSMENT: 79-year-old gentleman has a complex set of problems. His sodium has corrected with tolvaptan and fludrocortisone and hydrocortisone combination. However, tolvaptan has produced large urine output greater than 3 L per day, so he would not be able to sustain this over time. So, tolvaptan needs to be paused or stopped and to see how he does. He still has orthostatic hypotension , but less so today. This could be due to the being intravascular low volume. So, stopping tolvaptan today can help. He has adrenal insufficiency. Combination of fludrocortisone and low-dose hydrocodone seemed to be helping. It will be another day or two before this combination to have the full effect. He does have paroxysmal atrial fibrillation. However, he has been in sinus rhythm for over 4 days now, so this is a good outcome. We will need to continue the carvedilol for blood pressure control and reduce the chance of atrial fibrillation. Please see the following for my recommendations. RECOMMENDATIONS: 1. Stop tolvaptan for now. 2. No IV fluids today, but liberalize fluid restriction to only 2.5 L per day. 3. We will see how he will do without tolvaptan and on low-dose hydrocortisone and fludrocortisone along with a blood pressure medication. It is hoped that this will be good enough. If not, he may have to take tolvaptan 3 times per week. 4. Please assist the patient with PT and OT while walking. He needs to regain his ability to walk. It has been a pleasure of taking care of Mr. Moore. If you have any questions, please give me a call. Job ID: [id number] MTDD
--- NOTE | 2019-11-10 11:58 | PDOC.HOSPP ---
- Subjective Encounter Date: 11/10/19 Encounter Time: 08:00 Subjective: no overnight events. this morning, feeling well and has no complaints. Drop of 70mmHg systolic when moving from supine to standing. Stopped tolvaptan as per cardiology. continue to monitor - Objective Vital Signs & Weight: Vital Signs (12 hours) Temp Pulse Resp BP BP BP Pulse Ox 11/10/19 08:15 134/62 101/52 L 11/10/19 08:00 98.1 F 71 16 168/74 H 97 11/10/19 04:00 98.4 F 70 17 151/68 H 96 Weight Admit Weight 176 lb Weight 170 lb 4.8 oz Most Recent Monitor Data Heart Rate from ECG 79 NIBP 157/73 NIBP BP-Mean 101 Respiration from ECG 9 SpO2 100 I&O: 11/09/19 11/10/19 11/11/19 06:59 06:59 06:59 Intake Total 1070 2909 Output Total 3375 3065 Balance -2305 -156 Result Diagrams: 11/10/19 03:18 11/10/19 03:18 Additional Labs: Accuchecks 11/10/19 11/10/19 11/09/19 11:09 06:39 16:47 POC Glucose 123 H 98 145 H 11/09/19 11:40 POC Glucose 110 Hospitalist ROS - Review of Systems Constitutional: denies: fever, chills, sweats Respiratory: denies: cough, shortness of breath, SOB with excertion, pleuritic pain Cardiovascular: denies: chest pain, palpitations, orthopnea, paroxysmal noc. dyspnea, edema, light headedness Gastrointestinal: denies: nausea, vomiting, abdominal pain, diarrhea, melena, hematochezia Genitourinary: denies: dysuria, frequency, hematuria Neurological: denies: weakness, incoordination, change in speech - Medication Medications: Active Medications Generic Name Dose Route Start Last Admin Trade Name Freq PRN Reason Stop Dose Admin Acetaminophen 650 mg 10/23/19 03:24 11/09/19 21:03 Tylenol PO 650 mg Q4H PRN Administration Headache/Fever/Mild Pain (1-3) Amlodipine Besylate 5 mg 11/07/19 12:00 11/09/19 11:50 Norvasc PO 5 mg 1200 JAELYN Administration Apixaban 5 mg 11/01/19 21:00 11/10/19 08:28 Eliquis PO 5 mg BID JAELYN Administration Aspirin 81 mg 11/03/19 09:00 11/10/19 08:29 Aspirin Chewable PO 81 mg DAILY JAELYN Administration Atorvastatin Calcium 80 mg 11/02/19 21:00 11/09/19 21:02 Lipitor PO 80 mg HS JAELYN Administration Bisacodyl 10 mg 10/23/19 03:26 10/28/19 09:33 Dulcolax PO 10 mg DAILYPRN PRN Administration Constipation Carvedilol 12.5 mg 11/07/19 09:00 11/10/19 08:29 Coreg PO 12.5 mg Q12HR JAELYN Administration Fludrocortisone Acetate 0.1 mg 11/07/19 09:00 11/10/19 08:31 Florinef PO 0.1 mg DAILY JAELYN Administration Hydrocortisone 10 mg 11/08/19 09:00 11/10/19 08:29 Cortef PO 10 mg QAM JAELYN Administration Hydrocortisone 5 mg 11/08/19 21:00 11/09/19 21:02 Cortef PO 5 mg QPM JAELYN Administration Labetalol HCl 10 mg 11/03/19 09:08 11/04/19 14:34 Normodyne SLOW IVP 10 mg Q4H PRN Administration SBP>180 Lisinopril 10 mg 11/07/19 09:00 11/10/19 08:46 Zestril PO Not Given Q12HR JAELYN Magnesium Oxide 400 mg 11/08/19 09:00 11/10/19 08:30 Magnesium Oxide PO 400 mg BID JAELYN Administration Pantoprazole Sodium 40 mg 11/03/19 09:00 11/10/19 08:30 Protonix PO 40 mg DAILY JAELYN Administration Polyethylene Glycol 17 gm 10/23/19 09:00 11/10/19 08:32 Miralax PO Not Given DAILY JAELYN Potassium Chloride 20 meq 11/07/19 09:00 11/10/19 08:26 K-Dur PO Not Given BID [facility] Sodium Bicarbonate 650 mg 11/09/19 09:00 11/10/19 08:29 Bicarbonate, Sodium PO 650 mg BID JAELYN Administration Sodium Chloride 10 ml 10/25/19 09:00 11/10/19 08:31 Flush - Normal Saline IVF 10 ml Q12HR JAELYN Administration - Exam General Appearance: NAD, awake alert Neck: no JVD Heart: RRR, no murmur, no gallops, no rubs Respiratory: CTAB, no wheezes, no rales, no ronchi Gastrointestinal: soft, non-tender, non-distended, normal bowel sounds Extremities: no edema Psychiatric: normal affect, normal behavior, A&O x 3 Hosp A/P - Plan #orthostatic hypotension -stopped tolvaptan, IVF per cardiology -continue fludro, hydro, compression stockings -check norepinephrine supine vs. standing; per lab, takes 3-6 days for lab to come back' -check blood pressure during valsalva #HTN -continue coreg, lisinopril, amlodipine per cardiology #Emphysema #pulmonary nodule -no symptoms of airway obstruction -follow as outpatient Disposition/PPx Full code GI PPx: No Ix DVT PPx: Lovenox
[2019-11-10] MEDS: Amlodipine 5 MG TAB PO SCH (12:43)
[2019-11-10] MEDS: Atorvastatin Calcium 40 MG TAB PO SCH (21:18)
[2019-11-11 04:30] LABS: #Eosinphils 0.1 thou/uL (0.0-0.7); #Lymphocytes 1.4 thou/uL (1.20-3.40); #Monocytes 0.5 thou/uL (0.11-0.59); #Neutrophils 6.2 thou/uL (1.40-6.50); %Basophils 0.6 % (0.0-1.0); %Eosinophils 1.7 % (0.0-10.0); %Lymphocytes 16.5 % (21.0-51.0); %Monocytes 5.8 % (0.0-10.0); %Neutrophils 75.4 % (42.0-75.0); Hemoglobin 11.8 g/dL (14.0-18.0); Mean Corpuscular HGB CONC 34.3 g/dL (32.0-36.0); Mean Corpuscular Hemoglobin 31.5 pg (27.0-31.0); Mean Corpuscular Volume 91.8 fL (78.0-98.0); Mean Platelet Volume 7.2 fL (7.4-10.4); Platelet Count 556 thou/uL (130-400); RBC Distribution Width 11.7 % (11.5-14.5); Red Blood Cell (RBC) Count 3.74 mill/uL (4.70-6.10); White Blood Cell (WBC) Count 8.2 thou/uL (4.8-10.8)
[2019-11-11 04:54] LABS: Anion Gap 12 mmol/L (10-20); BUN (Urea Nitrogen) 8 mg/dL (8.4-25.7); Calc. Creatinine Clearance 96 mL/min (70-130); Carbon Dioxide 21 mmol/L (23-31); Chloride 107 mmol/L (98-107); Estimated GFR-MDRD Greater than 90; Glucose 119 mg/dL (83-110); Magnesium 2.1 mg/dL (1.6-2.6); Sodium 136 mmol/L (136-145)
[2019-11-11] MEDS: Aspirin Chewable 81 MG TAB PO SCH (08:16)
[2019-11-11] MEDS: Hydrocortisone 10 mg Tablet PO SCH ×2 (08:16→21:53)
[2019-11-11] MEDS: Polyethylene Glycol 3350 17 GM Packet PO SCH (08:16)
[2019-11-11] MEDS: Sodium Bicarbonate Tab 325 MG TAB PO SCH ×2 (08:17→21:52)
[2019-11-11] MEDS: Carvedilol 6.25 MG TAB PO SCH ×2 (08:17→21:52)
[2019-11-11] MEDS: Magnesium Oxide 400 MG TAB PO SCH ×2 (08:17→21:52)
[2019-11-11] MEDS: Fludrocortisone Acetate 0.1 MG TAB PO SCH (08:18)
[2019-11-11] MEDS: Apixaban 5 MG TAB PO SCH ×2 (08:18→21:54)
[2019-11-11] MEDS: Potassium Chloride 20 MEQ TAB PO SCH (08:28)
[2019-11-11] MEDS ORDERED: Lisinopril 10 MG TAB PO SCH (08:30)
--- NOTE | 2019-11-11 09:23 | PDOC.HOSPP ---
- Subjective Encounter Date: 11/11/19 Encounter Time: 09:00 - Objective Vital Signs & Weight: Vital Signs (12 hours) Temp Pulse Resp BP BP Pulse Ox 11/11/19 07:45 97.9 F 68 16 182/77 H 97 11/11/19 04:00 97.7 F 73 16 169/79 H 97 Weight Admit Weight 176 lb Weight 169 lb Most Recent Monitor Data Heart Rate from ECG 79 NIBP 157/73 NIBP BP-Mean 101 Respiration from ECG 9 SpO2 100 I&O: 11/10/19 11/11/19 11/12/19 06:59 06:59 06:59 Intake Total 2909 1200 Output Total 3065 1400 Balance -156 -200 Result Diagrams: 11/11/19 09:30 11/11/19 03:52 Additional Labs: Accuchecks 11/11/19 11/10/19 11/10/19 04:59 21:18 16:34 POC Glucose 105 125 H 120 H 11/10/19 11/09/19 11:09 21:09 POC Glucose 123 H 116 H Hospitalist ROS - Medication Medications: Active Medications Generic Name Dose Route Start Last Admin Trade Name Freq PRN Reason Stop Dose Admin Acetaminophen 650 mg 10/23/19 03:24 11/09/19 21:03 Tylenol PO 650 mg Q4H PRN Administration Headache/Fever/Mild Pain (1-3) Apixaban 5 mg 11/01/19 21:00 11/11/19 08:18 Eliquis PO 5 mg BID JAELYN Administration Aspirin 81 mg 11/03/19 09:00 11/11/19 08:16 Aspirin Chewable PO 81 mg DAILY JAELYN Administration Atorvastatin Calcium 80 mg 11/02/19 21:00 11/10/19 21:18 Lipitor PO 80 mg HS JAELYN Administration Bisacodyl 10 mg 10/23/19 03:26 10/28/19 09:33 Dulcolax PO 10 mg DAILYPRN PRN Administration Constipation Carvedilol 12.5 mg 11/07/19 09:00 11/11/19 08:17 Coreg PO 12.5 mg Q12HR JAELYN Administration Fludrocortisone Acetate 0.1 mg 11/07/19 09:00 11/11/19 08:18 Florinef PO 0.1 mg DAILY JAELYN Administration Hydrocortisone 10 mg 11/08/19 09:00 11/11/19 08:16 Cortef PO 10 mg QAM JAELYN Administration Hydrocortisone 5 mg 11/08/19 21:00 11/10/19 21:18 Cortef PO 5 mg QPM JAELYN Administration Labetalol HCl 10 mg 11/03/19 09:08 11/04/19 14:34 Normodyne SLOW IVP 10 mg Q4H PRN Administration SBP>180 Magnesium Oxide 400 mg 11/08/19 09:00 11/11/19 08:17 Magnesium Oxide PO 400 mg BID JAELYN Administration Pantoprazole Sodium 40 mg 11/03/19 09:00 11/11/19 08:16 Protonix PO 40 mg DAILY JAELYN Administration Polyethylene Glycol 17 gm 10/23/19 09:00 11/11/19 08:16 Miralax PO 17 gm DAILY JAELYN Administration Potassium Chloride 20 meq 11/11/19 08:00 11/11/19 08:28 K-Dur PO Not Given QAM-WM JAELYN Sodium Bicarbonate 650 mg 11/09/19 09:00 11/11/19 08:17 Bicarbonate, Sodium PO 650 mg BID JAELYN Administration Sodium Chloride 10 ml 10/25/19 09:00 11/11/19 08:23 Flush - Normal Saline IVF 10 ml Q12HR JAELYN Administration Hosp A/P - Plan #orthostatic hypotension -stopped tolvaptan, IVF per cardiology -continue fludro, hydro, compression stockings -took norepinephrine (catechol) supine vs. standing. Standing should result at least 2 x norepi level. Per lab personnel, will take 3-6 days for test to come back -measure orthostatic hypotension daily at around 11am -tolvaptan as per cardiology #thrombocytosis started as inpatient likely due to corticosteroids, but will take blood smear #HTN -continue coreg, lisinopril, amlodipine per cardiology #Emphysema #pulmonary nodule -no symptoms of airway obstruction -follow as outpatient Disposition/PPx Full code GI PPx: No Ix DVT PPx: Lovenox
--- NOTE | 2019-11-11 09:44 | PRG ---
DATE OF SERVICE: 11/11/2019 SUBJECTIVE: Mr. Xavier Moore had a good day. He was able to participate with PT/OT and walked at least 300 feet. He was very pleased with that. He did not have any symptoms throughout the day. He believed that he drank enough and urinated enough. REVIEW OF SYSTEMS: GENERAL: There is no fever, chills, productive cough. HEENT: There is no change in vision, hearing, or swallowing. PULMONARY: There is no shortness of breath. CARDIAC: There is no palpitation, chest pains. GI: There is no nausea, vomiting, diarrhea. : He is able to urinate well. MUSCULOSKELETAL: There is no complaints of joint pain or back pain. INTEGUMENT: There is no complaint of breakdowns. NEUROLOGIC: There is no complaint of new focal deficits or weaknesses. CURRENT MEDICATIONS: His medications that have cardiac effect include: 1. Amlodipine 5 mg daily. 2. Apixaban 5 mg twice a day. 3. Aspirin 81 mg daily. 4. Atorvastatin 80 mg p.o. at bedtime. 5. Carvedilol 12.5 mg p.o. q.12 hours. 6. Fludrocortisone 0.1 mg daily in the morning. 7. Hydrocortisone 10 mg in the morning and 5 mg at night. 8. Lisinopril 10 mg q.12 hours. 9. Magnesium oxide 400 mg twice a day. PHYSICAL EXAMINATION: VITAL SIGNS: His orthostatics was measured. This occurred before he took his morning medications. At a reclining position, heart rate 71, blood pressure 176/81. At 2 minutes sitting up, his heart rate 71, blood pressure 176/78. At standing up after 2 minutes and walking few steps in place while hanging on to the walker, his heart rate 72, blood pressure 80/50. He was sat back down. His sitting heart rate was 72 with a blood pressure of 133/62. After feeling well, he stood back up again, after 2 minutes, his heart rate 72, blood pressure dropped down to 76/46. Then, had reclined again and after reclining, his heart rate reduced very slight down to 71, blood pressure went back up to 164/72. Consequently, he is very orthostatic from sitting to standing position without his fludrocortisone. GENERAL: He is alert and conversational, quite comfortable, reclining in bed. HEENT: Show EOMI. Oropharynx is benign with moist mucosa. NECK: His JVP is about 8 cm with negative hepatojugular reflux. LUNGS: Good air movement in bilateral upper lung shabazz; however, he has bibasilar Velcro-like crackles, which corresponds to emphysema. CARDIAC: Regular rate and rhythm with normal S1, S2. There is 2/6 holosystolic murmur at apex with radiation to the left axilla. ABDOMEN: Soft, nontender. Positive bowel sounds. EXTREMITIES: His lower extremities are without edema, but it is in compression stockings. LABORATORY DATA: Show white cell count 8.2, hemoglobin 11.8, platelets 556. His chemistry shows sodium 136, potassium 4, chloride 107, bicarbonate 21, BUN 8 , creatinine 0.68. ASSESSMENT: 79-year-old gentleman has a complex set of problems. His hyponatremia is being well controlled now. This is done by combination of fludrocortisone and hydrocortisone for moderate chronic adrenal insufficiency. 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 His volume status is better. He is not losing large amount of volume when he is not taking tolvaptan. Unfortunately, he is still orthostatic. It is good that he is able to maintain his blood pressure from reclined to sitting. This morning without his fludrocortisone, he is much orthostatic. Yesterday after fludrocortisone and hydrocortisone, he was able to walk 300 feet, so perhaps it will be important to have fludrocortisone and hydrocortisone on board. We will need to see how for this goes. 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 This is going to be difficult to deal with the current set of problems. We can increase his amlodipine slightly to account for this. Please see the following for my recommendations. RECOMMENDATIONS: 1. Continue with fludrocortisone 0.1 mg daily and hydrocortisone 10 mg in a.m. and 5 mg in p.m., this seemed to allow him to walk. 2. Please increase amlodipine slightly to 7.5 mg daily at noontime. Hopefully, this will bring down his supine hypertension. 3. Please do orthostatics about 2 to 3 hours after his morning medication to see the full effect of his medications. The morning orthostatics is completely without his medications, so it is probably the worst possible time. Please do a set of orthostatics about 2 to 3 hours after his morning medication. 4. He will likely need tolvaptan twice per week. We will not be given any tolvaptan today and continue to monitor his sodium. He may be need tolvaptan to be restarted tomorrow. If that is the case, he will need tolvaptan likely on Fridays and Mondays. 5. He still has some amount of metabolic acidosis, so sodium bicarb will need to be continued. 6. We will await results of catecholamine test. 7. If adrenal neoplasm is considered, please consider to just go ahead and do CT of the abdomen and pelvis now instead of waiting. 8. Please provide potassium 20 mEq oral daily. His potassium went down significantly without supplementation yesterday, so he will probably need daily doses of potassium supplement. It has been a pleasure taking care of Mr. Moore. If you have any questions, please give me a call. Job ID: [id number] [facility]
[2019-11-11 10:36] LABS: Eosinophils 2 % (0-10); Hemoglobin 11.5 g/dL (14.0-18.0); Lymphocytes 22 % (21-51); MDiff Complete? YES; Mean Corpuscular Hemoglobin 30.7 pg (27.0-31.0); Mean Platelet Volume 6.9 fL (7.4-10.4); Monocytes 7 % (0-10); Neutrophil 68 % (42-75); Platelet Count 518 thou/uL (130-400); Platelet Morphology Comment Appears Increased; RBC Distribution Width 11.7 % (11.5-14.5); RBC Morphology Normal; Reactive Lymphocytes 2 % (0-10); Red Blood Cell (RBC) Count 3.74 mill/uL (4.70-6.10); White Blood Cell (WBC) Count 7.8 thou/uL (4.8-10.8)
[2019-11-11 12:20] VITALS: BMI 24.2
[2019-11-11] MEDS: Amlodipine 5 MG TAB PO SCH (12:40)
[2019-11-11] MEDS: Lisinopril 10 MG TAB PO SCH (17:20)
[2019-11-11] MEDS: Atorvastatin Calcium 40 MG TAB PO SCH (21:52)
[2019-11-12 04:32] LABS: #Basophils 0.1 thou/uL (0.0-0.2); #Eosinphils 0.2 thou/uL (0.0-0.7); #Lymphocytes 1.8 thou/uL (1.20-3.40); #Monocytes 0.5 thou/uL (0.11-0.59); #Neutrophils 5.3 thou/uL (1.40-6.50); %Basophils 0.8 % (0.0-1.0); %Eosinophils 2.3 % (0.0-10.0); %Lymphocytes 22.6 % (21.0-51.0); %Monocytes 6.4 % (0.0-10.0); %Neutrophils 67.9 % (42.0-75.0); Hemoglobin 11.8 g/dL (14.0-18.0); Mean Corpuscular HGB CONC 33.7 g/dL (32.0-36.0); Mean Corpuscular Volume 91.7 fL (78.0-98.0); Mean Platelet Volume 7.2 fL (7.4-10.4); Platelet Count 546 thou/uL (130-400); RBC Distribution Width 11.7 % (11.5-14.5); White Blood Cell (WBC) Count 7.7 thou/uL (4.8-10.8)
[2019-11-12] MEDS: Lisinopril 10 MG TAB PO SCH ×2 (05:59→17:45)
[2019-11-12 07:55] LABS: Anion Gap 9 mmol/L (10-20); BUN (Urea Nitrogen) 7 mg/dL (8.4-25.7); Calc. Creatinine Clearance 94 mL/min (70-130); Calcium 8.1 mg/dL (7.8-10.44); Carbon Dioxide 25 mmol/L (23-31); Chloride 105 mmol/L (98-107); Estimated GFR-MDRD Greater than 90; Glucose 99 mg/dL (83-110); Magnesium 2.1 mg/dL (1.6-2.6); Potassium 3.7 mmol/L (3.5-5.1); Sodium 135 mmol/L (136-145)
--- NOTE | 2019-11-12 08:56 | PRG ---
DATE OF SERVICE: 11/12/2019 SERVICE: [facility]. SUBJECTIVE: Mr. Moore had a good day. He was asymptomatic. He has had a good visit with the . Amlodipine was titrated up to 7.5 mg daily. The blood pressure came down some and then it was fairly even throughout the day. However , I could not find any orthostatic measurements after his morning medications. He said he did not work with PT OT because his came and visited him and they did not want to disturb his visitation with his . REVIEW OF SYSTEMS: GENERAL: There is no fever, chills, or productive cough. HEENT: There is no changes in vision, hearing, or swallowing. He does have long-term difficulty with hearing. PULMONARY: There is no shortness of breath. CARDIAC: There are no palpitation, chest pain, or syncope. GASTROINTESTINAL: There is no nausea, vomiting, or diarrhea. GENITOURINARY: He is urinating well. MUSCULOSKELETAL: There is no joint or muscle pains. INTEGUMENT: There is no skin breakdown. NEUROLOGIC: There are no new focal deficits or weaknesses. MEDICATIONS: His medications that have cardiac effects include; 1. Amlodipine 7.5 mg at noon. 2. Apixaban at 5 mg twice a day. 3. Aspirin 81 mg daily. 4. Atorvastatin 80 mg at bedtime. 5. Carvedilol at 12.5 mg q.12 hours. 6. Fludrocortisone 0.1 mg daily. 7. Hydrocortisone 10 mg in the morning and 5 mg in the afternoon. 8. Lisinopril 10 mg q.12 hours. 9. Potassium chloride 20 mEq daily. 10. Sodium bicarbonate 650 mg b.i.d. Telemetry was reviewed. He is in sinus rhythm. There is no concerning arrhythmia. PHYSICAL EXAMINATION: VITAL SIGNS: Reclining in bed was blood pressure of 147/67. His orthostatics were taken by me. While reclining at 30 degrees is 167/78 with heart rate of 68. After sitting up for about 3 minutes; his heart rate 68, blood pressure was 162/75. Consequently, there are no orthostatics from reclining to sitting. After standing up for about 2 minutes and taking a few steps in place, his blood pressure dropped down to 74/45, his heart rate is still steady at 70. After sitting down for about a minute, his blood pressure roxie to 109/57, but his heart rate was still the same at 71. GENERAL: He is alert and conversational without any acute distress, relaxed. HEENT: EOMI. Oropharynx is benign with moist mucosa. NECK: JVP is about 8 cm with positive hepatojugular reflux. PULMONARY: There is good air movement bilaterally. There are chronic slight Velcro crackles at bilateral bases. This corresponds to emphysema. CARDIAC: Regular rate and rhythm with normal S1, S2. There is 2/6 holosystolic murmur at the apex with slight radiation to the left axilla. ABDOMEN: Soft, nontender. Positive bowel sounds. EXTREMITIES: His lower extremities are without edema. LABORATORY STUDIES: There are no new chemistries today. This needs to be done stat to find out what the outcome is. ASSESSMENT: 79-year-old gentleman is stabilizing overall of his complex set of problem. He does have paroxysmal atrial fibrillation, but he has been in sinus rhythm for many days now, combination of carvedilol 12.[address] and Eliquis at 5 mg twice a day will prevent stroke. He does have adrenal insufficiency. He seemed to be supplemented sufficiently with fludrocortisone at 0.1 mg daily and hydrocortisone 10 mg in a.m., 5 mg in p.m. This combination will also help with orthostatic hypotension. It also help him with sodium retention. He also had hyponatremia, this can also due to partially of SIADH. Tolvaptan has helped greatly. However, tolvaptan caused a large amount of diuresis that could not be sustained. Currently, we are trying to determine what the frequency of tolvaptan that he needs. We will need to see what his sodium value today. Please see the following for my recommendations. RECOMMENDATIONS: 1. Please do stat basic metabolic panel, magnesium. The sodium and potassium values will govern the frequency of tolvaptan and amount of potassium supplement. This is especially crucial for the sodium. 2. Continue current regimen of adrenal supplementation of low-dose hydrocortisone and fludrocortisone 0.1 mg daily. 3. Continue with carvedilol 12.5 mg twice a day and Eliquis 5 mg twice a day. 4. For his supine hypertension and renal protection, he will need to continue with lisinopril 10 mg twice a day and for now, amlodipine 7.5 mg maggy. At a future time, Amlodipine may need to be titrated up to 10 mg daily, however, we must go slow. 5. He will need outpatient followup with improvement director who are willing to come in inpatient. His best chance of finding an improvement director who will see him inpatient will be from [facility]. He will also need outpatient pulmonary followup for development of emphysema with smoking for last 35 years. 6. He will likely need home health care upfront to make sure he is taking his medicine correctly and is having blood pressure measurement. 7. He will need to measure blood pressure and weigh himself daily at home. 8. Please also put on CLAUDE hoses during the day as that would help him to sustain his blood pressure when standing and walking. Then, take the compression stockings off at night time. 9. Please ensure that the patient participate with PT, OT, and walking. This is important for him to regain function. It has been a pleasure taking care of Mr. Xavier Moore. If you have any questions, please give me a call. Job ID: [id number] [facility]
[2019-11-12] MEDS: Polyethylene Glycol 3350 17 GM Packet PO SCH (09:17)
[2019-11-12] MEDS: Apixaban 5 MG TAB PO SCH ×2 (09:18→21:30)
[2019-11-12] MEDS: Magnesium Oxide 400 MG TAB PO SCH ×2 (09:18→21:30)
[2019-11-12] MEDS: Sodium Bicarbonate Tab 325 MG TAB PO SCH ×2 (09:18→21:30)
[2019-11-12] MEDS: Aspirin Chewable 81 MG TAB PO SCH (09:18)
[2019-11-12] MEDS: Hydrocortisone 10 mg Tablet PO SCH ×2 (09:18→21:30)
[2019-11-12] MEDS: Potassium Chloride 20 MEQ TAB PO SCH (09:18)
[2019-11-12] MEDS: Carvedilol 6.25 MG TAB PO SCH ×2 (09:18→21:29)
[2019-11-12] MEDS: Fludrocortisone Acetate 0.1 MG TAB PO SCH (09:20)
--- NOTE | 2019-11-12 13:06 | PDOC.HOSPP ---
- Subjective Encounter Date: 11/12/19 Encounter Time: 09:00 Subjective: No overnight events. this morning, significant orthostatic hypotension but later during the day at around 11am, significant improvement. Ambulating on floor with no symptoms. - Objective Vital Signs & Weight: Vital Signs (12 hours) Temp Pulse Pulse Pulse Pulse Resp BP 11/12/19 11:00 97.7 F 68 14 11/12/19 10:07 73 69 70 11/12/19 09:18 130/70 11/12/19 08:38 98.2 F 70 14 11/12/19 07:40 11/12/19 04:00 98.2 F 73 20 BP BP BP BP BP BP BP 11/12/19 11:00 160/72 H 141/63 H 87/54 L 126/58 L 11/12/19 10:07 115/55 L 92/50 L 136/61 11/12/19 09:18 11/12/19 08:38 147/65 H 11/12/19 07:40 11/12/19 04:00 147/67 H Pulse Ox 11/12/19 11:00 97 11/12/19 10:07 11/12/19 09:18 11/12/19 08:38 97 11/12/19 07:40 97 11/12/19 04:00 97 Weight Admit Weight 176 lb Weight 169 lb Most Recent Monitor Data Heart Rate from ECG 79 NIBP 157/73 NIBP BP-Mean 101 Respiration from ECG 9 SpO2 100 I&O: 11/11/19 11/12/19 11/13/19 06:59 06:59 06:59 Intake Total 1200 1440 240 Output Total 1400 800 Balance -200 640 240 Result Diagrams: 11/12/19 04:01 11/12/19 07:23 Additional Labs: Accuchecks 11/12/19 11/12/19 11/11/19 10:41 05:43 20:34 POC Glucose 126 H 95 147 H 11/11/19 17:20 POC Glucose 123 H Hospitalist ROS - Review of Systems Constitutional: denies: fever, chills, sweats Respiratory: denies: cough, dry, shortness of breath Cardiovascular: denies: chest pain, palpitations, orthopnea Gastrointestinal: denies: nausea, vomiting, abdominal pain Genitourinary: denies: dysuria, incontinence, hematuria - Medication Medications: Active Medications Generic Name Dose Route Start Last Admin Trade Name Freq PRN Reason Stop Dose Admin Acetaminophen 650 mg 10/23/19 03:24 11/09/19 21:03 Tylenol PO 650 mg Q4H PRN Administration Headache/Fever/Mild Pain (1-3) Amlodipine Besylate 7.5 mg 11/11/19 12:00 11/11/19 12:40 Norvasc PO 7.5 mg 1200 JAELYN Administration Apixaban 5 mg 11/01/19 21:00 11/12/19 09:18 Eliquis PO 5 mg BID JAELYN Administration Aspirin 81 mg 11/03/19 09:00 11/12/19 09:18 Aspirin Chewable PO 81 mg DAILY JAELYN Administration Atorvastatin Calcium 80 mg 11/02/19 21:00 11/11/19 21:52 Lipitor PO 80 mg HS JAELYN Administration Bisacodyl 10 mg 10/23/19 03:26 10/28/19 09:33 Dulcolax PO 10 mg DAILYPRN PRN Administration Constipation Carvedilol 12.5 mg 11/07/19 09:00 11/12/19 09:18 Coreg PO 12.5 mg Q12HR JAELYN Administration Fludrocortisone Acetate 0.1 mg 11/07/19 09:00 11/12/19 09:20 Florinef PO 0.1 mg DAILY JAELYN Administration Hydrocortisone 10 mg 11/08/19 09:00 11/12/19 09:18 Cortef PO 10 mg QAM JAELYN Administration Hydrocortisone 5 mg 11/08/19 21:00 11/11/19 21:53 Cortef PO 5 mg QPM JAELYN Administration Labetalol HCl 10 mg 11/03/19 09:08 11/04/19 14:34 Normodyne SLOW IVP 10 mg Q4H PRN Administration SBP>180 Lisinopril 10 mg 11/11/19 18:00 11/12/19 05:59 Zestril PO 10 mg 0600,1800 JAELYN Administration Magnesium Oxide 400 mg 11/08/19 09:00 11/12/19 09:18 Magnesium Oxide PO 400 mg BID JAELYN Administration Pantoprazole Sodium 40 mg 11/03/19 09:00 11/12/19 09:18 Protonix PO 40 mg DAILY JAELYN Administration Polyethylene Glycol 17 gm 10/23/19 09:00 11/12/19 09:17 Miralax PO 17 gm DAILY JAELYN Administration Potassium Chloride 20 meq 11/11/19 08:00 11/12/19 09:18 K-Dur PO 20 meq QAM-WM JAELYN Administration Sodium Bicarbonate 650 mg 11/09/19 09:00 11/12/19 09:18 Bicarbonate, Sodium PO 650 mg BID JAELYN Administration Sodium Chloride 10 ml 10/25/19 09:00 11/12/19 09:24 Flush - Normal Saline IVF 10 ml Q12HR JAELYN Administration - Exam General Appearance: NAD, awake alert Neck: no JVD Heart: RRR, no murmur, no gallops, no rubs Respiratory: CTAB, no wheezes, no rales, no ronchi Gastrointestinal: soft, non-tender, non-distended, normal bowel sounds Extremities: no edema Psychiatric: normal affect, normal behavior, A&O x 3 Hosp A/P - Plan #orthostatic hypotension -episodic tolvaptan as per cardiology -continue fludro, hydro, compression stockings -took norepinephrine (catechol) supine vs. standing. Standing should result at least 2 x norepi level. Per lab personnel, will take 3-6 days for test to come back -ortho better and ambulating without symptoms (11/11); updated Dr. Howe who said patient may be able to be discharged in near future -measure orthostatic hypotension daily at around 11am -tolvaptan as per cardiology -Endocrinology outpatient appoitnemtn should be arranged as soon as possible #thrombocytosis started as inpatient likely due to corticosteroids #HTN -continue coreg, lisinopril, amlodipine per cardiology #Emphysema #pulmonary nodule -no symptoms of airway obstruction -follow as outpatient with pulmonology Disposition/PPx Full code GI PPx: No Ix DVT PPx: Lovenox
[2019-11-12] MEDS: Amlodipine 5 MG TAB PO SCH (13:34)
[2019-11-12] MEDS: Atorvastatin Calcium 40 MG TAB PO SCH (21:30)
--- NOTE | 2019-11-12 22:22 | CON ---
NEUROLOGY CONSULTATION DATE OF CONSULTATION: 11/12/2019 REASON FOR CONSULTATION: Altered mental status. HISTORY OF PRESENT ILLNESS: Mr. Moore is a 79-year-old male with past medical history significant for type 2 diabetes mellitus, hypertension, presented with altered mental status on 10/23/2019 5 to 6 days, altered mental status continued. The patient has been followed by Cardiology . Dr. Jim Howe requested Neurology for consult because of persistent altered mental status, which is waxing and waning. In the emergency room, head CT was done, which did not reveal any acute findings. An MRI of the brain was also done during this admission, which was reviewed and was negative for acute intracranial pathology. He does have symptomatic hyponatremia, which has been treated by the primary team. The patient denies nausea, vomiting , headache, chest pain, abdominal pain, recent illness, COVID exposure, focal weakness, focal paresthesias, and denies any memory issues. REVIEW OF SYSTEMS: All 14 systems were reviewed and were negative except the pertinent positive and negative mentioned in the HPI. HOME MEDICATIONS: 1. Metformin 500 mg once daily. 2. Atorvastatin 20 mg once daily. 3. Vitamin D2 50,000 units once a month. 4. Aspirin 81 mg daily. PAST MEDICAL HISTORY: Hypertension and diabetes mellitus. PAST SURGICAL HISTORY: Cataract surgery. FAMILY HISTORY: No pertinent family history. SOCIAL HISTORY: The patient is a former smoker. Denies smoking, illegal drug abuse. - Objective Vital Signs & Weight: Vital Signs (12 hours) Temp Pulse Pulse Pulse Pulse Resp BP 11/12/19 11:00 97.7 F 68 14 11/12/19 10:07 73 69 70 11/12/19 09:18 130/70 11/12/19 08:38 98.2 F 70 14 11/12/19 07:40 11/12/19 04:00 98.2 F 73 20 BP BP BP BP BP BP BP 11/12/19 11:00 160/72 H 141/63 H 87/54 L 126/58 L 11/12/19 10:07 115/55 L 92/50 L 136/61 11/12/19 09:18 11/12/19 08:38 147/65 H 11/12/19 07:40 11/12/19 04:00 147/67 H Pulse Ox 11/12/19 11:00 97 11/12/19 10:07 11/12/19 09:18 08/21/20 08:38 97 11/12/19 07:40 97 11/12/19 04:00 97 Weight Admit Weight 176 lb Weight 169 lb Most Recent Monitor Data Heart Rate from ECG 79 NIBP 157/73 NIBP BP-Mean 101 Respiration from ECG 9 SpO2 100 I&O: 11/11/19 11/12/19 11/13/19 06:59 06:59 06:59 Intake Total 1200 1440 240 Output Total 1400 800 Balance -200 640 240 Additional Labs: Accuchecks 11/12/19 11/12/19 11/11/19 10:41 05:43 20:34 POC Glucose 126 H 95 147 H 11/11/19 17:20 POC Glucose 123 H Active Medications Generic Name Dose Route Start Last Admin Trade Name Freq PRN Reason Stop Dose Admin Acetaminophen 650 mg 10/23/19 03:24 11/09/19 21:03 Tylenol PO 650 mg Q4H PRN Administration Headache/Fever/Mild Pain (1-3) Amlodipine Besylate 7.5 mg 11/11/19 12:00 11/11/19 12:40 Norvasc PO 7.5 mg 1200 JAELYN Administration Apixaban 5 mg 11/01/19 21:00 11/12/19 09:18 Eliquis PO 5 mg BID JAELYN Administration Aspirin 81 mg 11/03/19 09:00 11/12/19 09:18 Aspirin Chewable PO 81 mg DAILY JAELYN Administration Atorvastatin Calcium 80 mg 11/02/19 21:00 11/11/19 21:52 Lipitor PO 80 mg HS JAELYN Administration Bisacodyl 10 mg 10/23/19 03:26 10/28/19 09:33 Dulcolax PO 10 mg DAILYPRN PRN Administration Constipation Carvedilol 12.5 mg 11/07/19 09:00 11/12/19 09:18 Coreg PO 12.5 mg Q12HR JAELYN Administration Fludrocortisone Acetate 0.1 mg 11/07/19 09:00 11/12/19 09:20 Florinef PO 0.1 mg DAILY JAELYN Administration Hydrocortisone 10 mg 11/08/19 09:00 11/12/19 09:18 Cortef PO 10 mg QAM JAELYN Administration Hydrocortisone 5 mg 11/08/19 21:00 11/11/19 21:53 Cortef PO 5 mg QPM JAELYN Administration Labetalol HCl 10 mg 11/03/19 09:08 11/04/19 14:34 Normodyne SLOW IVP 10 mg Q4H PRN Administration SBP>180 Lisinopril 10 mg 11/11/19 18:00 11/12/19 05:59 Zestril PO 10 mg 0600,1800 JAELYN Administration Magnesium Oxide 400 mg 11/08/19 09:00 11/12/19 09:18 Magnesium Oxide PO 400 mg BID JAELYN Administration Pantoprazole Sodium 40 mg 11/03/19 09:00 11/12/19 09:18 Protonix PO 40 mg DAILY JAELYN Administration Polyethylene Glycol 17 gm 10/23/19 09:00 11/12/19 09:17 Miralax PO 17 gm DAILY JAELYN Administration Potassium Chloride 20 meq 11/11/19 08:00 11/12/19 09:18 K-Dur PO 20 meq QAM-WM JAELYN Administration Sodium Bicarbonate 650 mg 11/09/19 09:00 11/12/19 09:18 Bicarbonate, Sodium PO 650 mg BID JAELYN Administration Sodium Chloride 10 ml 10/25/19 09:00 11/12/19 09:24 Flush - Normal Saline IVF 10 ml Q12HR JAELYN Administration PHYSICAL EXAMINATION: CVS: Regular rate and rhythm. CHEST: Clear. ABDOMEN: Soft. NECK: Supple. NEUROLOGICAL: Mental status, the patient is alert and oriented x3. Speech is clear, somewhat agitated, and did not cooperate with the testing. According to him, there is nothing wrong with him. Cranial nerves 2 through 12 intact. Motor, muscle tone and bulk are normal. Moving all 4 extremities equally and symmetrically. Sensory, withdraws to nailbed pressure bilaterally. Cerebellar, finger-nose testing intact. Gait deferred due to the patient's safety reasons. DATA REVIEWED: Initial labs were significant for hyponatremia. ASSESSMENT AND PLAN: Mr. Xavier Moore is a 79-year-old male, who has been consulted on the request of Cardiology Service because of persistent altered mental status. The patient is alert and oriented x3. There has been concern about waxing and waning mental status. MRI of the brain reviewed, which was negative for acute intracranial pathology. However, cortical irritability cannot be ruled out, EEG was offered to the patient, which he declined because of his insurance issues. Per the patient, there is nothing wrong with him and he does not want to pursue any further testing. Continue medical management per primary team. We are happy to order further testing once the patient is agreeable. Thank you for the consult. Plan discussed with the patient and also with the consulting provider, Dr. Hoew. Job ID: [id number] MTDSe
[2019-11-13 04:52] LABS: #Basophils 0.1 thou/uL (0.0-0.2); #Eosinphils 0.2 thou/uL (0.0-0.7); #Lymphocytes 1.8 thou/uL (1.20-3.40); #Monocytes 0.6 thou/uL (0.11-0.59); #Neutrophils 6.2 thou/uL (1.40-6.50); %Basophils 0.6 % (0.0-1.0); %Eosinophils 2.5 % (0.0-10.0); %Lymphocytes 20.3 % (21.0-51.0); %Monocytes 6.3 % (0.0-10.0); %Neutrophils 70.3 % (42.0-75.0); Hemoglobin 11.6 g/dL (14.0-18.0); Mean Corpuscular HGB CONC 32.9 g/dL (32.0-36.0); Mean Corpuscular Hemoglobin 30.1 pg (27.0-31.0); Mean Corpuscular Volume 91.6 fL (78.0-98.0); Mean Platelet Volume 7.2 fL (7.4-10.4); Platelet Count 554 thou/uL (130-400); RBC Distribution Width 11.7 % (11.5-14.5); Red Blood Cell (RBC) Count 3.86 mill/uL (4.70-6.10); White Blood Cell (WBC) Count 8.8 thou/uL (4.8-10.8)
[2019-11-13 05:16] LABS: Anion Gap 10 mmol/L (10-20); BUN (Urea Nitrogen) 7 mg/dL (8.4-25.7); Calc. Creatinine Clearance 90 mL/min (70-130); Calcium 8.1 mg/dL (7.8-10.44); Carbon Dioxide 24 mmol/L (23-31); Chloride 104 mmol/L (98-107); Estimated GFR-MDRD Greater than 90; Glucose 102 mg/dL (83-110); Magnesium 2.1 mg/dL (1.6-2.6); Potassium 3.7 mmol/L (3.5-5.1); Sodium 134 mmol/L (136-145)
[2019-11-13] MEDS: Lisinopril 10 MG TAB PO SCH ×2 (05:49→17:53)
[2019-11-13] MEDS: Magnesium Oxide 400 MG TAB PO SCH ×2 (09:14→21:16)
[2019-11-13] MEDS: Polyethylene Glycol 3350 17 GM Packet PO SCH (09:15)
[2019-11-13] MEDS: Carvedilol 6.25 MG TAB PO SCH ×2 (09:15→21:16)
[2019-11-13] MEDS: Hydrocortisone 10 mg Tablet PO SCH ×2 (09:15→21:17)
[2019-11-13] MEDS: Sodium Bicarbonate Tab 325 MG TAB PO SCH ×2 (09:16→21:17)
[2019-11-13] MEDS: Apixaban 5 MG TAB PO SCH ×2 (09:16→21:17)
[2019-11-13] MEDS: Aspirin Chewable 81 MG TAB PO SCH (09:16)
[2019-11-13] MEDS: Potassium Chloride 20 MEQ TAB PO SCH (09:16)
[2019-11-13] MEDS: Fludrocortisone Acetate 0.1 MG TAB PO SCH (09:17)
[2019-11-13] MEDS ORDERED: Tolvaptan 15 MG TAB PO SCH (09:30)
--- NOTE | 2019-11-13 11:18 | PDOC.HOSPP ---
- Subjective Encounter Date: 11/13/19 Encounter Time: 09:45 Subjective: no c/o dizziness, chest pain or sob says he ambulated twice yesterday in hallway, uses walker off and on no chest pain or palp no abd pain, nausea or diarrhea says he feels good from last 2 days now - Objective Vital Signs & Weight: Vital Signs (12 hours) Temp Pulse Resp BP BP Pulse Ox 11/13/19 11:05 68 17 133/60 98 11/13/19 08:00 97.6 F 68 18 175/75 H 96 11/13/19 05:49 130/70 11/13/19 03:47 98.7 F 69 22 H 139/65 98 Weight Admit Weight 176 lb Weight 169 lb Most Recent Monitor Data Heart Rate from ECG 79 NIBP 157/73 NIBP BP-Mean 101 Respiration from ECG 9 SpO2 100 I&O: 11/12/19 11/13/19 11/14/19 06:59 06:59 06:59 Intake Total 1440 1220 Output Total 800 1415 Balance 640 -195 Result Diagrams: 11/13/19 04:38 11/13/19 04:37 Additional Labs: Accuchecks 11/13/19 11/12/19 11/12/19 05:39 20:26 16:29 POC Glucose 95 130 H 118 H 11/12/19 10:41 POC Glucose 126 H Hospitalist ROS - Medication Medications: Active Medications Generic Name Dose Route Start Last Admin Trade Name Freq PRN Reason Stop Dose Admin Acetaminophen 650 mg 10/23/19 03:24 11/09/19 21:03 Tylenol PO 650 mg Q4H PRN Administration Headache/Fever/Mild Pain (1-3) Amlodipine Besylate 7.5 mg 11/11/19 12:00 11/12/19 13:34 Norvasc PO 7.5 mg 1200 JAELYN Administration Apixaban 5 mg 11/01/19 21:00 11/13/19 09:16 Eliquis PO 5 mg BID JAELYN Administration Aspirin 81 mg 11/03/19 09:00 11/13/19 09:16 Aspirin Chewable PO 81 mg DAILY JAELYN Administration Atorvastatin Calcium 80 mg 11/02/19 21:00 11/12/19 21:30 Lipitor PO 80 mg HS JAELYN Administration Bisacodyl 10 mg 10/23/19 03:26 10/28/19 09:33 Dulcolax PO 10 mg DAILYPRN PRN Administration Constipation Carvedilol 12.5 mg 11/07/19 09:00 11/13/19 09:15 Coreg PO 12.5 mg Q12HR JAELYN Administration Fludrocortisone Acetate 0.1 mg 11/07/19 09:00 11/13/19 09:17 Florinef PO 0.1 mg DAILY JAELYN Administration Hydrocortisone 10 mg 11/08/19 09:00 11/13/19 09:15 Cortef PO 10 mg QAM JAELYN Administration Hydrocortisone 5 mg 11/08/19 21:00 11/12/19 21:30 Cortef PO 5 mg QPM JAELYN Administration Labetalol HCl 10 mg 11/03/19 09:08 11/04/19 14:34 Normodyne SLOW IVP 10 mg Q4H PRN Administration SBP>180 Lisinopril 10 mg 11/11/19 18:00 11/13/19 05:49 Zestril PO 10 mg 0600,1800 JAELYN Administration Magnesium Oxide 400 mg 11/08/19 09:00 11/13/19 09:14 Magnesium Oxide PO 400 mg BID JAELYN Administration Pantoprazole Sodium 40 mg 11/03/19 09:00 11/13/19 09:16 Protonix PO 40 mg DAILY JAELYN Administration Polyethylene Glycol 17 gm 10/23/19 09:00 11/13/19 09:15 Miralax PO Not Given DAILY JAELYN Potassium Chloride 20 meq 11/11/19 08:00 11/13/19 09:16 K-Dur PO 20 meq QAM-WM JAELYN Administration Sodium Bicarbonate 650 mg 11/09/19 09:00 11/13/19 09:16 Bicarbonate, Sodium PO 650 mg BID JAELYN Administration Sodium Chloride 10 ml 10/25/19 09:00 11/12/19 21:33 Flush - Normal Saline IVF 10 ml Q12HR JAELYN Administration Tolvaptan 15 mg 11/13/19 09:30 11/13/19 10:57 Samsca PO 11/13/19 11:30 15 mg NOW JAELYN Administration - Exam General Appearance: awake alert Eye: PERRL, anicteric sclera ENT: no oropharyngeal lesions, moist mucosa Neck: supple, no JVD Heart: RRR, no murmur Respiratory: no wheezes, no rales Gastrointestinal: soft, non-tender, non-distended, normal bowel sounds Extremities: no cyanosis, no edema Neurological: cranial nerve grossly intact, no focal deficits Psychiatric: normal affect, A&O x 3 Hosp A/P (1) Hyponatremia Code(s): E87.1 - HYPO-OSMOLALITY AND HYPONATREMIA Status: Acute (2) Metabolic encephalopathy Code(s): G93.41 - METABOLIC ENCEPHALOPATHY Status: Acute (3) Emphysema lung Code(s): J43.9 - EMPHYSEMA, UNSPECIFIED Status: Chronic Qualifiers: Emphysema type: unspecified Qualified Code(s): J43.9 - Emphysema, unspecified (4) Normocytic anemia Code(s): D64.9 - ANEMIA, UNSPECIFIED Status: Chronic (5) Orthostatic hypotension Code(s): I95.1 - ORTHOSTATIC HYPOTENSION Status: Chronic (6) Dyslipidemia Code(s): E78.5 - HYPERLIPIDEMIA, UNSPECIFIED Status: Chronic (7) Hypertension Code(s): I10 - ESSENTIAL (PRIMARY) HYPERTENSION Status: Chronic Qualifiers: Hypertension type: essential hypertension Qualified Code(s): I10 - Essential (primary) hypertension - Plan is stable on current meds, d/w dc home if HH is arranged, likely tomorrow, d/w CM or might benefit from dizzy and balance outpt rehab is on hydrocortisone 10mg in am and 5mg in pm, florinef 0.1mg daily continue norvasc 7.5mg at noon, lisinopril 10mg bid, coreg 12.5mg bid, asp, eliquis, tolvaptan on tues/sat and soda bicarb he will need close follow up with , pcp and likely for off and on confusion for further w/u including autonomic dysfunction as well. Plan d/w patient, he lives with his , his PCP is .
[2019-11-13] MEDS: Amlodipine 5 MG TAB PO SCH (13:37)
--- NOTE | 2019-11-13 16:38 | PRG ---
DATE OF SERVICE: 11/13/2019 SERVICE: Advanced Heart Failure Cardiology Service SUBJECTIVE: Mr. Moore had an excellent day. He felt good yesterday. He was able to ambulate 410 feet three times, first time with PT, second time with OT, and third time with another PT personnel. He did not have any syncope or feeling faint during those processes. He was quite pleased. REVIEW OF SYSTEMS: GENERAL: There is no fever, chills, or productive cough. HEENT: There is no change in vision, hearing, or swallowing. PULMONARY: There is no shortness of breath. CARDIAC: There are no complaints of palpitation or chest pain. GI: There is no nausea, vomiting, or diarrhea. : He is urinating normally. MUSCULOSKELETAL: There are no complaints of severe joint or muscle pains. INTEGUMENT: There is no skin breakdown. NEUROLOGIC: There are no complaints of focal deficits or weaknesses. MEDICATIONS: Medications that have cardiovascular effect include, 1. Amlodipine 7.5 mg daily. 2. Apixaban 5 mg twice a day. 3. Atorvastatin 80 mg at bedtime. 4. Carvedilol 12.5 mg q.12 hours. 5. Fludrocortisone 0.1 mg daily. 6. Hydrocortisone 10 mg in the morning and 5 mg in the afternoon. 7. Lisinopril 10 mg twice a day. 8. Magnesium oxide 400 mg twice a day. 9. Potassium chloride 20 mEq daily. 10. Sodium bicarb 650 mg b.i.d. Telemetry was reviewed. The patient is in sinus rhythm. There is no recurrence of concerning arrhythmia. PHYSICAL EXAMINATION: VITAL SIGNS: Heart rate 69, blood pressure 130/70. GENERAL: He is alert, conversational, relaxing, reclining in bed without any distress. HEENT: EOMI with benign oropharynx. Moist mucosa. NECK: JVP is about 8 cm with positive hepatojugular reflux. PULMONARY: There is good air movement bilaterally. There is faint bibasilar crackles that are Velcro like. This corresponds with emphysema. CARDIAC: Regular rate and rhythm with normal S1, S2. There is faint 1/6 holosystolic murmur at the apex. ABDOMEN: Soft, nontender. Positive bowel sounds. EXTREMITIES: His lower extremities are without edema. LABORATORY VALUES: White cell count 8.8, hemoglobin 11.6, platelets 554. Chemistry shows sodium 134, potassium 3.7, chloride 104, bicarb 24, his BUN 7, creatinine 0.72. ASSESSMENT: 79-year-old gentleman is stabilizing from all of his complex problems. However, his sodium sliding some. He will need Tolvaptan to help to stabilize this. He did have paroxysmal atrial fibrillation. He has not had atrial fibrillation for a long time now. Combination of carvedilol to decrease chance of atrial fibrillation and anticoagulation with apixaban is working. He also had severe hyponatremia. This is due to combination of adrenal insufficiency and SIADH. Combination of fludrocortisone and hydrocortisone now needing Tolvaptan about twice a week has corrected this situation. He also has severe orthostatic hypotension likely due to autonomic dysfunction. Combination of fludrocortisone and hydrocortisone has helped this significantly. Along with this, he has severe supine hypertension. Amlodipine and lisinopril are correcting this. Lisinopril is also needed to protect the kidney due to diabetes. He also has at least moderate carotid stenosis and hypercholesterolemia, then he will need to continue to have Lipitor 80 mg q. h.s. for this. Please see the following for my recommendations. RECOMMENDATIONS: 1. Continue with the current regimen. 2. Please give Tolvaptan 15 mg one dose today. Please use this twice a week, based on the current dosing he will need it on Saturdays and Tuesdays. 3. Please provide home health care for him. He will need weekly blood draws and also help organizing his medicines at home. 4. Please provide compression stocking during the day, so that would help him to keep blood pressure during the day. 5. His called and I spoke with her and Mr. Moore for a long time. I have explained the disease processes and every single medication that needs to be taken. He will also need to have an oral surgeon follow up. The oral surgeon will need to be able or willing to see him in the hospital - inpatient setting. So the best change of that occurring will be referral to Endocrinology at [facility]. We will help to facilitate this on Friday morning. He will also need Pulmonary followup for his emphysema, which is completely out of proportion to his smoking status. He has not smoked for 35 years. It has been a pleasure of taking care of Mr. Moore. If you have any questions, please give me a call. Job ID: [id number] [facility]
[2019-11-13] MEDS: Atorvastatin Calcium 40 MG TAB PO SCH (21:17)
[2019-11-14 04:43] LABS: #Basophils 0.1 thou/uL (0.0-0.2); #Eosinphils 0.1 thou/uL (0.0-0.7); #Lymphocytes 2.1 thou/uL (1.20-3.40); #Monocytes 0.7 thou/uL (0.11-0.59); #Neutrophils 6.1 thou/uL (1.40-6.50); %Eosinophils 1.5 % (0.0-10.0); %Lymphocytes 22.9 % (21.0-51.0); %Monocytes 7.5 % (0.0-10.0); %Neutrophils 67.1 % (42.0-75.0); Mean Corpuscular Hemoglobin 31.2 pg (27.0-31.0); Mean Corpuscular Volume 91.6 fL (78.0-98.0); Mean Platelet Volume 7.2 fL (7.4-10.4); Platelet Count 554 thou/uL (130-400); RBC Distribution Width 11.9 % (11.5-14.5); Red Blood Cell (RBC) Count 3.84 mill/uL (4.70-6.10); White Blood Cell (WBC) Count 9.1 thou/uL (4.8-10.8)
[2019-11-14] MEDS: Lisinopril 10 MG TAB PO SCH (05:43)
[2019-11-14 08:31] LABS: Anion Gap 11 mmol/L (10-20); BUN (Urea Nitrogen) 8 mg/dL (8.4-25.7); Calc. Creatinine Clearance 87 mL/min (70-130); Calcium 8.1 mg/dL (7.8-10.44); Carbon Dioxide 24 mmol/L (23-31); Chloride 107 mmol/L (98-107); Estimated GFR-MDRD Greater than 90; Glucose 84 mg/dL (83-110); Magnesium 2.2 mg/dL (1.6-2.6); Potassium 3.8 mmol/L (3.5-5.1); Sodium 138 mmol/L (136-145)
[2019-11-14] MEDS: Apixaban 5 MG TAB PO SCH (08:37)
[2019-11-14] MEDS: Sodium Bicarbonate Tab 325 MG TAB PO SCH (08:37)
[2019-11-14] MEDS: Aspirin Chewable 81 MG TAB PO SCH (08:38)
[2019-11-14] MEDS: Fludrocortisone Acetate 0.1 MG TAB PO SCH (08:38)
[2019-11-14] MEDS: Potassium Chloride 20 MEQ TAB PO SCH (08:38)
[2019-11-14] MEDS: Hydrocortisone 10 mg Tablet PO SCH (08:38)
[2019-11-14] MEDS: Magnesium Oxide 400 MG TAB PO SCH (08:38)
[2019-11-14] MEDS: Carvedilol 6.25 MG TAB PO SCH (08:38)
[2019-11-14] MEDS: Polyethylene Glycol 3350 17 GM Packet PO SCH (08:39)
--- NOTE | 2019-11-14 08:44 | PRG ---
DATE OF SERVICE: 11/14/2019 SUBJECTIVE: Mr. Xavier Moore had a good day. He ambulated twice yesterday. First he walked a short distance by himself. Later on, he walked with a walker, went around the unit twice and a little bit more. He felt good in general. He believes he is ready to go home. REVIEW OF SYSTEMS: GENERAL: There is no fever, chills, productive cough. HEENT: There is no change in vision, hearing, or swallowing. PULMONARY: There is no shortness of breath. CARDIAC: There is no palpitation, chest pain. GI: There is no nausea, vomiting, diarrhea. : He urinated quite a bit yesterday according to him. There is no difficulty with urination. MUSCULOSKELETAL: There is no joint or muscle pains. INTEGUMENT: There is no new skin breakdown. NEUROLOGIC: There are no new focal deficits or weaknesses. MEDICATION: To have cardiac effects include 1. Amlodipine 7.5 mg daily at noon time. 2. Apixaban 5 mg twice a day. 3. Aspirin 81 mg daily. 4. Atorvastatin 80 mg at bedtime. 5. Carvedilol 12.5 mg q.12 hours. 6. Fludrocortisone 0.1 mg daily in the morning. 7. Hydrocortisone 10 mg in a.m. and 5 mg in the afternoon. 8. Lisinopril 10 mg q.12 hours along with carvedilol. 9. Magnesium oxide 400 mg twice per day. 10. Potassium chloride, which is K-Dur, 20 mEq daily. 11. Tolvaptan 15 mg twice per week on Tuesdays and Saturdays. His telemetry was reviewed. It is complete sinus rhythm. There are no concerning arrhythmias. PHYSICAL EXAMINATION: VITAL SIGNS: This morning, supine, heart rate 69, blood pressure 136/65. GENERAL: He is alert and conversational, relaxed without any signs of distress. He is looking forward to go home. HEENT: Show EOMI. Oropharynx is benign with moist mucosa. NECK: His JVP is about 7 cm with slight positive hepatojugular reflux, this is a decreased fluid level from yesterday. PULMONARY: There is good air movement bilaterally. Slight bibasilar Velcro like crackles corresponding to emphysema. CARDIAC: Regular rate and rhythm. Normal S1, S2, there is 1/6 holosystolic murmur at the apex. ABDOMEN: Soft, nontender. Positive bowel sounds. EXTREMITIES: Lower extremities are without edema. LABORATORY DATA: Chemistry, there is no chemistry this morning. This needs to be done quickly so we would know what his sodium and potassium values are. ASSESSMENT: This 79-year-old gentleman has reached stability and that he is about ready to be discharged. He has a very complex set of problems. He has hyponatremia secondary to combination of chronic adrenal insufficiency and some degree of SIADH. Combination of fludrocortisone and hydrocortisone and twice a week of tolvaptan has corrected this. He has severe orthostatic hypotension and supine hypertension. Combination of fludrocortisone and hydrocortisone and compression stocking during the day has corrected orthostatic hypotension. As long as he takes his medication and eats breakfast he seemed to do quite well. He is depending on these medications. For his supine hypertension, he is dependent on amlodipine at 7.5 mg daily. He also has lisinopril twice a day for his supine hypertension and renal protection from diabetes. He does have paroxysmal atrial fibrillation. Carvedilol 12.5 mg twice a day was good enough to keep him away from atrial fibrillation and he has been in sinus rhythm for over a week now. However, he will still need apixaban to prevent strokes. Please see the following for my recommendations. RECOMMENDATIONS: 1. Please ensure chemistries done so we can follow his sodium and potassium and correct it appropriately. 2. Continue current cardiac regimen as is. 3. Depending on the potassium value, we might need to increase the potassium supplementation. 4. He will need Endocrinology consult. The Endocrinology need to follow him inpatient. So, the best chance for that to occur is for him to be seen by the Endocrinology at [facility] nay[facility]. He also needs followup on his emphysema that is not due to smoking. 5. Due to the debilitated stay and difficulty with medications set up, it will be good for him to have home health care at first. He will need bi-weekly blood draws to make sure his sodium and electrolytes are in order. 6. Continue with sodium bicarb supplementation for his metabolic acidosis for now. If his bicarb returning to normal or supernormal, then we can decrease his sodium bicarb supplementation. I also communicated his hospital stay to his primary care - Dr. Kyara Martinez. She will manage the home health care. It has been a pleasure taking care of Mr. Xavier Moore. If you have any questions, please give me a call. Job ID: [id number] CHRISTY
[2019-11-14 11:27] VITALS: BP 145/67; TEMP 97.8
[2019-11-14] MEDS: Amlodipine 5 MG TAB PO SCH (11:27)
[2019-11-15 05:08] LABS: Dopamine 45 pg/mL (0-48); Epinephrine 35 pg/mL (0-62); Norepinephrine 597 pg/mL (0-874)
--- NOTE | 2019-11-15 13:59 | DIS ---
DATE OF ADMISSION: 10/23/2019 DATE OF DISCHARGE: 11/14/2019 DISCHARGE DISPOSITION: Home. PRIMARY DISCHARGE DIAGNOSES: Relative adrenal insufficiency for further workup, orthostatic hypotension, hypertension, severe hyponatremia on admission, likely secondary to SIADH, resolved; chronic anemia; paroxysmal atrial fibrillation in sinus rhythm. Initial metabolic acidosis, resolved and dyslipidemia. PROCEDURES DONE DURING HOSPITALIZATION: Chest x-ray done on admission showed no acute intrathoracic abnormality. 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 CT chest with contrast done on 11/01/2019 showed no suspicious lung mass, severe background emphysema, small right pleural effusion and right lower lobe scarring, 4 mm nodule in left upper lobe for which a followup CT scan needs to be done in 12 months. Echo with 2D Doppler done on 11/01/2019 showed ejection fraction of 60% to 65%. Carotid Doppler on 11/06/2019 showed intimal thickening and small foci of calcified plaque in both carotid bifurcation. There is no significant stenosis based on NASCET criteria. His ultrasound carotids were compared with CT angio on 08/30/2017, MRI brain with and without contrast done showed no restricted diffusion or acute infarct, chronic small-vessel ischemic changes in the white matter, homogeneous enhancement of the pituitary gland. No MR evidence of a microadenoma or macroadenoma. Blood cultures x2, no growth. Urine culture, no growth. H and H of 12 and 35, platelet count 554 on the day of discharge, MCV 91 with 67% neutrophils. BUN of 8, creatinine 0.7 on the day of discharge, sodium 138 on the day of discharge. Serum bicarb 24 on the day of discharge. Magnesium 2.2 on the day of discharge. The patient has had a cortisol response to stimulation done which showed a cortisol base of 10.2 mcg/dL at 30 minutes was 18, at 60 minutes was 19.4 and at 90 minutes was 20.5 mcg/dL, this was done on 10/31/2019 and albumin 2.9. The patient had a sodium level of 107 on the day of admission. TSH was 1.71. Urine drug screen was negative. Plasma alcohol less than 10. COVID-19 PCR done on 10/23/2019 was negative. DISCHARGE MEDICATIONS: 1. Aspirin 81 mg p.o. daily. 2. Metformin 500 mg p.o. at bedtime. 3. Albuterol inhaler q.6 hourly p.r.n. 4. Norvasc 7.5 mg at noon. 5. Eliquis 5 mg p.o. twice daily. 6. Lipitor 80 mg p.o. at bedtime. 7. Carvedilol 12.5 mg twice daily. 8. Florinef 0.1 mg p.o. daily. 9. Hydrocortisone 5 mg p.o. q.p.m. and 10 mg p.o. q.a.m. 10. Lisinopril 10 mg twice daily. 11. Magnesium oxide 400 mg p.o. twice daily for 2 weeks. 12. Protonix 40 mg p.o. daily. 13. K-Dur 20 mEq p.o. daily for 15 days. 14. Sodium bicarbonate 650 mg twice daily for total of five days. ALLERGIES: NAPROSYN, MOTRIN, AND ADHESIVE TAPE. INPATIENT CONSULTANTS: 1. Dr. Jim Howe for Cardiology. 2. Dr. Murillo for Neurology. 3. Dr. Lopez for Nephrology. DISCHARGE PLAN: The patient will follow up with Dr. Ariel Gleason, pipe machine operator at [facility]. Their office will call the patient to schedule an appointment. The patient will be set up with Dr. Trinidad for Pulmonology in eight weeks to follow up in his office for emphysema and further workup. He will follow up with his primary care physician, Dr. Martinez in 1 week. The patient will have a metabolic panel done and the results will be faxed to his primary care physician and Dr. Lopez. He needs to follow up with Dr. Lopez in [address] Jim Howe/[facility] in 10 days. BRIEF COURSE DURING HOSPITALIZATION: The patient initially got admitted on 10/23/2019 for confusion. He was found to have had a very low sodium around 107. He was initially admitted to [facility] and has had a slow correction of his sodium. He has had consultation with Dr. Lopez for Nephrology. The patient has had orthostatic hypotension and has had further workup done for the same. Dr. Jim Howe was consulted for Cardiology on the 31 of October. The patient has had ACTH stimulation test done which showed relative adrenal insufficiency. He was placed on hydrocortisone and fludrocortisone for the same. For his hypertension, the patient was also placed on multiple medications and has had slow titration of the same. He has had off and on confusion in the hospital, hence a CT brain and MRI brain were obtained, which did not reveal any acute pathology. In view of his emphysema and prior history of smoking, a CT chest with contrast done did not reveal any mass that was causing hyponatremia. Echo done showed normal ejection fraction. Prior to discharge, he is ambulated more than 400 feet in the hallway. I have given complete updates to his and the patient as well. Initially, the and him wanted to go for dizzy and balance Clinic, but later they changed her mind to have home health. [facility] has been set up and they will follow up with the patient. He was counseled to follow up with pipe machine operator and have followup labs as prescribed. He was also on tolvaptan which was been discontinued at the time of discharge due to sodium being 138. He is on hydrocortisone 10 mg in a.m. and 5 mg q.p.m. along with Florinef 0.1 mg daily. The patient also had paroxysmal atrial fibrillation and was placed on Eliquis for the same. Overall , the patient has remained hemodynamically stable with slow resolution of his confusion. He is hemodynamically stable and will be shortly discharged home. Please note, I have seen and examined the patient on the day of discharge. Job ID: [id number] MTDD
[2019-11-16] MEDS ORDERED: Tolvaptan 15 MG TAB PO SCH (09:00)
[2019-11-16 09:16] LABS: Dopamine 65 pg/mL (0-48); Epinephrine 31 pg/mL (0-62); Norepinephrine 773 pg/mL (0-874)
== END 2019-11-14 15:45 | disposition home health service (06) | DRG 643 ==
LOC: ERS 23:28 → ERHOLD 10-23 02:42 → IMCU/EMU 10-23 15:01 → 2NO 10-25 18:24 → T4-A 10-28 17:48 → IMCU/EMU 10-31 23:08 → 2NO 11-02 16:10
PROVIDERS: ADMIT Internal Medicine; ATTEND Internal Medicine
DX: E22.2 Syndrome of inappropriate secretion of antidiuretic hormone (principal); G93.41 Metabolic encephalopathy; E27.40 Unspecified adrenocortical insufficiency; N39.0 Urinary tract infection, site not specified; R65.10 Systemic inflammatory response syndrome (SIRS) of non-infectious origin without acute organ dysfunction; E87.2 Acidosis; Z20.828 Contact with and (suspected) exposure to other viral communicable diseases; I48.0 Paroxysmal atrial fibrillation; I10 Essential (primary) hypertension; E11.9 Type 2 diabetes mellitus without complications; D63.8 Anemia in other chronic diseases classified elsewhere; E78.5 Hyperlipidemia, unspecified; J43.9 Emphysema, unspecified; R91.1 Solitary pulmonary nodule; R31.29 Other microscopic hematuria; E83.42 Hypomagnesemia; D69.6 Thrombocytopenia, unspecified; I95.1 Orthostatic hypotension; Z98.42 Cataract extraction status, left eye; Z98.41 Cataract extraction status, right eye; Z87.891 Personal history of nicotine dependence; Z79.82 Long term (current) use of aspirin; Z79.899 Other long term (current) drug therapy; Z79.84 Long term (current) use of oral hypoglycemic drugs; R40.2362 Coma scale, best motor response, obeys commands, at arrival to emergency department; R40.2142 Coma scale, eyes open, spontaneous, at arrival to emergency department; R40.2252 Coma scale, best verbal response, oriented, at arrival to emergency department
CPT/HCPCS: 36415; 36416; 70450; 70553; 71045; 71260; 80048; 80053; 80076; 80306; 80307; 80400; 81003; 81015; 82274; 82384; 82533; 82553; 83605; 83735; 83930; 83935; 84100; 84133; 84300; 84443; 84484; 85007; 85014; 85018; 85025; 85027; 85060; 87040; 87086; 87635; 93005; 93010; 93306; 93880; 96360; 96361; A9579; J0360; J0696; J0834; J1650; J2543; J3370; J3475; J3490; J7030; Q9967; U0003

== ENCOUNTER 2019-11-22 15:58 | Inpatient (IN) | payer MEDICARE, OTHER ==
[2019-11-22 17:01] LABS: #Eosinphils 0.3 thou/uL (0.0-0.7); #Lymphocytes 1.3 thou/uL (1.20-3.40); #Monocytes 0.7 thou/uL (0.11-0.59); #Neutrophils 8.9 thou/uL (1.40-6.50); %Basophils 0.3 % (0.0-1.0); %Eosinophils 2.4 % (0.0-10.0); %Lymphocytes 11.6 % (21.0-51.0); %Monocytes 6.3 % (0.0-10.0); %Neutrophils 79.3 % (42.0-75.0); Hemoglobin 12.5 g/dL (14.0-18.0); Mean Corpuscular HGB CONC 33.7 g/dL (32.0-36.0); Mean Corpuscular Hemoglobin 30.4 pg (27.0-31.0); Mean Corpuscular Volume 90.2 fL (78.0-98.0); Mean Platelet Volume 8.5 fL (7.4-10.4); Platelet Count 315 thou/uL (130-400); RBC Distribution Width 12.3 % (11.5-14.5); Red Blood Cell (RBC) Count 4.11 mill/uL (4.70-6.10); White Blood Cell (WBC) Count 11.2 thou/uL (4.8-10.8)
[2019-11-22 17:26] LABS: Magnesium 1.6 mg/dL (1.6-2.6); Phosphorus 3.2 mg/dL (2.3-4.7)
[2019-11-22 17:30] LABS: ALT (SGPT) 12 U/L (8-55); AST (SGOT) 15 U/L (5-34); Albumin 3.4 g/dL (3.4-4.8); Alkaline Phosphatase 76 U/L (40-110); Anion Gap 13 mmol/L (10-20); BUN (Urea Nitrogen) 9 mg/dL (8.4-25.7); Calc. Creatinine Clearance 0 mL/min (70-130); Calcium 8.3 mg/dL (7.8-10.44); Carbon Dioxide 22 mmol/L (23-31); Chloride 91 mmol/L (98-107); Estimated GFR-MDRD Greater than 90; Glucose 137 mg/dL (83-110); Potassium 4.7 mmol/L (3.5-5.1); Protein, Total 5.4 g/dL (5.8-8.1); Sodium 121 mmol/L (136-145)
[2019-11-22 21:52] VITALS: BMI 24.3
[2019-11-22 21:56] LABS: Anion Gap 11 mmol/L (10-20); BUN (Urea Nitrogen) 7 mg/dL (8.4-25.7); Calc. Creatinine Clearance 105 mL/min (70-130); Calcium 7.8 mg/dL (7.8-10.44); Carbon Dioxide 19 mmol/L (23-31); Chloride 94 mmol/L (98-107); Estimated GFR-MDRD Greater than 90; Glucose 142 mg/dL (83-110); Potassium 4.1 mmol/L (3.5-5.1); Sodium 120 mmol/L (136-145)
[2019-11-22] MEDS ORDERED: Tolvaptan 15 MG TAB PO SCH (22:30)
--- NOTE | 2019-11-22 22:57 | PDOC.HHP ---
Hospitalist HPI - History of Present Illness Hyponatremia History of Present Illness: This is a 79-year-old male patient with a history of adrenal insufficiency who was recently admitted on account of hyponatremia Earlier this month patient was admitted on account of hyponatremia of 107 and was managed on discharge his sodium was 138 about a week ago. He was following up with his PCP who ordered his sodium and was noted to be 121 ask him to come to the ED for further evaluation. He had a mild confusion otherwise he generally had no symptoms. He is on hydrocortisone and fludrocortisone which doses he has not missed. On discharge following the previous admission he followed up with endocrinology where he was told his cortisol level was low. Hospitalist team was consulted to admit on account of hyponatremia Hospitalist ROS - Review of Systems Constitutional: denies: fever, chills, sweats, weakness Respiratory: denies: cough, shortness of breath, SOB with excertion, wheezing Cardiovascular: denies: chest pain, palpitations, orthopnea, paroxysmal noc. dyspnea Gastrointestinal: denies: nausea, vomiting, abdominal pain, diarrhea Neurological: denies: weakness, numbness, incoordination, change in speech, seizures Hospitalist History - Past Medical History Other Medical History: Hyponatremia - Past Surgical History Other Surgical History: None of significance - Social History Smoking Status: Former smoker Alcohol: reports: None Drugs: reports: none - Exam General Appearance: awake alert Eye: PERRL, anicteric sclera ENT: normocephalic atraumatic Neck: supple, no JVD, no thyromegaly, no lymphadenopathy Heart: RRR, no murmur, no gallops, normal peripheral pulses Gastrointestinal: soft, non-tender, non-distended, normal bowel sounds, no palpable masses Neurological: cranial nerve grossly intact, no weakness, no focal deficits Hospitalist Results - Labs Result Diagrams: 11/24/19 04:08 11/26/19 07:25 Lab results: WBC 11.2 thou/uL (4.8-10.8) H 11/22/19 16:41 Hgb 12.5 g/dL (14.0-18.0) L 11/22/19 16:41 Hct 37.0 % (42.0-52.0) L 11/22/19 16:41 MCV 90.2 fL (78.0-98.0) 11/22/19 16:41 Plt Count 315 thou/uL (130-400) 11/22/19 16:41 Neutrophils % 79.3 % (42.0-75.0) H 11/22/19 16:41 Sodium 120 mmol/L (136-145) L 11/22/19 21:17 Potassium 4.1 mmol/L (3.5-5.1) 11/22/19 21:17 Chloride 94 mmol/L (98-107) L 11/22/19 21:17 Carbon Dioxide 19 mmol/L (23-31) L 11/22/19 21:17 BUN 7 mg/dL (8.4-25.7) L 11/22/19 21:17 Creatinine 0.62 mg/dL (0.7-1.3) L 11/22/19 21:17 Glucose 142 mg/dL (83-110) H 11/22/19 21:17 Calcium 7.8 mg/dL (7.8-10.44) 11/22/19 21:17 Total Bilirubin 1.0 mg/dL (0.2-1.2) 11/22/19 16:41 AST 15 U/L (5-34) 11/22/19 16:41 ALT 12 U/L (8-55) 11/22/19 16:41 Alkaline Phosphatase 76 U/L (40-110) 11/22/19 16:41 Serum Total Protein 5.4 g/dL (5.8-8.1) L 11/22/19 16:41 Albumin 3.4 g/dL (3.4-4.8) 11/22/19 16:41 Hospitalist H&P A/P - Plan Plan: 79-year-old male patient recently admitted and evaluated for hyponatremia presents again with low sodium at 121. We need to admit him to inpatient for further monitoring and nephrology evaluation. Hyponatremia Presenting at 121 Etiology remains unclear Cortisol and TSH on last admission were within normal limits. Blood sugars are within normal limits as well CT scan on last admission showed a 4 mm nodule on likely source of SIADH. He is not on any medications likely to cause SIADH Will trend BMP every 4 Consult nephrology Possible adrenal insufficiency He was told he had low cortisol on external evaluation in spite of normal results here in the last admission. He is currently on fludrocortisone and hydrocortisonewe will continue but will defer to nephrology on that Mild anemia Hemoglobin is 12.5 Monitor. History of diabetes mellitus We will place him on sliding scale On home metformin. Coronary disease Continue on aspirin and atorvastatin Hypertension Continue amlodipine Emphysema No acute distress at the moment. Paroxysmal A. fib On Eliquis CODE STATUSfull code. is surrogate decision maker. VTE prophylaxisnone. Patient ambulatory
[2019-11-23 01:54] LABS: Anion Gap 11 mmol/L (10-20); BUN (Urea Nitrogen) 6 mg/dL (8.4-25.7); Calc. Creatinine Clearance 105 mL/min (70-130); Calcium 7.9 mg/dL (7.8-10.44); Carbon Dioxide 20 mmol/L (23-31); Chloride 95 mmol/L (98-107); Estimated GFR-MDRD Greater than 90; Glucose 125 mg/dL (83-110); Potassium 4.1 mmol/L (3.5-5.1); Sodium 122 mmol/L (136-145)
--- NOTE | 2019-11-23 02:48 | CON ---
DATE OF CONSULTATION: 11/22/2019 CONSULTING PHYSICIAN: Tyler Cali MD REASON FOR CONSULTATION: Hyponatremia. REASON FOR ADMISSION: Altered mentation. HISTORY OF PRESENT ILLNESS: A male with history of hypertension and type 2 diabetes, came to the hospital with altered mentation. The patient was found at the outpatient clinic and was also found to have a sodium of 120 with slight confusion. He was recently admitted to the hospital and discharged with a sodium of 132 and now it is 120. The patient was having 50 ounces of fluid. No nausea, vomiting, chest pain, or palpitation reported. PAST MEDICAL HISTORY: Positive for type 2 diabetes and hypertension. PAST SURGICAL HISTORY: Cataract surgery. HOME MEDICATIONS: Reviewed. ALLERGIES: TO IBUPROFEN, NAPROXEN, AND ADHESIVE TAPE. SOCIAL HISTORY: No smoking, alcohol, or illicit drug abuse. Former smoker. FAMILY HISTORY: No history of any kidney disease. REVIEW OF SYSTEMS: CONSTITUTIONAL: Negative for weight loss or gain, ability to conduct usual activities. SKIN: Negative for rash, itching. EYES: Negative for double vision, pain. ENT/MOUTH: Negative for nose bleeding, neck stiffness, pain, tenderness. CARDIOVASCULAR: Negative for palpitations, dyspnea on exertion, orthopnea. RESPIRATORY: Negative for shortness of breath, wheezing, cough, hemoptysis, fever or night sweats. GASTROINTESTINAL: Negative for poor appetite, abdominal pain, heartburn, nausea, vomiting, constipation, or diarrhea. GENITOURINARY: Negative for urgency, frequency, dysuria, nocturia. MUSCULOSKELETAL: Negative for pain, swelling. NEUROLOGIC/PSYCHIATRIC: Negative for anxiety, depression. ALLERGY/IMMUNOLOGIC: Negative for skin rash, bleeding tendency. PHYSICAL EXAMINATION: GENERAL: This is a well-built male, in no apparent distress. VITAL SIGNS: Temperature 98.4, pulse 80, respirations 16, and blood pressure 131/83. HEENT: Atraumatic and normocephalic. Oral mucosa is moist. NECK: Supple. CV: S1 and S2 heard. Rate and rhythm reg. RESPIRATORY: Clear. GI: Abdomen is soft. MUSCULOSKELETAL: No tenderness. No edema. DERMATOLOGIC: No skin rash. NEUROLOGIC: . LABORATORY DATA: Hemoglobin is 12.5. Potassium 4.1, sodium 120, BUN is 7, and creatinine is 0.7. ASSESSMENT AND PLAN: 1. Hyponatremia most likely from syndrome of inappropriate antidiuretic hormone secretion. Recommend age-appropriate cancer screening and limit fluid intake. We will start on tolvaptan, which he has responded before. 2. Acidosis. 3. Hypochloremia. Check cortisol and TSH level too. 4. Altered mentation, most likely from electrolyte abnormalities. We will give tolvaptan. Monitor sodium closely. Check urine studies. Job ID: [id number]
[2019-11-23 04:47] LABS: #Eosinphils 0.2 thou/uL (0.0-0.7); #Lymphocytes 1.4 thou/uL (1.20-3.40); #Monocytes 0.8 thou/uL (0.11-0.59); #Neutrophils 5.8 thou/uL (1.40-6.50); %Basophils 0.6 % (0.0-1.0); %Lymphocytes 17.4 % (21.0-51.0); %Monocytes 9.2 % (0.0-10.0); %Neutrophils 69.8 % (42.0-75.0); Hemoglobin 12.1 g/dL (14.0-18.0); Mean Corpuscular HGB CONC 33.3 g/dL (32.0-36.0); Mean Corpuscular Hemoglobin 30.1 pg (27.0-31.0); Mean Corpuscular Volume 90.2 fL (78.0-98.0); Platelet Count 298 thou/uL (130-400); RBC Distribution Width 12.2 % (11.5-14.5); Red Blood Cell (RBC) Count 4.02 mill/uL (4.70-6.10); White Blood Cell (WBC) Count 8.3 thou/uL (4.8-10.8)
[2019-11-23 05:17] LABS: Anion Gap 10 mmol/L (10-20); BUN (Urea Nitrogen) 6 mg/dL (8.4-25.7); Calc. Creatinine Clearance 97 mL/min (70-130); Calcium 8.4 mg/dL (7.8-10.44); Carbon Dioxide 21 mmol/L (23-31); Chloride 100 mmol/L (98-107); Estimated GFR-MDRD Greater than 90; Glucose 110 mg/dL (83-110); Potassium 4.3 mmol/L (3.5-5.1); Sodium 127 mmol/L (136-145)
[2019-11-23 10:08] LABS: Anion Gap 14 mmol/L (10-20); BUN (Urea Nitrogen) 5 mg/dL (8.4-25.7); Calc. Creatinine Clearance 90 mL/min (70-130); Calcium 8.7 mg/dL (7.8-10.44); Carbon Dioxide 20 mmol/L (23-31); Chloride 104 mmol/L (98-107); Estimated GFR-MDRD Greater than 90; Glucose 102 mg/dL (83-110); Potassium 4.7 mmol/L (3.5-5.1); Sodium 133 mmol/L (136-145)
[2019-11-23 12:31] LABS: SARS-CoV-2 MS2 Positive; SARS-CoV-2 N Gene Negative; SARS-CoV-2 S Gene Negative; SARS-CoV-2 by NAA Not Detected (NotDetected); SARS-CoV-2 orf1ab Negative
--- NOTE | 2019-11-23 13:24 | PRG ---
DATE OF SERVICE: SUBJECTIVE: Patient was seen and examined at bedside and overnight events noted. Patient denies any shortness of breath or chest pain or palpitation. No history of nausea or vomiting or diarrhea or fever or chills or cramps. OBJECTIVE: General: This is a well-built male, in no apparent distress. Vital Signs: Temperature 99.1. Heart Rate 73. Respiratory rate 16. Blood pressure 120/61. HEENT: Atraumatic, normocephalic. Oral mucosa is moist. Neck: Supple. Cardiovascular: S1, S2 heard. Rate and rhythm regular. Respiratory: Clear to auscultation. Gastrointestinal: Abdomen is soft. Musculoskeletal: No tenderness. No edema. Dermatologic: No skin rash. Neurologic: Alert and awake and oriented x3. No focal neurologic deficits. Moving all the extremities. Psychiatric: Mood and affect normal. LABORATORY DATA: Potassium 4.7, sodium is 133, BUN is 5, creatinine is 0.69. ASSESSMENT AND PLAN: 1. Hyponatremia secondary to syndrome of inappropriate antidiuretic hormone secretion. Sodium level with good correction after the tolvaptan. We will hold tolvaptan today. Continue on fluid restriction. Monitor sodium. 2. Acidosis, stable. 3. Altered mentation. 4. Hypochloremia. 5. History of orthostatic hypotension with related to adrenal insufficiency. 6. Follow up with Endocrinology. 7. Monitor sodium. Job ID: [id number]
[2019-11-23] MEDS ORDERED: DEXTROSE 5% IV SCH (13:30)
[2019-11-23] MEDS ORDERED: WATER IV SCH (13:30)
--- NOTE | 2019-11-23 14:05 | PDOC.HOSPP ---
- Subjective Encounter Date: 11/23/19 Encounter Time: 13:00 Subjective: Patient was examined in bed. He was generally stable has no new complaints today Denies any chest pain shortness of breath or confusion. - Objective Vital Signs & Weight: Vital Signs (12 hours) Temp Pulse Resp BP Pulse Ox 11/23/19 09:20 95 11/23/19 07:45 99.1 F 76 16 120/61 98 11/23/19 04:00 99.0 F 75 19 155/74 H 97 Weight Weight 161 lb 8 oz I&O: 11/22/19 11/23/19 11/24/19 06:59 06:59 06:59 Intake Total 990 Output Total 2125 Balance -1135 Result Diagrams: 11/24/19 04:08 11/26/19 07:25 Hospitalist ROS - Review of Systems Constitutional: denies: fever, chills, sweats, weakness Respiratory: denies: cough, shortness of breath, SOB with excertion Cardiovascular: denies: chest pain, palpitations, paroxysmal noc. dyspnea Gastrointestinal: denies: nausea, vomiting, abdominal pain, constipation Neurological: denies: weakness, numbness, change in speech, confusion - Exam General - other findings: Patient is awake and alert. No acute distress. Heart - other findings: Heart sounds 1 and 2 present and normal. No murmurs gallops or rubs. Respiratory - other findings: Breath sounds adequate bilateral. No wheezing Gastrointestinal: soft, non-tender, non-distended, normal bowel sounds Neurological: cranial nerve grossly intact, no focal deficits Musculoskeletal: normal tone, normal strength, no muscle wasting Psychiatric: A&O x 3 Hosp A/P - Plan This is a 79-year-old male patient admitted on account of hyponatremia. Overnight he was noted on tolvaptan with a correction of his sodium from 120- 133 today. He is otherwise stable. Hyponatremia secondary to SIADH. Overcorrection by 13 in less than 24 hours Dextrose started to prevent overcorrection. Holding desmopressin for nowwe will check BMP Discussed with nephrology. Mild anemia We will monitor. Diabetes mellitus Blood sugar within normal limits for now. We will place on correctional dosing insulin for now. Coronary disease Continue aspirin and atorvastatin. CODE STATUSfull code VTE prophylaxispatient ambulatory on follow-up
[2019-11-23 14:12] LABS: Anion Gap 13 mmol/L (10-20); BUN (Urea Nitrogen) 6 mg/dL (8.4-25.7); Calc. Creatinine Clearance 86 mL/min (70-130); Calcium 8.5 mg/dL (7.8-10.44); Carbon Dioxide 21 mmol/L (23-31); Chloride 104 mmol/L (98-107); Estimated GFR-MDRD Greater than 90; Glucose 136 mg/dL (83-110); Potassium 4.2 mmol/L (3.5-5.1); Sodium 134 mmol/L (136-145)
[2019-11-23] MEDS ORDERED: Dextrose 5% in Water 1,000 ML IV SCH (16:00)
[2019-11-23] MEDS: Carvedilol 6.25 MG TAB PO SCH (16:55)
[2019-11-23 17:38] LABS: Anion Gap 12 mmol/L (10-20); BUN (Urea Nitrogen) 6 mg/dL (8.4-25.7); Calc. Creatinine Clearance 83 mL/min (70-130); Calcium 8.5 mg/dL (7.8-10.44); Carbon Dioxide 24 mmol/L (23-31); Chloride 102 mmol/L (98-107); Estimated GFR-MDRD Greater than 90; Glucose 129 mg/dL (83-110); Potassium 4.1 mmol/L (3.5-5.1); Sodium 134 mmol/L (136-145)
[2019-11-23] MEDS: Apixaban 5 MG TAB PO SCH (20:04)
[2019-11-23] MEDS: Atorvastatin Calcium 40 MG TAB PO SCH (20:04)
[2019-11-23 21:45] LABS: Hemoglobin 12.1 g/dL (14.0-18.0); Platelet Count 296 thou/uL (130-400)
[2019-11-23 21:54] LABS: Anion Gap 11 mmol/L (10-20); BUN (Urea Nitrogen) 7 mg/dL (8.4-25.7); Calc. Creatinine Clearance 78 mL/min (70-130); Calcium 8.1 mg/dL (7.8-10.44); Carbon Dioxide 22 mmol/L (23-31); Chloride 102 mmol/L (98-107); Estimated GFR-MDRD Greater than 90; Glucose 135 mg/dL (83-110); Potassium 3.9 mmol/L (3.5-5.1); Sodium 131 mmol/L (136-145)
[2019-11-24 01:44] LABS: Anion Gap 13 mmol/L (10-20); BUN (Urea Nitrogen) 7 mg/dL (8.4-25.7); Calc. Creatinine Clearance 81 mL/min (70-130); Calcium 8.1 mg/dL (7.8-10.44); Carbon Dioxide 21 mmol/L (23-31); Chloride 102 mmol/L (98-107); Estimated GFR-MDRD Greater than 90; Glucose 86 mg/dL (83-110); Potassium 4.1 mmol/L (3.5-5.1); Sodium 132 mmol/L (136-145)
[2019-11-24 04:19] LABS: Hemoglobin 12.5 g/dL (14.0-18.0); Platelet Count 305 thou/uL (130-400)
[2019-11-24 04:52] LABS: Anion Gap 11 mmol/L (10-20); BUN (Urea Nitrogen) 7 mg/dL (8.4-25.7); Calc. Creatinine Clearance 80 mL/min (70-130); Calcium 8.5 mg/dL (7.8-10.44); Carbon Dioxide 22 mmol/L (23-31); Chloride 104 mmol/L (98-107); Estimated GFR-MDRD Greater than 90; Glucose 94 mg/dL (83-110); Potassium 4.3 mmol/L (3.5-5.1); Sodium 133 mmol/L (136-145)
[2019-11-24] MEDS: Aspirin 81 mg Enteric Coated Tablet PO SCH (07:58)
[2019-11-24] MEDS: Carvedilol 6.25 MG TAB PO SCH ×2 (07:58→16:48)
[2019-11-24] MEDS: Apixaban 5 MG TAB PO SCH ×2 (07:59→20:07)
[2019-11-24 10:16] LABS: BUN (Urea Nitrogen) 6 mg/dL (8.4-25.7); Calc. Creatinine Clearance 76 mL/min (70-130); Calcium 8.2 mg/dL (7.8-10.44); Carbon Dioxide 14 mmol/L (23-31); Chloride 103 mmol/L (98-107); Estimated GFR-MDRD Greater than 90; Glucose 97 mg/dL (83-110); Potassium 4.5 mmol/L (3.5-5.1); Sodium 129 mmol/L (136-145)
[2019-11-24 10:30] LABS: Anion Gap 17 mmol/L (10-20)
--- NOTE | 2019-11-24 12:49 | PRG ---
DATE OF SERVICE: 11/24/2019 SUBJECTIVE: Patient was seen and examined at bedside and overnight events noted. Patient denies any shortness of breath or chest pain or palpitation. No history of nausea or vomiting or diarrhea or fever or chills or cramps. OBJECTIVE: GENERAL: This is a well-built male, in no apparent distress. VITAL SIGNS: Temperature 97.6. Heart rate 69. Respiratory rate 16. Blood pressure 131/60. HEENT: Atraumatic, normocephalic. Oral mucosa is moist NECK: Supple. CARDIOVASCULAR: S1, S2 heard. Rate and rhythm regular. RESPIRATORY: Clear to auscultation. GASTROINTESTINAL: Abdomen is soft. MUSCULOSKELETAL: No tenderness. No edema. DERMATOLOGIC: No skin rash. NEUROLOGIC: Alert and awake and oriented X3. No focal neurologic deficits. Moving all the extremities. PSYCHIATRIC: Mood and affect normal. LABORATORY DATA: Potassium is 4.5, sodium 129, BUN is 6, creatinine is 0.8. ASSESSMENT AND PLAN: 1. Hyponatremia secondary to syndrome of inappropriate antidiuretic hormone secretion. Monitor sodium. Limit fluid intake. 2. Altered mentation. 3. . 4. Orthostatic hypotension. Monitor sodium closely. Job ID: [id number]
[2019-11-24 14:53] LABS: Anion Gap 11 mmol/L (10-20); BUN (Urea Nitrogen) 7 mg/dL (8.4-25.7); Calc. Creatinine Clearance 77 mL/min (70-130); Calcium 8.1 mg/dL (7.8-10.44); Carbon Dioxide 19 mmol/L (23-31); Chloride 102 mmol/L (98-107); Estimated GFR-MDRD Greater than 90; Glucose 98 mg/dL (83-110); Potassium 4.4 mmol/L (3.5-5.1); Sodium 128 mmol/L (136-145)
--- NOTE | 2019-11-24 15:54 | PDOC.HOSPP ---
- Subjective Encounter Date: 11/24/19 Encounter Time: 10:00 Subjective: Patient was seen and examined in bed. He has no complaints. He feels pretty well He denies any chest pain shortness of breath, confusion or tremors - Objective Vital Signs & Weight: Vital Signs (12 hours) Temp Pulse Resp BP Pulse Ox 11/24/19 11:25 97.6 F 69 16 131/60 95 11/24/19 08:10 95 11/24/19 07:19 98.5 F 74 16 131/60 95 Weight Weight 157 lb 3.2 oz I&O: 11/23/19 11/24/19 11/25/19 06:59 06:59 06:59 Intake Total 990 1670 Output Total 6282 5050 Balance -1135 -295 Result Diagrams: 11/24/19 04:08 11/26/19 07:25 Hospitalist ROS - Medication Medications: Active Medications Generic Name Dose Route Start Last Admin Trade Name Freq PRN Reason Stop Dose Admin Apixaban 5 mg 11/23/19 21:00 11/24/19 07:59 Eliquis PO 5 mg BID JAELYN Administration Aspirin 81 mg 11/24/19 09:00 11/24/19 07:58 Ecotrin PO 81 mg DAILY JAELYN Administration Atorvastatin Calcium 40 mg 11/23/19 21:00 11/23/19 20:04 Lipitor PO 40 mg HS JAELYN Administration Carvedilol 12.5 mg 11/23/19 17:00 11/24/19 07:58 Coreg PO 12.5 mg BID-WM JAELYN Administration - Exam General - other findings: Patient is awake and alert. Heart - other findings: S1-S2 present no murmurs gallops or rubs. Respiratory - other findings: No distress. Air entry good bilaterally Gastrointestinal - other findings: Soft nontender bowel sounds present and normal. Neurological - other findings: No focal deficits. Psychiatric: A&O x 3 Hosp A/P - Plan This is a 79-year-old male patient admitted on account of hyponatremia. Received tolvaptan on day 1. Sodium reduced from 1 33-129 this morning. Hyponatremia secondary to SIADH. Generally stable. Sodium ranging between 129 133 We will continue monitoring for ID Hypercortisolism. Fludrocortisone and hydrocortisone Continue monitoring sodium Mild anemia We will monitor Diabetes mellitus Blood sugar within normal limits for now. We will place on correctional dosing insulin for now. Coronary disease Continue aspirin and atorvastatin. CODE STATUSfull code VTE prophylaxispatient ambulatory on follow-up
[2019-11-24 17:44] LABS: Anion Gap 9 mmol/L (10-20); BUN (Urea Nitrogen) 7 mg/dL (8.4-25.7); Calc. Creatinine Clearance 77 mL/min (70-130); Calcium 8.4 mg/dL (7.8-10.44); Carbon Dioxide 26 mmol/L (23-31); Chloride 99 mmol/L (98-107); Estimated GFR-MDRD Greater than 90; Glucose 96 mg/dL (83-110); Potassium 4.2 mmol/L (3.5-5.1); Sodium 130 mmol/L (136-145)
[2019-11-24] MEDS: Hydrocortisone 10 mg Tablet PO SCH (20:07)
[2019-11-24] MEDS: Atorvastatin Calcium 40 MG TAB PO SCH (20:07)
[2019-11-25 05:23] LABS: Anion Gap 12 mmol/L (10-20); BUN (Urea Nitrogen) 8 mg/dL (8.4-25.7); Calc. Creatinine Clearance 82 mL/min (70-130); Calcium 8.4 mg/dL (7.8-10.44); Carbon Dioxide 23 mmol/L (23-31); Chloride 101 mmol/L (98-107); Estimated GFR-MDRD Greater than 90; Glucose 94 mg/dL (83-110); Potassium 4.5 mmol/L (3.5-5.1); Sodium 131 mmol/L (136-145)
[2019-11-25] MEDS: Carvedilol 6.25 MG TAB PO SCH ×2 (08:38→16:59)
[2019-11-25] MEDS: Aspirin 81 mg Enteric Coated Tablet PO SCH (08:38)
[2019-11-25] MEDS: Fludrocortisone Acetate 0.1 MG TAB PO SCH (08:38)
[2019-11-25] MEDS: Apixaban 5 MG TAB PO SCH ×2 (08:38→20:42)
--- NOTE | 2019-11-25 15:23 | PDOC.HOSPP ---
- Subjective Encounter Date: 11/25/19 Encounter Time: 11:00 Subjective: Patient was seen and examined in bed. He had no complaints. He had a good night He denied any confusion or disorientation - Objective Vital Signs & Weight: Vital Signs (12 hours) Temp Pulse Resp BP Pulse Ox 11/25/19 11:30 98.1 F 71 16 108/57 L 96 11/25/19 07:51 97.9 F 70 16 137/63 97 11/25/19 04:00 98.4 F 75 16 128/57 L 97 Weight Weight 157 lb 11.2 oz I&O: 11/24/19 11/25/19 11/26/19 06:59 06:59 06:59 Intake Total 1670 1120 Output Total 2310 975 Balance -640 145 Result Diagrams: 11/24/19 04:08 11/26/19 07:25 Hospitalist ROS - Medication Medications: Active Medications Generic Name Dose Route Start Last Admin Trade Name Freq PRN Reason Stop Dose Admin Apixaban 5 mg 11/23/19 21:00 11/25/19 08:38 Eliquis PO 5 mg BID JAELYN Administration Aspirin 81 mg 11/24/19 09:00 11/25/19 08:38 Ecotrin PO 81 mg DAILY JAELYN Administration Atorvastatin Calcium 40 mg 11/23/19 21:00 11/24/19 20:07 Lipitor PO 40 mg HS JAELYN Administration Carvedilol 12.5 mg 11/23/19 17:00 11/25/19 08:38 Coreg PO 12.5 mg BID-WM JAELYN Administration Fludrocortisone Acetate 0.1 mg 11/25/19 09:00 11/25/19 08:38 Florinef PO 0.1 mg DAILY JAELYN Administration Hydrocortisone 5 mg 11/24/19 21:00 11/24/19 20:07 Cortef PO 5 mg QPM JAELYN Administration - Exam General - other findings: Patient awake and alert. No distress Heart - other findings: S1-S2 present. No murmurs gallops or rubs. Respiratory - other findings: Air entry adequate bilaterally. Neurological: cranial nerve grossly intact, no new deficit Psychiatric: A&O x 3 Hosp A/P - Plan This is a 79-year-old male patient admitted on account of hyponatremia. Received tolvaptan on day 1. Sodium currently corrected ranging between 130 and 133. Plan to monitor him for 1 more day prior to discharge. Hyponatremia secondary to SIADH. Generally stable. Sodium ranging between 129 133 We will continue monitoring for a day Hypercortisolism. Fludrocortisone and hydrocortisone Continue monitoring sodium Mild anemia We will monitor Diabetes mellitus Blood sugar within normal limits for now. We will place on correctional dosing insulin for now. Coronary disease Continue aspirin and atorvastatin. CODE STATUSfull code VTE prophylaxispatient ambulatory on follow-up
--- NOTE | 2019-11-25 16:05 | PRG ---
DATE OF SERVICE: 11/25/2019 SUBJECTIVE: Patient was seen and examined at bedside and overnight events noted. Patient denies any shortness of breath or chest pain or palpitation. No history of nausea or vomiting or diarrhea or fever or chills or cramps. OBJECTIVE: GENERAL: This is a well-built male, in no apparent distress. VITAL SIGNS: Temperature 99.1. Heart rate 71. Respiratory rate 17. Blood pressure . HEENT: Atraumatic, normocephalic. Oral mucosa is moist. NECK: Supple. CARDIOVASCULAR: S1, S2 heard. Rate and rhythm regular. RESPIRATORY: Clear to auscultation. GASTROINTESTINAL: Abdomen is soft. MUSCULOSKELETAL: No tenderness. No edema. DERMATOLOGIC: No skin rash. NEUROLOGIC: Alert and awake and oriented x3. No focal neurologic deficits. Moving all the extremities. PSYCHIATRIC: Mood and affect normal. LABORATORY DATA: Sodium 131, potassium 4.5, creatinine is 0.7. ASSESSMENT AND PLAN: 1. Hyponatremia secondary to adrenal insufficiency and syndrome of inappropriate antidiuretic hormone secretion. Monitor sodium. Limit fluid intake. 2. Altered mentation. 3. Orthostatic hypotension, possible adrenal insufficiency, but is on followup with Endocrinology to continue on steroids for now. 4. Plan is to limit fluid intake and continue on steroids for now and monitor sodium one more day. If stable and stays above 130, safe to discharge home with close followup with Endocrinology. Job ID: [id number]
[2019-11-25] MEDS: Hydrocortisone 10 mg Tablet PO SCH (20:42)
[2019-11-25] MEDS: Atorvastatin Calcium 40 MG TAB PO SCH (20:43)
[2019-11-25] MEDS ORDERED: Senokot S 8.6-50 MG TAB PO PRN (21:58)
[2019-11-26 07:57] LABS: Anion Gap 10 mmol/L (10-20); BUN (Urea Nitrogen) 9 mg/dL (8.4-25.7); Calc. Creatinine Clearance 90 mL/min (70-130); Calcium 8.4 mg/dL (7.8-10.44); Carbon Dioxide 25 mmol/L (23-31); Chloride 99 mmol/L (98-107); Estimated GFR-MDRD Greater than 90; Glucose 95 mg/dL (83-110); Potassium 4.1 mmol/L (3.5-5.1); Sodium 130 mmol/L (136-145)
[2019-11-26] MEDS: Carvedilol 6.25 MG TAB PO SCH (08:26)
[2019-11-26] MEDS: Fludrocortisone Acetate 0.1 MG TAB PO SCH (08:26)
[2019-11-26] MEDS: Aspirin 81 mg Enteric Coated Tablet PO SCH (08:27)
[2019-11-26] MEDS: Apixaban 5 MG TAB PO SCH (08:27)
[2019-11-26 10:58] VITALS: BP 135/60; TEMP 98.1
--- NOTE | 2019-11-26 13:02 | PRG ---
DATE OF SERVICE: 11/26/2019 SUBJECTIVE: Patient was seen and examined at bedside and overnight events noted. Patient denies any shortness of breath or chest pain or palpitation. No history of nausea or vomiting or diarrhea or fever or chills or cramps. OBJECTIVE: GENERAL: This is a well-built male, in no apparent distress. VITAL SIGNS: Temperature 98.1. Heart rate 63. Respiratory rate 18. Blood pressure 135/60. HEENT: Atraumatic, normocephalic. Oral mucosa is moist. NECK: Supple. CARDIOVASCULAR: S1, S2 heard. Rate and rhythm regular. RESPIRATORY: Clear to auscultation. GASTROINTESTINAL: Abdomen is soft. MUSCULOSKELETAL: No tenderness. No edema. DERMATOLOGIC: No skin rash. NEUROLOGIC: Alert and awake and oriented x3. No focal neurologic deficits. Moving all the extremities. PSYCHIATRIC: Mood and affect normal. LABORATORY DATA: Sodium 130, potassium 4.1, and creatinine is 0.6. ASSESSMENT AND PLAN: 1. Hyponatremia, stable labs. Continue current management. Limit fluid intake if tolerated. 2. Altered mentation. 3. Orthostatic hypotension, stable. adrenal insufficiency. Follow up with Endocrinology at [facility]. Follow up with Dr. Dueñas in 1 week. Job ID: [id number]
--- NOTE | 2019-11-27 16:47 | DIS ---
DATE OF ADMISSION: 11/22/2019 DATE OF DISCHARGE: 11/26/2019 DISCHARGE DIAGNOSES: 1. Hyponatremia. 2. Hypocortisolism. 3. Mild anemia. 4. Diabetes mellitus. 5. Coronary artery disease. BRIEF HOSPITAL COURSE: The patient with history of hyonatremia and adrenal insufficiency was admitted on account of hyponatremia of 121. He was admitted for monitoring. Nephrology was consulted and he was started on Tolvaptan with monitoring of his sodium. Sodium improved but slightly overcorrected to 133 however was returned to about 130 with dextrose. The patient was further monitored for the next 2 days. His sodium remained between 130 and 133 and was stable. His home fludrocortisone and hydrocortisone were restarted, and he was discharged with a sodium of 130 to follow up with his PCP and Nephrology. DISCHARGE PHYSICAL EXAMINATION: GENERAL: The patient was comfortable in bed, in no acute distress. CARDIOVASCULAR: S1 and S2 present and normal. No murmurs, gallops, or rubs. RESPIRATORY: Breath sounds adequate bilaterally. ABDOMEN: Generally, benign. EXTREMITIES: No extremity edema. DISCHARGE MEDICATIONS: 1. Amlodipine 5 mg daily. 2. Aspirin 81 mg daily. 3. Atorvastatin 40 mg daily. 4. Hydrocortisone 15 mg p.o. q.a.m. 5. Metformin 1000 mg daily. 6. Apixaban 5 mg b.i.d. 7. Coreg 6.25 mg b.i.d. 8. Fludrocortisone 0.1 mg daily. 9. Lisinopril 10 mg daily. CONSULTANTS: Nephrology- Dr. Lopez. Follow up: PCP, Nephrology Dr. Dueñas DISCHARGE CONDITION: Stable. Job ID: [id number] [facility]
--- NOTE | 2019-11-30 01:13 | PQF ---
CLINICAL DOCUMENTATION CLARIFICATION FORM: Dear : Tyler Cali MD Date / Time: 11/30/2019 Please exercise your independent, professional judgment in responding to the clarification form. Clinical indicators are provided on the bottom of this form for your review Please check appropriate box(es): [ ] Encephalopathy: Type: [ ] Acute [ ] Subacute [ ] Chronic Etiology: [ ] Hypertensive [ ] Metabolic [ ] Toxic [ ] Hypoxic [ ] Wernickes [ ] Drug induced: [ ] Unspecified [ ] Other (please specify) [ x ] Transient Alteration of Awareness [ ] Other diagnosis (Please specify if any) [ ] Unable to determine In addition, please specify: Present on Admission (POA): [x ] Yes [ ] No [ ] Unable to determine Physician Signature: Date/Time: For continuity of documentation, please document condition throughout progress notes and discharge summary. Thank You. To be completed by CDI/Coding staff for physician review: Present Clinical Indicators - Signs / Symptoms / Labs Results and Location in Medical Record [ ] Altered mental status / confusion (i.e.: improving once underlying cause is corrected) [ x ] Confusion H&P on 11/21 [ x ] Metabolic / electrolyte abnormality H&P on 11/21 [ x ] Altered mentation Progress notes on 11/25 [ ] Sepsis/Infectious process [ x ] Hypertension- continu amlodipine H&P on 11/21 [ x ] SIADH H&P on 11/21 [ ] Cerebral Edema [ ] Severe malnutrition [ ] EEG Present Risk Factors Results and Location in Medical Record [ x ] Hypertension - uncontrolled H&P on 11/21 [ x] Aged person 79 yrs H&P on 11/21 [ ] Cirrhosis/ Liver disease [ ] Meningitis [ ] Brain tumor / elevated ICP [ ] DKA or hypoglycemia Present Treatments Results and Location in Medical Record [ x ] Plan is to limit fluid intake and continue on steroids for now and monitor sodium one more day Progress notes on 11/24 [ ] Underlying cause corrected, encephalopathy resolved [ ] Antihypertensives (IV) [ ] Lactulose and Liver studies [ ] Oxygen therapy [ ] Nutritional supplements-TPN/TF [ x] Hyponatemia , stable labs. Continue current management. Limit fluid intake if tolerated Progress notes on 11/25 [ ] IV antibiotics CDS/Signal Helper Signature: LACHO Phone #: Date/Time: 11/30/2019 This is a permanent part of the Medical Record [facility]
== END 2019-11-26 11:46 | disposition home or self-care (01) | DRG 644 ==
LOC: ERS 15:58 → 2NO 18:18
PROVIDERS: ADMIT Student in an Organized Health Care Education/Training Program; ATTEND Student in an Organized Health Care Education/Training Program
DX: E22.2 Syndrome of inappropriate secretion of antidiuretic hormone (principal); E87.2 Acidosis; E27.40 Unspecified adrenocortical insufficiency; I10 Essential (primary) hypertension; E87.8 Other disorders of electrolyte and fluid balance, not elsewhere classified; E11.9 Type 2 diabetes mellitus without complications; E78.00 Pure hypercholesterolemia, unspecified; D64.9 Anemia, unspecified; I25.10 Atherosclerotic heart disease of native coronary artery without angina pectoris; Z20.828 Contact with and (suspected) exposure to other viral communicable diseases; I48.0 Paroxysmal atrial fibrillation; J43.9 Emphysema, unspecified; I95.1 Orthostatic hypotension; Z98.42 Cataract extraction status, left eye; Z87.891 Personal history of nicotine dependence; Z98.41 Cataract extraction status, right eye; Z79.84 Long term (current) use of oral hypoglycemic drugs; Z88.8 Allergy status to other drugs, medicaments and biological substances; Z79.82 Long term (current) use of aspirin; Z79.899 Other long term (current) drug therapy; R40.4 Transient alteration of awareness
CPT/HCPCS: 36415; 80048; 82533; 83735; 83930; 83935; 84100; 84300; 84443; 85014; 85018; 85025; 85049; 87635; 96360; U0003

== ENCOUNTER 2021-04-11 15:35 | Outpatient (CLI) | payer MEDICARE | END 2021-04-11 15:36 | disposition home or self-care (01) | LOC: BICRAD 15:35 | PROVIDERS: ATTEND Family Medicine | DX: M54.41 Lumbago with sciatica, right side (principal); M47.816 Spondylosis without myelopathy or radiculopathy, lumbar region | CPT/HCPCS: 72100 ==

== ENCOUNTER 2021-04-18 10:05 | Outpatient (CLI) | payer MEDICARE | END 2021-04-18 10:06 | disposition home or self-care (01) | LOC: SCSMRI 10:05 | PROVIDERS: ATTEND Family Medicine | DX: M47.26 Other spondylosis with radiculopathy, lumbar region (principal) | CPT/HCPCS: 72148 ==